=== PATIENT | female | born 1950 | race Caucasian/White ===

== ENCOUNTER 2023-08-04 09:00 | Outpatient (CLI) | payer MEDICARE, SELFPAY ==
--- NOTE | 2023-08-04 09:11 | NM_ITS ---
FINAL REPORT CLINICAL HISTORY: Abn MRI performed at another facility, Eval for metastisis, mid back pain, bilaterl arm pain and numbness, bilateral leg pain no hx of cancer per patient 9:25am 24.9 [facility] tc mdp FINDINGS: EXISTING RELEVANT IMAGING STUDIES: TECHNIQUE: The patient was injected with 24.9 mCi of technetium 99-[id number]. 3 hour delayed images were obtained. FINDINGS: No other abnormal tracer activity is identified to suggest occult fracture or metastatic disease. IMPRESSION: No findings to indicate metastatic bone disease. Reviewed, Interpreted and Dictated by Rochelle Gonzales MD Transcribed by Kendy Barr Authenticated and [facility]
[2023-08-04] MEDS: SODIUM CHLORIDE 0.9% 10ML SYR (RAD ONLY) 10 ML IV (09:30)
[2023-08-04] MEDS: ISOTOPE MDP (BONE);1 DOSE VIAL IV (09:30)
== END 2023-08-04 23:59 ==
LOC: RAD 09:02
PROVIDERS: Visit Provider Specialist
DX: G95.0 Syringomyelia and syringobulbia (principal); M79.603 Pain in arm, unspecified; R29.898 Other symptoms and signs involving the musculoskeletal system; R93.89 Abnormal findings on diagnostic imaging of other specified body structures
CPT/HCPCS: 78306; A9503

== ENCOUNTER 2023-08-06 16:03 | Outpatient (CLI) | payer MEDICARE, SELFPAY ==
[2023-08-06 16:55] LABS: Alanine Aminotransferase 20 U/L (12-78); Albumin Level 4.5 g/dl (3.5-5.0); Albumin/Globulin Ratio 1.7 (1.1-1.8); Alkaline Phosphatase 72 U/L (38-126); Anion Gap 11.9 mEq/L (5-15); Aspartate Amino Transferase 26 U/L (14-36); Bilirubin,Total 0.6 mg/dl (0.2-1.3); Blood Urea Nitrogen 8 mg/dl (7-17); Calcium 9.6 mg/dl (8.4-10.2); Carbon Dioxide 29 mmol/L (22.0-30.0); Chloride 103 mmol/L (98-107); Estimated Glomerular Filt Rate 122 ml/min (>60); GFR (African American) 148 ML/MIN (>60); Globulin 2.6 g/dL (1.3-3.2); Glucose 98 mg/dl (74-100); Potassium 3.9 mmoL/L (3.5-5.1); Sodium 140 mmol/L (136-145); Total Protein,Serum 7.1 g/dl (6.3-8.2)
[2023-08-06 17:37] LABS: Erythrocyte Sedimentation Rate 9 mm/hr (0-30)
[2023-08-06 17:45] LABS: Vitamin B12 783 pg/mL (239-931)
[2023-08-07 13:49] LABS: Anti-Centromere B Antibodies <0.2 AI (0.0-0.9); Anti-DNA (DS) Ab Qn <1 IU/mL (0-9); Anti-Jo-1 <0.2 AI (0.0-0.9); Anti-Smith Antibody <0.2 AI (0.0-0.9); Antichromatin Antibodies <0.2 AI (0.0-0.9); Antiscleroderma-70 Antibodies <0.2 AI (0.0-0.9); RNP Antibodies 0.2 AI (0.0-0.9); Sjogren's Anti-SS-A <0.2 AI (0.0-0.9); Sjogren's Anti-SS-B <0.2 AI (0.0-0.9)
== END 2023-08-06 23:59 ==
LOC: LAB 16:04
PROVIDERS: PCP Internal Medicine Adolescent Medicine; Visit Provider Specialist
DX: G54.0 Brachial plexus disorders (principal); G95.0 Syringomyelia and syringobulbia; M79.603 Pain in arm, unspecified; R29.898 Other symptoms and signs involving the musculoskeletal system; R93.89 Abnormal findings on diagnostic imaging of other specified body structures
CPT/HCPCS: 36415; 80053; 82607; 85651; 86225; 86235

== ENCOUNTER 2024-07-20 20:09 | Inpatient (IN) | payer MEDICARE, SELFPAY ==
[2024-07-20] VITALS (9 sets, daily range): BP systolic 171–182; BP diastolic 69–87; PULSE 82–95; RESP 16; TEMP 36.8–37.3; O2SAT 91–97; BMI 17.9
--- NOTE | 2024-07-20 20:02 | CT_ITS ---
PROCEDURE INFORMATION: Exam: CT Lumbar Spine Without Contrast Exam date and time: 07/20/2024 8:25 PM Age: 73 years old Clinical indication: Injury or trauma; Fall; Blunt trauma (contusions or hematomas); Additional info: Fall, midline and L hip TECHNIQUE: Imaging protocol: Computed tomography of the lumbar spine without contrast. Radiation optimization: All CT scans at this facility use at least one of these dose optimization techniques: automated exposure control; mA and/or kV adjustment per patient size (includes targeted exams where dose is matched to clinical indication); or iterative reconstruction. COMPARISON: CT LUMBAR SPINE WO CON 07/20/2024 8:19 PM FINDINGS: Bones/joints: There are 6 lumbar type vertebral bodies with lumbarization of S1. There is a mild superior endplate compression deformity at L1 and L2 without osseous retropulsion. Spinal cord: There is no significant central canal or neural foraminal stenosis. Soft tissues: Unremarkable. IMPRESSION: Mild age indeterminate compression fractures at L1 and L2. Transitional anatomy with lumbarized S1 vertebral body. No significant central canal or neural foraminal stenosis.
--- NOTE | 2024-07-20 20:02 | CT_ITS ---
PROCEDURE INFORMATION: Exam: CT Pelvis Without Contrast, Skeleton Exam date and time: 07/20/2024 8:19 PM Age: 73 years old Clinical indication: Injury or trauma; Fall; Blunt trauma (contusions or hematomas); Left; Hip; Additional info: Fall, L hip pain TECHNIQUE: Imaging protocol: Computed tomography of the pelvis without contrast. Exam focused on the skeleton. Radiation optimization: All CT scans at this facility use at least one of these dose optimization techniques: automated exposure control; mA and/or kV adjustment per patient size (includes targeted exams where dose is matched to clinical indication); or iterative reconstruction. COMPARISON: NM BONE SCAN WHOLE BODY 08/04/2023 12:58 PM FINDINGS: Vasculature: Moderate calcification of the aorta and iliac arteries. Bones/joints: Impacted mildly displaced fracture of the subcapital left femoral neck. Cortical and trabecular irregularity in the medial right superior pubic rami and pubic tubercle. Soft tissues: 3 cm subcutaneous hematoma posterior to the left greater trochanter. IMPRESSION: 1. Impacted mildly displaced fracture of the subcapital left femoral neck. 2. Cortical and trabecular irregularity in the medial right superior pubic rami and pubic tubercle. Suspicious for nondisplaced fracture, possibly subacute.
--- NOTE | 2024-07-20 20:02 | CT_ITS ---
PROCEDURE INFORMATION: Exam: CT Left Lower Extremity, Hip Exam date and time: 07/20/2024 8:22 PM Age: 73 years old Clinical indication: Injury or trauma; Fall; Blunt trauma; Hip; Left; Additional info: Fall, L lateral and posterior hip pain TECHNIQUE: Imaging protocol: CT of the left lower extremity without contrast was performed. Exam focused on the hip. Radiation optimization: All CT scans at this facility use at least one of these dose optimization techniques: automated exposure control; mA and/or kV adjustment per patient size (includes targeted exams where dose is matched to clinical indication); or iterative reconstruction. COMPARISON: CT BONY PELVIS 07/20/2024 8:19 PM FINDINGS: Bones/joints: Impacted fracture of the subcapital femoral neck with mild proximal retraction and posterior displacement of the distal fragment. Soft tissues: Normal. IMPRESSION: Impacted fracture of the subcapital femoral neck with mild proximal retraction and posterior displacement of the distal fragment.
--- NOTE | 2024-07-20 20:09 | PC.NURSE ---
pt to CT via stretcher
[2024-07-20] MEDS: KETOROLAC 30MG/ML VIAL 15 MG IV (20:10)
[2024-07-20] MEDS: ONDANSETRON 4MG/2ML VIAL 4 MG IV (20:10)
[2024-07-20] MEDS: HYDROMORPHONE 2MG/ML SYRINGE 0.5 MG IV (20:11)
[2024-07-20] MEDS: METHOCARBAMOL 500MG TABLET 1500 MG PO (20:51)
--- NOTE | 2024-07-20 20:51 | HMH.EDGENADL ---
Discharge Plan Disposition Patient Disposition: Admitted Chief Complaint: Fall Prescriptions Prescriptions: No Action multivitamin Tablet 1 tab PO DAILY mirtazapine 15 mg tablet 15 mg PO DAILY calcium carb-vit D2-soybean 600-200-25 mg-unit-mg tablet 600 tab PO .Q week hydroxyzine pamoate 25 mg capsule 25 mg PO DAILY gabapentin 300 mg capsule 300 mg PO DAILY MDD 900 mg Qty: 90 3RF Rx Instructions: 300 mg po qam and 600 mg po qhs Referrals Follow up/Referrals: Lawson Yarbrough MD [Primary Care Provider] - See instructions Clinical Impressions Clinical Impression: Closed fracture of left hip Print Language Print Language: [place]i Discharge ED Provider: Micheal Hernadez General Adult HPI General Chief complaint: Fall Stated complaint: Fall Time Seen by Provider: 07/20/24 20:10 Mode of Arrival: EMS Source of Information: Patient and EMS Limitations: Physical Limitations Description of Symptoms (Recalled from ER Triage Doc. by RN): Patient tripped over dogs water bowl which caused her to fall, striking her left side, elbow and hip. History of Present Illness HPI narrative: Please note that above description of symptoms, in this electronic medical record under categorization of recalled from ER triage doctor by RN are reflective of an initial nursing assessment, however, is not reflective of my full history and physical exam that was personally taken and clarified. Consequentially, this preceding description of symptoms, which may include the patient's categorized chief complaint in the EMR, do not reflect my personal clinical impression, and the ultimate description of history of present illness and patient stated complaints should be deferred to this section of the note. Unless stated otherwise or congruent with this section of the note, additional signs, symptoms, or incongruence should be interpreted as inaccurate with my clinical impression. Related Data Home Medications ?Medication ?Instructions ?Recorded ?Confirmed calcium carb-vit D2-soybean 600 600 tab PO .Q week 07/28/23 07/20/24 mg-200 unit-25mg tablet mirtazapine 15 mg tablet 15 mg PO DAILY 07/28/23 07/20/24 multivitamin 1 tab PO DAILY 11/17/23 07/20/24 hydroxyzine pamoate 25 mg capsule 25 mg PO DAILY 05/18/24 07/20/24 Previous Rx's ?Medication ?Instructions ?Recorded gabapentin 300 mg capsule 300 mg PO DAILY Neuropathic pain 05/18/24 #90 caps Allergies Allergy/AdvReac Type Severity Reaction Status Date / Time Sulfa (Sulfonamide Allergy Unknown Hives Verified 07/20/24 20:17 Antibiotics) codeine Allergy Hives Ver[facility]20/24 [facility] Disclaimer: The information contained in this section may have been updated after the patient was seen, as this information can be updated by other users. Medical History (Updated 07/20/24 @ 21:29 by Micheal Hernadez MD) Neuropathy Abnormal CT of the chest COPD (chronic obstructive pulmonary disease) History of cataract Depression Surgical History History of surgery on wrist Family History Other Cancer Social History Smoking Status: Former smoker tobacco type: cigarettes smoking status start date: 40 yrs ago alcohol intake: never substance use type: denies use current occupational status: retired Travel in the last 8 weeks: None household members: family housing: house marital status: single number of children: 1 Have you lived/traveled outside [place] in past 30 days?: No Contact w/someone who lives/traveled outside US past 30 days?: No Exposure to someone with infectious disease in past 14 days?: No Do you have a fever (greater than 100.4 F or 38 C)?: No Have you tested positive for COVID-19: No Exposed to someone with COVID-19 in past 14 days?: No Do you have a sore throat?: No Do you have a cough?: No Do you have any weakness?: No Do you have any diarrhea?: No Are you experiencing any unusual bleeding?: No Do you have any muscle aches/pain?: No Do you have any abdominal pain?: No Are you experiencing loss of taste or smell?: No Other Medical History Have you received the Pneumonia Vaccine: No ROS Obtained: Yes All systems reviewed & no additional complaints except as documented Physical Exam General General appearance: alert, in distress and cachectic Head Head exam: atraumatic and normocephalic Eye Eye exam: Present normal appearance, PERRL and EOMI Neck Neck exam: Present normal inspection, full ROM and trachea midline Respiratory Respiratory exam: Absent respiratory distress, wheezes, stridor, accessory muscle use or prolonged expiratory phase Cardiovascular Cardiovascular exam: Present other (Pulses equal symmetric in upper and lower extremities) Abdominal Exam Abdominal exam: Present soft; Absent distention, tenderness or pulsatile mass Extremities Exam Extremities exam: Present other (Per MDM); Absent edema Neurological Exam Neurological exam: Present alert, oriented X3 and CN II-XII intact; Absent motor sensory deficit Skin Skin exam: Present warm and dry; Absent diaphoresis or erythema Medical Decision Making Medical Records Medical records reviewed: Yes I reviewed the patient's medical records. Screening: Per USPSTF and CDC recommendations, given the prevalence of disease in our region, it is our hospital?s policy to screen for HIV and viral Hepatitis for all patients aged 18 and over and those with ongoing risk factors. Bryson Inquiry Pt receiving controlled substance: No Bryson was queried for this patient: No Vital Signs: 07/20/24 20:03 07/20/24 20:05 07/20/24 20:17 Temperature 99.1 F 99.1 F 99.1 F Temperature Source Axillary Axillary Axillary Pulse Rate 94 H Pulse Rate [Right Radial] 94 H 94 H Respiratory Rate 16 16 16 Blood Pressure 178/84 H Blood Pressure [Right Arm] 178/84 H 178/84 H Blood Pressure Mean [Right Arm] 115 115 Blood Pressure Source Automatic Cuff Blood Pressure Source [Right Arm] Automatic Cuff Automatic Cuff Blood Pressure Position Supine Blood Pressure Position [Right Arm] Supine 02 Sat by Pulse Oximetry 96 96 96 Oxygen Delivery Method Room Air Room Air Room Air 07/20/24 20:23 Temperature 98.6 F Temperature Source Oral Pulse Rate 83 Pulse Rate [Right Radial] Respiratory Rate 16 Blood Pressure 174/69 H Blood Pressure [Right Arm] Blood Pressure Mean [Right Arm] Blood Pressure Source Blood Pressure Source [Right Arm] Blood Pressure Position Blood Pressure Position [Right Arm] 02 Sat by Pulse Oximetry 92 L Oxygen Delivery Method Room Air Orders (Tests/Meds): ED MEDICATIONS Generic Name Dose Route Start Last Admin Trade Name Freq PRN Reason Stop Dose Admin Acetaminophen 650 mg 07/20/24 21:16 Acetaminophen 325mg Tab PO 08/19/24 21:15 Q4HP PRN Fever or Mild Pain (1-3) Hydrocodone Bitart/Acetaminophen 1 tab 07/20/24 21:16 Hydrocodone/Apap 5/325 Mg Tablet PO 08/19/24 21:15 Q4HP PRN Mild to Moderate Pain (1-6) Enoxaparin Sodium 40 mg 07/21/24 09:00 Enoxaparin 40mg/0.4ml Syringe SUBCUT 08/20/24 08:59 DAILY JAMESON Hydromorphone HCl 1 mg 07/20/24 21:16 Hydromorphone 2mg/Ml Syringe IV 08/19/24 21:15 Q4HP PRN Severe Pain (7-10) Sodium Chloride 1,000 mls @ 75 mls/hr 07/20/24 21:30 Sod Chlor 0.9% 1000ml Bag IV 08/19/24 21:29 .[id number] JAMESON Discontinued Medications Generic Name Dose Route Start Last Admin Trade Name Freq PRN Reason Stop Dose Admin Hydromorphone HCl 0.5 mg 07/20/24 20:02 07/20/24 20:11 Hydromorphone 2mg/Ml Syringe IV 07/20/24 20:03 0.5 mg ONCE ONE Administration Ketorolac Tromethamine 15 mg 07/20/24 20:02 07/20/24 20:10 Ketorolac 30mg/Ml Vial IV 07/20/24 20:03 15 mg ONCE ONE Administration Methocarbamol 1,500 mg 07/20/24 20:46 07/20/24 20:51 Methocarbamol 500mg Tablet PO 07/20/24 20:47 1,500 mg ONCE ONE Administration Ondansetron HCl 4 mg 07/20/24 20:02 07/20/24 20:10 Ondansetron 4mg/2ml Vial IV 07/20/24 20:03 4 mg ONCE ONE Administration ORDERS Category Date Time Status CT bony pelvis Stat Cat Scan 07/20/24 20:[address] hip LT wo con Stat Cat Scan 07/20/24 20:[address] lumbar spine wo con Stat Cat Scan 07/20/24 20:02 Completed Consult to On-Call Orthopedic Surgeon [CONS] Routine Cons 07/21/24 09:00 Ordered Basic Metabolic Panel [facility] 07/21/24 06:00 Ordered Basic Metabolic Panel [facility] 07/22/24 06:00 Ordered Basic Metabolic Panel [facility] Lab 07/23/24 06:00 Ordered Basic Metabolic Panel [facility] Lab 07/24/24 06:00 Ordered Basic Metabolic Panel [facility] Lab 07/25/24 06:00 Ordered Basic Metabolic Panel [facility] Lab 07/26/24 06:00 Ordered Basic Metabolic Panel [facility] Lab 07/27/24 06:00 Ordered Basic Metabolic Panel [facility] Lab 07/28/24 06:00 Ordered Basic Metabolic Panel [facility] Lab 07/29/24 06:00 Ordered Basic Metabolic Panel [facility] Lab 07/30/24 06:00 Ordered Complete Blood Count Auto Diff [facility] Lab 07/21/24 06:00 Ordered Complete Blood Count Auto Diff [facility] Lab 07/22/24 06:00 Ordered Complete Blood Count Auto Diff [facility] Lab 07/23/24 06:00 Ordered Complete Blood Count Auto Diff [facility] Lab 07/24/24 06:00 Ordered Complete Blood Count Auto Diff [facility] Lab 07/25/24 06:00 Ordered Complete Blood Count Auto Diff [facility] Lab 07/26/24 06:00 Ordered Complete Blood Count Auto Diff [facility] Lab 07/27/24 06:00 Ordered Complete Blood Count Auto Diff [facility] Lab 07/28/24 06:00 Ordered Complete Blood Count Auto Diff [facility] Lab 07/29/24 06:00 Ordered Complete Blood Count Auto Diff [facility] Lab 07/30/24 06:00 Ordered HIV Combo Routine Lab 07/20/24 20:10 Ordered Hepatitis C Ab Qual. W/ RFX Routine Lab 07/20/24 20:10 Ordered ECG Request Routine Y 07/20/24 21:16 Ordered Medical Decision Narrative: 73-year-old female history of hypertension, COPD presenting with fall. Patient states that she was walking around at home, tripped over her dog leash. Landed on her left hip. Unable to bear weight since that time, so called EMS. EMS brought her to the emergency department. EMS gave 50 mcg of fentanyl, patient states that did not help almost at all. Pain is left lateral hip, not in inguinal fold. 10 out of 10. States she did not hit her head, did not lose consciousness, no anticoagulation. History was obtained via conversation with patient. On arrival, patient hemodynamically stable, alert, oriented x4, appropriate, GCS 15, moving all extremities spontaneously, pupils equal and reactive to light. Full physical exam performed and significant for chronically ill-appearing female in moderate to severe distress secondary to pain. Neurovascularly intact left lower extremity, however it is shortened, internally rotated, and maximally tender with any motion of the left lower extremity. Differential includes fracture, sprain, strain, dislocation, among others. Patient placed on continuous cardiac monitoring and continuous pulse ox with initial blood pressure 174/84, heart rate 94, saturation 96% on room air. Patient was given IV Dilaudid and Toradol for symptomatic management and correction of underlying abnormalities. Patient also given Robaxin p.o. for muscle spasm. Workup independently interpreted and significant for subacute right pubic rami fractures which are in stages of healing. Corticated. Patient has anatomic left femoral neck fracture with mild displacement and rotation. On reevaluation, patient in significant pain, given more pain medications. Orthopedics was consulted and case was discussed, graciously accepted patient for admission and surgical fixation tomorrow, 07/21. N.p.o. at midnight. Given patient presentation, workup, history, this most likely represents left anatomic femoral neck fracture after fall. Because patient high risk for clinical decompensation, deemed appropriate for inpatient admission. Results were relayed to patient who voiced understanding and patient was agreeable to inpatient admission and management. Patient was admitted to the hospital for further definitive management. Division [employer] disclaimer Much of this encounter note is an electronic functional mental disability teacher spoken language to printed text. Electronic functional mental disability teacher of the spoken language may permit errors. Although I have reviewed the note, some errors may still exist. Critical Care Critical Care Time Critical Care Time: No
--- NOTE | 2024-07-20 21:21 | EXP.HP ---
History of Present Illness *Admission Date: 07/20/24 *Reason for visit:: Hip pain *History of present illness: This is a 73-year-old female with a past medical history significant for neuropathy, COPD, cataracts, and depression presents with a chief complaint of left hip pain. Due to patient's symptoms, she was transitioned to the emergency room via EMS for evaluation. While in emergency room, CT scan of the hip revealed an impacted mildly displaced fracture of the subcapital left femoral neck, cortical and trabecular irregularity in the medial right superior pubic rami and pubic tubercle suspicious for nondisplaced fracture which is possibly subacute. Due to these findings, patient has been admitted for further management. During my evaluation of patient, patient states she tripped over her dog leash. Post fall she had pain to her left hip. She was unable to bear weight post fall. Prior to the fall, patient states that she was able to tolerate walking to and from her mailbox without any shortness of breath, she states she can ascend stairs without any shortness of breath, and she can lift at least 10 pounds. This is a METS of at least 4. She is currently denying any syncope, near syncope, chest pain, shortness of breath, lightheadedness, dizziness, fever, chills, rigors, nausea, vomiting, or diarrhea. Additional workup in emergency room was nonrevealing. [facility] Disclaimer: The information contained in this section may have been updated after the patient was seen, as this information can be updated by other users. Medical History (Updated 07/20/24 @ 21:30 by Margarito Marte APRN) Neuropathy Abnormal CT of the chest COPD (chronic obstructive pulmonary disease) History of cataract Depression Surgical History History of surgery on wrist Family History Other Cancer Social History (Updated 07/20/24 @ 22:20 by Rosangela Slaughter RN) Smoking Status: Former smoker tobacco type: cigarettes smoking status start date: 40 yrs ago alcohol intake: never substance use type: denies use current occupational status: retired Travel in the last 8 weeks: None household members: family housing: house marital status: single number of children: 1 Have you lived/traveled outside US in past 30 days?: No Contact w/someone who lives/traveled outside US past 30 days?: No Exposure to someone with infectious disease in past 14 days?: No Do you have a fever (greater than 100.4 F or 38 C)?: No Have you tested positive for COVID-19: No Exposed to someone with COVID-19 in past 14 days?: No Do you have a sore throat?: No Do you have a cough?: No Do you have any weakness?: No Are you experiencing any nausea/vomitting?: No Do you have any diarrhea?: No Are you experiencing any unusual bleeding?: No Do you have any muscle aches/pain?: No Do you have any abdominal pain?: No Are you experiencing loss of taste or smell?: No Other Medical History Have you received the Pneumonia Vaccine: No Review of Systems Review of Systems Review of systems:: pertinent systems reviewed and negative unless documented below Constitutional Constitutional: Reports system reviewed and no additional complaints, except as documented Eyes Eyes: Reports system reviewed and no additional complaints, except as documented ENT Ears, Nose, Mouth, and Throat: Reports system reviewed and no additional complaints, except as documented *Cardiovascular Cardiovascular: Reports system reviewed and no additional complaints, except as documented *Respiratory Respiratory: Reports system reviewed and no additional complaints, except as documented *Gastrointestinal Gastrointestinal: Reports system reviewed and no additional complaints, except as documented *Genitourinary Genitourinary: Reports system reviewed and no additional complaints, except as documented *Musculoskeletal Musculoskeletal: Reports arthralgias and Reports limited range of motion Integumentary/Breasts Skin/Breast: Reports system reviewed and no additional complaints, except as documented *Neurologic Neurologic: Reports system reviewed and no additional complaints, except as documented Psychiatric Psychiatric: Reports system reviewed and no additional complaints, except as documented Endocrine Endocrine: Reports system reviewed and no additional complaints, except as documented Hematologic/Lymphatic Hematologic/Lymphatic: Reports system reviewed and no additional complaints, except as documented Allergic/Immunologic Allergic/Immunologic: Reports system reviewed and no additional complaints, except as documented Meds Home Medications and Allergies Home Medications ?Medication ?Instructions ?Recorded ?Confirmed ?Type calcium carb-vit D2-soybean 600 1 tab PO .Q week 07/28/23 07/20/24 History mg-200 unit-25mg tablet mirtazapine 15 mg tablet 30 mg PO DAILY 07/28/23 07/20/24 History multivitamin 1 tab PO DAILY 11/17/23 07/20/24 History hydroxyzine pamoate 25 mg capsule 25 mg PO DAILY 05/18/24 07/20/24 History gabapentin 300 mg capsule See Rx Instructions .Route 07/20/24 07/20/24 History .COMPLEX Neuropathic pain New Prescriptions to Start Prescriptions: Allergies Allergy/AdvReac Type Severity Reaction Status Date / Time Sulfa (Sulfonamide Allergy Unknown Hives Verified 07/20/24 20:17 Antibiotics) codeine Allergy Hives Verified 07/20/24 20:17 Exam Data for Last 24 hours Vital signs and Labs for Last 24 Hours: Temp Pulse Resp BP Pulse Ox O2 Del Method 98.6 F 83 16 174/69 H 92 L Room Air 07/20/24 20:23 07/20/24 20:23 07/20/24 20:23 07/20/24 20:23 07/20/24 20:23 07/20/24 20:23 I & O for Last 24 hours: Intake & Output 07/17/24 07/18/24 07/19/24 07/20/24 23:59 23:59 23:59 23:59 Weight 41.73 kg Constitutional Constitutional: no acute distress, thin and cachectic *Routine HEENT Exam Head: Present normocephalic Eye: Present EOMI and PERRL ENT: Present mucous membranes moist Comments: Patient is a dentulous *Routine Neck Exam Neck: Present supple and full ROM *Routine Respiratory Exam Respiratory: Present normal respiratory effort, able to speak in complete sentences and symmetric chest movement *Routine Cardiovascular Exam Cardiovascular: Present RRR, Normal S1 and Normal S2 *Routine Abdominal Exam Abdominal: Present soft and normoactive bowel sounds *Routine Rectal Exam Rectal:: deferred *Routine Genitalia Exam Genitalia:: deferred *Routine Extremities Exam Extremities: Present pulses intact and normal capillary refill Comments: Left leg is likely turned laterally Routine Back/Spine/Pelvis Exam Back/Spine: Present pain with rotation *Routine Skin Exam Skin: Present intact and dry *Routine Neurological Exam Neurological: Present alert, oriented X3, CN II-XII intact and normal speech Routine Psychiatric Exam Psychiatric: Present normal affect, normal thought process, cooperative, good insight and good judgment H&P: Result Impressions 73-year-old female presents after she tripped and fell over her dog leash now has left hip fracture. Patient has no significant cardiac history and is able to tolerate at least 4 METS of activity. The orthopedic team voiced willingness to take patient to the OR suite for surgical fixation Assessment and Plan *Assessment and plan (1) Closed fracture of left hip: Status: Acute Qualifiers: Encounter type: initial encounter Qualified Code(s): S72.002A - Fracture of unspecified part of neck of left femur, initial encounter for closed fracture Category: Medical Code(s): S72.002A - Fracture of unspecified part of neck of left femur, initial encounter for closed fracture (2) Ground-level fall: Status: Acute Category: Medical Code(s): W18.30XA - Fall on same level, unspecified, initial encounter Plan Assessment Ground-level fall with trauma -Currently, patient is without any findings consistent with syncope -Patient does remember fall Mildly displaced left hip fracture -Patient currently has a revised cardiac index of 0 which is a 3.9% risk of major cardiac event -Other the general risks anesthesia this represents a mild risk surgery -Ultimately, it would be in patient's best interest to proceed with surgery -Patient does have significant advanced age -Will obtain EKG and 2D echo to further evaluate the heart-subjective change per attending Plan: [facility] Bed rest SCDs to bilateral lower extremity Supplemental oxygen to maintain oxygen saturation greater than 94% Vital signs every shift Consult orthopedic team Regular diet and then n.p.o. after midnight CBC/BMP daily 40 mg of enoxaparin subcu daily for DVT prophylaxis 5 mg [place] p.o. every 4 hours PMR pain 1 mg hydromorphone IV push every 4 hours as needed severe pain 4 mg Zofran IV push every 8 hours pain nausea vomiting I will discuss this case with attending physician Dr. Saul I look forward to more input
[2024-07-20] MEDS: HYDROMORPHONE 2MG/ML SYRINGE 1 MG IV (21:26)
--- NOTE | 2024-07-20 21:56 | PC.NURSE ---
Patient arrived to floor via stretcher from ED at 21:50.
[2024-07-20] MEDS: HYDROCODONE/APAP 5/325 MG TABLET 1 TAB PO (22:07)
[2024-07-20] MEDS: 0.9 % SODIUM CHLORIDE 1000ML 1,000 ML 75 ML IV (22:08)
[2024-07-20] MEDS: PROCHLORPERAZINE 10MG/2ML VIAL 10 MG IV (22:54)
--- NOTE | 2024-07-20 23:04 | ECG_ITS ---
APPROVED REPORT Exam: Resting ECG HR:84 bpm ECG Measurements Heart Rate 84 AXES MO 209 P 84 QRSd 80 QRS -41 QT 352 T 84 QTc 393 Conclusion SINUS RHYTHM WITH SINUS ARRHYTHMIA Atrial abnormality LEFT AXIS DEVIATION [QRS AXIS < -30] SEPTAL MYOCARDIAL INFARCTION , OF INDETERMINATE AGE [40+ ms Q WAVE IN V1/V2] ABNORMAL ECG UNCONFIRMED REPORT Electronically signed by : Lawson Yarbrough MD 07/21/2024 21:05:56
[2024-07-21] VITALS (21 sets, daily range): BP systolic 120–184; BP diastolic 62–91; PULSE 76–103; RESP 10–28; TEMP 36.4–43; O2SAT 90–99; BMI 18.8
--- NOTE | 2024-07-21 04:45 | PC.NURSE ---
patient was admitted this shift after falling at home, patient is alert and oriented X4, no acute changes since previous assessment, patient has been medicated per aug for pain in left hip, bed alarm is on and functioning, call button is in reach
[2024-07-21] MEDS: HYDROMORPHONE 2MG/ML SYRINGE 1 MG IV ×4 (04:55→16:19)
[2024-07-21 06:06] LABS: Basophils # 0.1 K/mm3 (0-0.2); Basophils % 0.7 % (0.1-2.0); Eosinophils % 0.2 % (0.1-12.0); Hematocrit 37.9 % (37.0-47.0); Hemoglobin 12.5 g/dL (12.2-16.2); Lymphocytes % 16.1 % (10-50); Mean Corpuscular Hemoglobin 31.1 pg (27.0-31.2); Mean Corpuscular Volume 94.3 fl (81-99); Mean Platelet Volume 10.8 fl (7.4-10.4); Neutrophils # 9.3 K/mm3 (1.8-7.8); Neutrophils % 74.6 % (37.0-80.0); Platelet Count 173 K/mm3 (142-424); Red Blood Count 4.02 M/mm3 (4.20-5.40); White Blood Count 12.5 K/mm3 (4.8-10.8)
[2024-07-21 06:13] LABS: Chloride 102 mmol/L (98-107); Sodium 135 mmol/L (136-145)
[2024-07-21 06:16] LABS: Blood Urea Nitrogen 12 mg/dl (7-17); Calcium 8.7 mg/dl (8.4-10.2); Carbon Dioxide 27 mmol/L (22.0-30.0); Creatinine Clearance Estimated 36 mL/min (50-200); Estimated Glomerular Filt Rate 157 ml/min (>60); GFR (African American) 190 ML/MIN (>60); Glucose 119 mg/dl (74-100)
--- NOTE | 2024-07-21 07:00 | CA_ITS ---
APPROVED REPORT EXAM: Comprehensive 2D, Doppler, and color-flow Echocardiogram Organic Chemistry Professor: Hanna Stoll RVT Ht: 4 ft 11 in Wt: 96lbs BSA: 1.35 BP: 174/69 mmHg Indications: PRE-OP LT HIP FX,COPD,CHF TDS-PT FLAT ON BACK-HIP FX M-Mode Dimensions RVDd 3.53 cm (0.9-2.6) LA Diam 2.27 cm (1.9-4.0) LVDd 3.32 cm (3.5-5.7) LVDs 2.07 cm (3.5-5.7) IVSd 0.71 cm (0.6-1.1) PWd 0.68 cm (0.6-1.1) EF (Teich) 69.00% FS 37.70% EDV (Teich) 44.80 mL TAPSE 2.79 (<1.7) ESV (Teich) 13.90 mL LV Diastology E Decel Time 150 (160-240 msec) E/A Ratio 0.8 Aortic Valve ADAM Index 1.33 cm2/m2 AoV Peak Min. 123.0 (50-130 cm/s) AO Peak GR. 6.10 mmHg AO Mean GR. 3.20 (<5 mmHg) AO VTI 25.7 (18-25 cm) ADAM (VTI) 1.83 (2.5-4.5 cm2) Mitral Valve MV E Max Min. 66.0 (40-130 cm/s) MV A Velocity 83.0 (40-130 cm/s) E/A Ratio 0.80 MV PHT 44.0 ms Pulmonary Valve PV Peak Velocity 79.0 (50-150 cm/s) Tricuspid Valve TR P. Velocity 357.00 cm/s RAP Estimate 10.00 mmHg RVSP 61.10 mmHg Left Ventricle The left ventricle is normal size. The left ventricular systolic function is normal. The left ventricular ejection fraction is within the normal range. There is increased LV wall thickness. The septum is asynchronous. Diastolic function is indeterminate. LVEF is 55%. Right Ventricle Right ventricle is moderately to severely dilated. Right ventricle is mildly hypokinetic. Atria Left atrium is mildly dilated. Right atrium is severely dilated. There is no Doppler evidence of interatrial shunt. Aortic Valve The aortic valve is mildly thickened. There is no aortic valvular stenosis. Trace aortic regurgitation. Mitral Valve The mitral valve is normal in structure. No evidence of mitral valve stenosis. Trace mitral regurgitation. Tricuspid Valve Tricuspid valve is grossly normal in structure and function. Moderate tricuspid regurgitation. RVSP is 45-50 mmHg. Pulmonic Valve The pulmonary valve is normal in structure. Trace pulmonic regurgitation. Great Vessels The aortic root is normal in size. The ascending aorta is normal in size. IVC is normal in size and collapses >50% with inspiration. Pericardium There is no pericardial effusion. Other Information Study Quality: Adequate Conclusion Normal LV systolic function. Moderate to severe RV dilation with mild reduction in RV function. Biatrial dilation. Moderate TR. Elevated RVSP 45-50 mmHg. Electronically signed by : Nory Bolton MD 07/21/2024 19:02:50
--- NOTE | 2024-07-21 07:32 | XR_ITS ---
FINAL REPORT CLINICAL HISTORY: preop, shortness of breath hip hemiarthroplasty COMPARISON: None FINDINGS: A portable view of the chest is obtained. Cardiac and mediastinal silhouettes are normal. There is no infiltrate, effusion, or pneumothorax. There are changes from emphysema. IMPRESSION: No acute process on this portable exam. Emphysema. Reviewed, Interpreted and Dictated by Rochelle Gonzales MD Transcribed by Yamel Abbasi Authenticated and [facility]
[2024-07-21 07:37] LABS: HIV Combo NEGATIVE (Negative)
--- NOTE | 2024-07-21 07:38 | P.CONS_ITS ---
History of Present Illness *Admission Date: 07/20/24 *History of present illness: This is a 73-year-old female with a past medical history significant for neuropathy, COPD, cataracts, and depression presents with a chief complaint of left hip pain. Due to patient's symptoms, she was transitioned to the emergency room via EMS for evaluation. While in emergency room, CT scan of the hip revealed an impacted mildly displaced fracture of the subcapital left femoral neck, cortical and trabecular irregularity in the medial right superior pubic rami and pubic tubercle suspicious for nondisplaced fracture which is possibly subacute. Due to these findings, patient has been admitted for further management. During my evaluation of patient, patient states she tripped over her dog leash. Post fall she had pain to her left hip. She was unable to bear weight post fall. Prior to the fall, patient states that she was able to tolerate walking to and from her mailbox without any shortness of breath, she states she can ascend stairs without any shortness of breath, and she can lift at least 10 pounds. Orthopedics consulted regarding definitive treatment options for hip fracture [facility] Disclaimer: The information contained in this section may have been updated after the patient was seen, as this information can be updated by other users. Medical History (Updated 07/21/24 @ 07:40 by Miky Cantrell DO) Neuropathy Abnormal CT of the chest COPD (chronic obstructive pulmonary disease) History of cataract Depression Surgical History History of surgery on wrist Family History Other Cancer Social History (Updated 07/20/24 @ 22:20 by Rosangela Slaughter RN) Smoking Status: Former smoker tobacco type: cigarettes smoking status start date: 40 yrs ago alcohol intake: never substance use type: denies use current occupational status: retired Travel in the last 8 weeks: None household members: family housing: house marital status: single number of children: 1 Have you lived/traveled outside US in past 30 days?: No Contact w/someone who lives/traveled outside US past 30 days?: No Exposure to someone with infectious disease in past 14 days?: No Do you have a fever (greater than 100.4 F or 38 C)?: No Have you tested positive for COVID-19: No Exposed to someone with COVID-19 in past 14 days?: No Do you have a sore throat?: No Do you have a cough?: No Do you have any weakness?: No Are you experiencing any nausea/vomitting?: No Do you have any diarrhea?: No Are you experiencing any unusual bleeding?: No Do you have any muscle aches/pain?: No Do you have any abdominal pain?: No Are you experiencing loss of taste or smell?: No Review of Systems *Neurologic Neurologic: Reports system reviewed and no additional complaints, except as documented Meds Home Medications and Allergies Home Medications ?Medication ?Instructions ?Recorded ?Confirmed ?Type calcium carb-vit D2-soybean 600 1 tab PO .Q week 07/28/23 07/20/24 History mg-200 unit-25mg tablet mirtazapine 15 mg tablet 30 mg PO DAILY 07/28/23 07/20/24 History multivitamin 1 tab PO DAILY 11/17/23 07/20/24 History hydroxyzine pamoate 25 mg capsule 25 mg PO DAILY 05/18/24 07/20/24 History gabapentin 300 mg capsule See Rx Instructions .Route 07/20/24 07/20/24 History .COMPLEX Neuropathic pain New Prescriptions to Start Prescriptions: Allergies Allergy/AdvReac Type Severity Reaction Status Date / Time Sulfa (Sulfonamide Allergy Unknown Hives Verified 07/20/24 20:17 Antibiotics) codeine Allergy Hives Verified 07/20/24 20:17 Ortho Exam (Inpt) Vital signs and Labs for Last 24 Hours: Temp Pulse Resp BP Pulse Ox O2 Del Method O2 Flow Rate 98.1 F 86 16 134/69 92 L Room Air 1 07/21/24 04:00 07/21/24 04:00 07/21/24 04:00 07/21/24 04:00 07/21/24 04:00 07/21/24 06:46 07/20/24 21:40 Laboratory Results - last 24 hr 07/21/24 05:31: WBC 12.5 H, RBC 4.02 L, Hgb 12.5, Hct 37.9, MCV 94.3, MCH 31.1, MCHC 33.0, RDW 13.0, Plt Count 173, MPV 10.8 H, Neut % (Auto) 74.6, Lymph % (Auto) 16.1, [place] % (Auto) 8.0, Eos % (Auto) 0.2, Baso % (Auto) 0.7, Neut # (Auto) 9.3 H, Lymph # (Auto) 2.0, [place] # (Auto) 1.0, Eos # (Auto) 0.0, Baso # (Auto) 0.1, Sodium 135 L, Potassium 4.0, Chloride 102, Carbon Dioxide 27, Anion Gap 10.0, BUN 12, Creatinine 0.40 L, Estimated Creat Clear 36, Estimated GFR 157, Est GFR ( Amer) 190, Glucose 119 H, Calcium 8.7 I & O for Labs for Last 24 Hours: Intake & Output 07/18/24 07/19/24 07/20/24 07/21/24 23:59 23:59 23:59 23:59 Intake Total 740 / 740 Output Total 375 / 375 Balance 365 / 365 Weight 92 lb 96 lb 1.6 oz Additional findings:: Left hip: Tenderness with any range of motion of the hip. Very mildly shortened. Groin pain with any attempted range of motion unable to lift leg. CT scan of the left hip show displaced femoral neck fracture. Results Labs 07/21/24 05:31 07/21/24 05:31 Labs: Abnormal lab results 07/21/24 Range/Units 05:31 WBC 12.5 H (4.8-10.8) K/mm3 RBC 4.02 L (4.20-5.40) M/mm3 MPV 10.8 H (7.4-10.4) fl Neut # (Auto) 9.3 H (1.8-7.8) K/mm3 Sodium 135 L (136-145) mmol/L Creatinine 0.40 L (0.52-1.04) mg/dl Glucose 119 H (74-100) mg/dl H & H 07/21/24 Range/Units 05:31 Hgb 12.5 (12.2-16.2) g/dL Hct 37.9 (37.0-47.0) % All other labs normal. Assessment and Plan *Assessment and plan (1) Left displaced femoral neck fracture: Status: Acute Category: Medical Code(s): S72.002A - Fracture of unspecified part of neck of left femur, initial encounter for closed fracture Plan I had a discussion with her this morning regarding treatment options. She has displaced femoral neck fracture. Operative intervention is indicated to allow for early weightbearing immobilization. PROPOSED SURGERY: Hemiarthroplasty left hip the risks and benefits of the proposed surgery were discussed in depth with the patient. Potential complications including inherent risk of anesthesia, infection, neurovascular damage, DVT, and rare but real potential loss of limb or life were all reviewed. Patient voices understanding and seems to understand to my satisfaction and wishes to proceed with surgery. I gave them adequate time to ask any questions they have pertaining to this surgery and answered all of them to the best of my ability. I gave them no guarantees in regards to outcomes of this surgery.
[2024-07-21 07:45] LABS: Hepatitis C Ab Qual. W/ RFX NEGATIVE (Negative)
[2024-07-21] MEDS: HYDROCODONE/APAP 5/325 MG TABLET 1 TAB PO ×3 (08:14→19:47)
--- NOTE | 2024-07-21 08:43 | HMH.PHAINT1 ---
Pharmacy Intervention Comments: MEDICATION RECONCILIATION COMPLETED ON PATIENT USING EXTERNAL FILL HISTORY FROM PHARMACY AND LIST FROM NEUROLOGY OFFICE. -ELINA CASTELLANOS, JOVANNYD
--- NOTE | 2024-07-21 12:06 | P.PNANES_ITS ---
[facility] Disclaimer: The information contained in this section may have been updated after the patient was seen, as this information can be updated by other users. Medical History (Updated 07/21/24 @ 07:40 by Miky Cantrell DO) Neuropathy Abnormal CT of the chest COPD (chronic obstructive pulmonary disease) History of cataract Depression Surgical History History of surgery on wrist Family History Other Cancer Social History (Updated 07/20/24 @ 22:20 by Rosangela Slaughter RN) Smoking Status: Former smoker tobacco type: cigarettes smoking status start date: 40 yrs ago alcohol intake: never substance use type: denies use current occupational status: retired Travel in the last 8 weeks: None household members: family housing: house marital status: single number of children: 1 Have you lived/traveled outside US in past 30 days?: No Contact w/someone who lives/traveled outside US past 30 days?: No Exposure to someone with infectious disease in past 14 days?: No Do you have a fever (greater than 100.4 F or 38 C)?: No Have you tested positive for COVID-19: No Exposed to someone with COVID-19 in past 14 days?: No Do you have a sore throat?: No Do you have a cough?: No Do you have any weakness?: No Are you experiencing any nausea/vomitting?: No Do you have any diarrhea?: No Are you experiencing any unusual bleeding?: No Do you have any muscle aches/pain?: No Do you have any abdominal pain?: No Are you experiencing loss of taste or smell?: No [facility] Anesthesia Checklist Patient Identification Patient Identification: Arm Band Structural Data Admitted From: Home Planned Operative Procedure/s: Left Hip Hemiarthroplasty Consent for Planned Operative Procedure(s) Verified: Yes Verified Documents: Surgical Consent and History and Physical NPO Status Verified Time NPO: 00:00 Additional verifications Anesthesia Reactions: No Airway Assessment Mallampati Score:: Class II C-Spine Mobility Assessed: Yes TMJ Mobility Assessed: Yes Dentition: Edentulous Neurological Assessment Level of Consciousness: Awake, Alert and Appropriate Anesthesia Plan Anesthesia Risk discussed: Yes Anesthesia Plan: Verified ASA Class: III Anesthesia Type: General
--- NOTE | 2024-07-21 12:09 | DIET.NUTRFU ---
when sx okay oral diet advance to MSOFT chopped with homemade vanilla and strawberry BID assist with meals, continue remeron tx. Based on PMH patient has had significant wt loss, chewing difficulties and tremors. She will need 1:1 assistance with meals. She qualifies for SPCM, provider aware
[2024-07-21] MEDS: CEFAZOLIN SODIUM 1 GM in 0.9 % SODIUM CHLORIDE 50 ML IV (12:25)
--- NOTE | 2024-07-21 14:56 | XR_ITS ---
FINAL REPORT CLINICAL HISTORY: S/P total arthroplasty left hip COMPARISON: None FINDINGS: SINGLE VIEW PELVIS: A single view of the pelvis was obtained. There are changes from total left hip arthroplasty. The hardware is intact. No immediate complication identified. There is no acute fracture or dislocation. Visualized joint spaces are normally aligned. There are expected soft tissue changes adjacent to the left hip. IMPRESSION: No acute abnormality status post total left hip arthroplasty. Reviewed, Interpreted and Dictated by Rochelle Gonzales MD Transcribed by Yamel Abbasi Authenticated and [facility]
--- NOTE | 2024-07-21 14:59 | EXP.ANES.I ---
[facility] Anesthesia Record Part I Anesthesia Record I Intake, IV Amount: 1,000 Hydration: Adequate Estimated blood loss (mL): 100 Urine output (mL): 200 Blood Products used (#): none Blood Pressure: 120/62 SaO2: 99 Pulse Rate: 78 Airway Patency: Patent Respiratory Rate: 10 Temperature: 98.6 F Patient is:: Drowsy and Stable Stable to PACU at:: 14:50
--- NOTE | 2024-07-21 15:14 | EXP.OP.NOTE ---
Date of procedure: 07/21/24 Pre-op Diagnosis:: Displaced left femoral neck fracture Post-op Diagnosis:: Same Procedure performed:: Hemiarthroplasty left hip Surgeon:: Miky Cantrell DO Retail Customer Service Specialist(s):: Liu JOSEPH QUICK PRINT OPERATOR:: Jayden Arceo Anesthesia: GETA Estimated blood loss (mL): 100 Operative findings:: Displaced femoral neck fracture Operative note:: Patient notified preoperatively. Left hip marked with yes my initial. Taken operating suite given general anesthesia airway secured. Then placed in the lateral position on the operative bed with all bony prominences well-padded and the hip holding device. All bony prominences well-padded. Then the left hip was prepped and draped normal sterile fashion. Once prepped and draped final operative timeout performed to identify proper patient procedure and extremity. Everyone involved the case agreed. No counter indications to beginning. Did receive preoperative antibiotics Marking pen was used to santos plan incision over the lateral hip. Skin knife was used incise through skin dissection was taken down the IT band which was cut in line with the femur Charnley retractor was placed this identified the abductors of the hip using a modified Hardinge approach abductors were split and retractor was placed to protect the abductors anteriorly. Capsule was split in line to identify the fracture site fracture hematoma evacuated. Cleanup osteotomy was performed of the femoral neck fingerbreadth above the lesser troches. Excess bone removed and the femoral head was removed sized to a size 47. Once the hip was removed the acetabular was cleaned with any debris and bone fragments. Attention was then brought to the femur and the leg was placed anteriorly within the bag femoral neck elevator was placed cookie cutter reamer was utilized for lateralization followed by the opening hand canal finder followed by the smallest broach and broached from a size 8 to a size 1212 gave good fit and fill within the canal. A size 12 implant was selected none collared press-fit stem as well as a 47 head and a +1.5 neck irrigation of the wound was performed. Once completed the final implant was impacted into place the hip was reduced and taken through range of motion found to be stable to flexion extension internal and external rotation. Irrigation repeated. Capsule then was closed with 0 Vicryl the abductors were repaired with FiberWire stitch. IT band closed with STRATAFIX suture deep layers 0 Vicryl subcutaneous 2-0 Vicryl surgical clips in the skin sterile dressing placed patient waken anesthesia taken recovery stable condition. Condition: stable Disposition: PACU Complications:: None apparent
[2024-07-21] MEDS: 0.9 % SODIUM CHLORIDE 1000ML 1,000 ML 75 ML IV (16:09)
[2024-07-21] MEDS: hydrOXYzine pamoate 25MG CAPSULE 25 MG PO (21:33)
[2024-07-21] MEDS: GABAPENTIN 300MG CAPSULE 600 MG PO (21:40)
[2024-07-21] MEDS: MIRTAZAPINE 15 MG TABLET 30 MG PO (21:41)
--- NOTE | 2024-07-21 21:54 | P.PN_ITS ---
Subjective *Date: 07/22/24 *Time: 14:12 Interval history: This morning, patient endorses left hip pain which is reasonably well-managed with Dilaudid. Surgery scheduled for 1 PM today. No other acute concerns. Exam Data for Last 24 hours Vital signs and Labs for Last 24 Hours: Temp Pulse Resp BP Pulse Ox O2 Del Method O2 Flow Rate 99.0 F 95 H 18 154/84 H 94 L Nasal Cannula 1 07/21/24 20:00 07/21/24 20:00 07/21/24 20:00 07/21/24 20:00 07/21/24 20:00 07/21/24 20:00 07/21/24 20:00 Laboratory Results - last 24 hr 07/20/24 05:31: HCV Ab ALMA w/Rflx PCR Qn Negative, HIV Ag/Ab Combo Qual Negative 07/21/24 05:31: WBC 12.5 H, RBC 4.02 L, Hgb 12.5, Hct 37.9, MCV 94.3, MCH 31.1, MCHC 33.0, RDW 13.0, Plt Count 173, MPV 10.8 H, Neut % (Auto) 74.6, Lymph % (Auto) 16.1, [place] % (Auto) 8.0, Eos % (Auto) 0.2, Baso % (Auto) 0.7, Neut # (Auto) 9.3 H, Lymph # (Auto) 2.0, [place] # (Auto) 1.0, Eos # (Auto) 0.0, Baso # (Auto) 0.1, Sodium 135 L, Potassium 4.0, Chloride 102, Carbon Dioxide 27, Anion Gap 10.0, BUN 12, Creatinine 0.40 L, Estimated Creat Clear 36, Estimated GFR 157, Est GFR ( Amer) 190, Glucose 119 H, Calcium 8.7 I & O for Last 24 hours: Intake & Output 07/18/24 07/19/24 07/20/24 07/21/24 23:59 23:59 23:59 23:59 Intake Total 2039 / 2039 Output Total 375 / 375 Balance 1665 / 1665 Weight 41.73 kg 43.59 kg Constitutional Constitutional: no acute distress and cachectic *Routine HEENT Exam Head: Present normocephalic Eye: Present EOMI and PERRL ENT: Present mucous membranes moist *Routine Neck Exam Neck: Present supple; Absent lymphadenopathy *Routine Respiratory Exam Respiratory: Present CTA bilaterally *Routine Cardiovascular Exam Cardiovascular: Present RRR *Routine Abdominal Exam Abdominal: Present soft and normoactive bowel sounds; Absent tenderness *Routine Extremities Exam Extremities: Absent cyanosis, clubbing or edema *Routine Skin Exam Skin: Present warm; Absent rash *Routine Neurological Exam Neurological: Present alert and oriented X3 Assessment and Plan *Assessment and plan (1) Left displaced femoral neck fracture: Problem Comment: s/p L hemiarthroplasty with Dr. Cantrell on 07/21/24 Status: Acute Category: Medical Code(s): S72.002A - Fracture of unspecified part of neck of left femur, initial encounter for closed fracture Plan Gia Farley is a 73-year-old female who presented with a fall and admitted for left hip fracture s/p hemiarthroplasty. #Left hip fracture s/p hemiarthroplasty #Recurrent falls ? Orthopedic surgery consulted, s/p left hemiarthroplasty 07/21/2024. Patient tolerated procedure well. ? Will follow-up with orthopedic surgery regarding weightbearing status. ? PT/OT consulted, pending recommendations. Will need SNF placement. ? Pain control with [place], Dilaudid as needed. ? DVT prophylaxis with Lovenox 40 mg. #Severe protein calorie malnutrition ? Nutrition following, providing nutritional counseling and supplements. #Anxiety/depression ? Resume home gabapentin, hydroxyzine, mirtazapine. Full code DVT prophylaxis: Lovenox 40 mg
[2024-07-22] VITALS (7 sets, daily range): BP systolic 116–174; BP diastolic 55–88; PULSE 83–106; RESP 12–18; TEMP 36.4–37.1; O2SAT 90–98; BMI 20.2
[2024-07-22] MEDS: HYDROCODONE/APAP 5/325 MG TABLET 1 TAB PO (00:09)
[2024-07-22] MEDS: ONDANSETRON 4MG/2ML VIAL 4 MG IV (01:05)
--- NOTE | 2024-07-22 05:36 | PC.NURSE ---
Pt is A/O X 4. 02 sats above 90 with 02 on at 2 liters/nc. Early in the shift, pt complaining of pain to hip not relieved by [place] or Dilaudid. Daughter asking for pt to have her regular meds including her gabapentin and her anxiety meds. Call placed to [employer]NATIONAL S[employer]CING MANAGER who in turn ordered Remeron, Gabapentin and Hydroxyzine. In addition, pt medicated with [place] X 2 and zofran X 1 this shift after complaints of pain and nausea. Pt then became comfortable and was able to rest the remainder of the shift. Harris cath patent to BSD, draining adeq amounts of urine.
[2024-07-22] MEDS: 0.9 % SODIUM CHLORIDE 1000ML 1,000 ML 75 ML IV (05:52)
[2024-07-22 07:11] LABS: Basophils % 0.4 % (0.1-2.0); Eosinophils % 0.2 % (0.1-12.0); Hematocrit 35.7 % (37.0-47.0); Hemoglobin 11.9 g/dL (12.2-16.2); Lymphocytes # 0.8 K/mm3 (0.7-4.5); Mean Corpuscular HGB Conc 33.3 g/dL (31.8-35.4); Mean Corpuscular Hemoglobin 31.8 pg (27.0-31.2); Mean Corpuscular Volume 95.5 fl (81-99); Mean Platelet Volume 10.7 fl (7.4-10.4); Monocytes # 0.8 K/mm3 (0.1-1.0); Monocytes % 9.2 % (1.7-9.3); Neutrophils # 6.8 K/mm3 (1.8-7.8); Neutrophils % 80.8 % (37.0-80.0); Platelet Count 177 K/mm3 (142-424); Red Blood Count 3.74 M/mm3 (4.20-5.40); Red Cell Distribution Width 12.9 % (11.5-17.5); White Blood Count 8.4 K/mm3 (4.8-10.8)
[2024-07-22 07:12] LABS: Chloride 103 mmol/L (98-107); Potassium 3.6 mmoL/L (3.5-5.1); Sodium 134 mmol/L (136-145)
[2024-07-22 07:15] LABS: Anion Gap 5.6 mEq/L (5-15); Blood Urea Nitrogen 6 mg/dl (7-17); Carbon Dioxide 29 mmol/L (22.0-30.0); Creatinine Clearance Estimated 38 mL/min (50-200); Estimated Glomerular Filt Rate 157 ml/min (>60); GFR (African American) 190 ML/MIN (>60)
[2024-07-22 07:16] LABS: Calcium 8.2 mg/dl (8.4-10.2); Glucose 108 mg/dl (74-100)
--- NOTE | 2024-07-22 07:27 | EXP.ANES.II ---
[facility] Anesthesia Record Part II Anesthesia Record Part II Discharge Time: 15:20 Destination: [facility] Day [facility] (OP Surgery) PACU nurse assessment reviewed?: Yes Patient Condition:: Good Anesthesia Complications:: None Swallowing reflex intact?: Yes Airway Patency: Patent Cyanosis?: No Blood Pressure: 144/73 SaO2: 98 Respiratory Rate: 12 Pulse Rate: 83 Temperature: 98.6 F Mental Status: Alert & Oriented Pain level:: 0 Nausea and/or vomitting:: None Intake, IV Amount: 0 Hydration: Adequate
[2024-07-22] MEDS: ENOXAPARIN 40MG/0.4ML SYRINGE 40 MG SUBCUT (08:28)
[2024-07-22] MEDS: GABAPENTIN 300MG CAPSULE 300 MG PO (08:28)
[2024-07-22] MEDS: HYDROCODONE 10MG/APAP 325MG TAB 1 TAB PO ×2 (08:29→15:21)
--- NOTE | 2024-07-22 09:08 | P.PN_ITS ---
<Statement entered by Miky Cantrell, - 07/22/24 16:25> I discussed the case with the PARhiannonC and agree with the findings and plan as documented in the final note. Subjective *Date: 07/22/24 *Time: 09:08 Interval history: Patient sitting in bed comfortably, eating breakfast. Denies, BANKS, dizziness, CP, SOB, calf pain, paresthesias. States pain is a 5-6/10 at the moment, but pain medications help immensely. + boyer in place. Ortho Exam (Inpt) Vital signs and Labs for Last 24 Hours: Temp Pulse Resp BP Pulse Ox O2 Del Method O2 Flow Rate 98.4 F 99 H 16 146/66 H 96 Room Air 1 07/22/24 08:00 07/22/24 08:00 07/22/24 08:00 07/22/24 08:00 07/22/24 08:00 07/22/24 08:00 07/22/24 08:00 Laboratory Results - last 24 hr 07/22/24 05:37: WBC 8.4 D, RBC 3.74 L, Hgb 11.9 L, Hct 35.7 L, MCV 95.5, MCH 31.8 H, MCHC 33.3, RDW 12.9, Plt Count 177, MPV 10.7 H, Neut % (Auto) 80.8 H, Lymph % (Auto) 9.0 L, [place] % (Auto) 9.2, Eos % (Auto) 0.2, Baso % (Auto) 0.4, Neut # (Auto) 6.8, Lymph # (Auto) 0.8, [place] # (Auto) 0.8, Eos # (Auto) 0.0, Baso # (Auto) 0.0, Sodium 134 L, Potassium 3.6, Chloride 103, Carbon Dioxide 29, Anion Gap 5.6, BUN 6 L D, Creatinine 0.40 L, Estimated Creat Clear 38, Estimated GFR 157, Est GFR ( Amer) 190, Glucose 108 H, Calcium 8.2 L I & O for Labs for Last 24 Hours: Intake & Output 07/19/24 07/20/24 07/21/24 07/22/24 23:59 23:59 23:59 23:59 Intake Total 2039 / 2039 0 / 0 Output Total 375 / 375 1400 / 1400 Balance 1665 / 1665 -1400 / -1400 Weight 41.73 kg 43.59 kg 46.72 kg Additional findings:: L hip: Dressing C/D/I. SILT 1st DWS/PA. +GS/TA, EHL/FHL diminished at baseline due to hammer toe. +2 DP equal b/l. Calves and thigh SNT. + boyer in place. Assessment and Plan *Assessment and plan (1) Left displaced femoral neck fracture: Problem Comment: s/p L hemiarthroplasty with Dr. Cantrell on 07/21/24 Status: Acute Category: Medical Code(s): S72.002A - Fracture of unspecified part of neck of left femur, initial encounter for closed fracture Plan Weightbearing as tolerated to LLE . Ambulate with a rolling walker or other devices as needed. DVT ppx: Lovenox 40mg SQ daily, continue DVT ppx for total of 28 days. Ice as needed swelling and pain at incision site. Pain medication as needed. Hgb/Hct: 11.9/35.7. Monitor with daily labs. Appreciate medical input on non-orthopedic issues. Discharge planning per PT recommendations. F/u 08/03- for post-op wound check in clinic.
--- NOTE | 2024-07-22 10:22 | HMH.PTEV ---
Physical Therapy Evaluation Rehab PT IP Evaluation Start: 07/22/24 07:49 Freq: ONCE Status: Active Protocol: Document 07/22/24 10:16 MAXIMILIAN (Rec: 07/22/24 10:21 PHORNE [id number]) Subjective/History History History 73-year-old female with a past medical history significant for neuropathy, COPD, cataracts, and depression presents with a chief complaint of left hip pain. Due to patient's symptoms, she was transitioned to the emergency room via EMS for evaluation. While in emergency room, CT scan of the hip revealed an impacted mildly displaced fracture of the sub-capital left femoral neck, cortical and trabecular irregularity in the medial right superior pubic rami and pubic tubercle suspicious for nondisplaced fracture which is possibly subacute. She reports she stays with family, 1-2 LEANDER the home, and ois generally independent with all mobility without AD at baseline. , Subjective Subjective Pt reports expected post-op soreness and general weakness. Agrees to OOB mobility assessment this am. Rehab PT IP Eval Objective Appearance Patient Behavior Appropriate Patient Orientation Person,Place,Time Difficulty following instructions none Speech Pattern Clear Ambulation Patient Able to Ambulate No Balance Ability to Arise Able, uses arms to help Sitting Balance Steady, safe Standing Balance Unsteady Dynamic Sitting Balance Ability Good Dynamic Standing Balance Ability Poor Transfers Bed Transfer Ability Moderate x 1 (50% assist) Chair Transfer Ability Moderate x 1 (50% assist) Sit to Stand Bed Transfer Ability Moderate x 1 (50% assist) Sit to Stand Chair Transfer Ability Moderate x 1 (50% assist) MMT LLE PT MMT ABN Abnormal MMT Grade Hip and knee grossly 2/5 Rehab PT IP prob,goals,plan Problems Date of Evaluation: 07/22/24 PT IP Problems Bed Mobility,Transfers,Gait Rehab Potential Rehab Potential Good Plan PT Intervention Plan Bed Mobility,Transfers,Gait, Therapeutic Exercise PT Plan Frequency BID Duration LOS Discharge Goals Bed Transfer Ability Minimal x 1 (25% assist) Sit to Stand Chair Transfer Ability Minimal x 1 (25% assist) Ambulation Assistive Device Rolling Walker Ambulation Distance (feet) 10 Discharge Plan PT Discharge Plan Pt is currently most appropriate for rehab placement once medically stable for d/c due to significant reduction in overall mobility after L hip fx requiring surgical intervention. Skilled therapy is indicated to improve transfers, improve ambulation, and increase strength in order to return pt to PLOF. Eval Complexity Eval Charge Codes 00471 - High Complexity PHYSICIAN CERTIFICATION: I certify the specified therapy services for Gia Farley are required, authorized, and reviewed every 30 days.
--- NOTE | 2024-07-22 10:29 | SW/DCPLANNER ---
Addendum entered by Elli Downs 07/23/24 09:11: Sherron verified she can accept this patient SNF level of care today. Addendum entered by [facility] 07/23/24 08:25: Sherron w/ [facility] can accept this patient SNF level of care pending insurance verification. I am just waiting to hear back from Sher[facility] at this time. Addendum entered by [facility] 07/22/24 10:43: [facility] stated no beds available at this time. Information faxed to Sherron w/ [facility]. Original Note: I spoke w/ this patient and her daughter regarding plans once medically stable for discharge. PT/OT evaluated patient and recommended SNF level of care. Patient is agreeable to placement at this time and does not have a facility preference. Daughter requested that information be faxed to [facility] or [facility]. I will fax information to both facilities this AM and continue to follow up. Discharge date is unknown at this time.
--- NOTE | 2024-07-22 11:44 | HMH.OTEV ---
OT Inpatient Evaluation Rehab OT IP Evaluation Start: 07/22/24 07:49 Freq: ONCE Status: Active Protocol: Document 07/22/24 11:12 MIGUELITOKIARA (Rec: 07/22/24 11:44 ASHLEYARPIT [id number]) Rehab OT IP Assessment Subjective History This is a 73-year-old female with a past medical history significant for neuropathy, COPD, cataracts, and depression presents with a chief complaint of left hip pain. Due to patient's symptoms, she was transitioned to the emergency room via EMS for evaluation. While in emergency room, CT scan of the hip revealed an impacted mildly displaced fracture of the subcapital left femoral neck, cortical and trabecular irregularity in the medial right superior pubic rami and pubic tubercle suspicious for nondisplaced fracture which is possibly subacute. Due to these findings, patient has been admitted for further management. During my evaluation of patient, patient states she tripped over her dog leash. Post fall she had pain to her left hip. She was unable to bear weight post fall. Prior to the fall, patient states that she was able to tolerate walking to and from her mailbox without any shortness of breath, she states she can ascend stairs without any shortness of breath, and she can lift at least 10 pounds. This is a METS of at least 4. She is currently denying any syncope, near syncope, chest pain, shortness of breath, lightheadedness, dizziness, fever, chills, rigors, nausea, vomiting, or diarrhea. Additional workup in emergency room was nonrevealing. Patient is s/p L jordyn arthoplasty. WBAT. Lives with daughter and boyfriend. 1 level home with 1-2 LEANDER. Will use RW/cane if needed. Independent with ADLs and fx'l mobility prior to the fall. Subjective I need help getting up. Instructed Patient on proper hand and foot placement to complete bed mobility from supine->sit @ EOB requiring Max A. Patient demonstrated good dynamic sitting balance at EOB with SBA. Instructed Patient on SPT from EOB-> recliner with usage of RW requiring Min A. Left patient sitting upright in chair with needs met. Objective Patient Orientation Person,Place,Name,Age,Birthday Right Upper Extremity Gross ROM WFL Left Upper Extremity Gross ROM WFL Bed Mobility bed mobility - supine/sit Assist Level Minimal x 1 (25% assist) Transfer Training Sit/Stand/Pivot Transfer Assist Level Minimal x 1 (25% assist) Rehab OT IP prob,goals,plan Problems Date of Evaluation: 07/22/24 OT IP Problems Bed Mobility,Transfers,Balance ,Self care,Safety Rehab Potential Rehab Potential Good Equipment Needs Assistive Devices Rolling / Wheeled Walker Plan OT intervention Plan Bed Mobility,Transfers,Balance ,Self care,Safety,Therapeutic Exercise OT Plan Frequency Daily Duration LOS Discharge Goals Bed Mobility Ability Assistance x1 Sit to Stand Chair Transfer Ability Minimal x 1 (25% assist) Chair Transfer Ability Minimal x 1 (25% assist) Chair Transfer Assistive Devices Rolling Walker Discharge Plan OT Discharge Plan Recommend placement for patient at this time prior to returning home. Patient will require 24/7 care at this time for ADLs and fx'l mobility. Patient to continue skilled OT Services while here at [facility] to plan for proper d/c. Eval Complexity Eval Charge Codes 38993 - Low Complexity PHYSICIAN CERTIFICATION: I certify the specified therapy services for Gia Farley are required, authorized, and reviewed every 30 days.
--- NOTE | 2024-07-22 14:15 | EXP.PN ---
Subjective *Date: 07/22/24 *Time: 14:15 Exam Data for Last 24 hours Vital signs and Labs for Last 24 Hours: Temp Pulse Resp BP Pulse Ox O2 Del Method O2 Flow Rate 98.7 F 90 18 116/63 91 L Room Air 1 07/22/24 11:55 07/22/24 11:55 07/22/24 11:55 07/22/24 11:55 07/22/24 11:55 07/22/24 11:55 07/22/24 09:00 Laboratory Results - last 24 hr 07/22/24 05:37: WBC 8.4 D, RBC 3.74 L, Hgb 11.9 L, Hct 35.7 L, MCV 95.5, MCH 31.8 H, MCHC 33.3, RDW 12.9, Plt Count 177, MPV 10.7 H, Neut % (Auto) 80.8 H, Lymph % (Auto) 9.0 L, [place] % (Auto) 9.2, Eos % (Auto) 0.2, Baso % (Auto) 0.4, Neut # (Auto) 6.8, Lymph # (Auto) 0.8, [place] # (Auto) 0.8, Eos # (Auto) 0.0, Baso # (Auto) 0.0, Sodium 134 L, Potassium 3.6, Chloride 103, Carbon Dioxide 29, Anion Gap 5.6, BUN 6 L D, Creatinine 0.40 L, Estimated Creat Clear 38, Estimated GFR 157, Est GFR ( Amer) 190, Glucose 108 H, Calcium 8.2 L I & O for Last 24 hours: Intake & Output 07/19/24 07/20/24 07/21/24 07/22/24 23:59 23:59 23:59 23:59 Intake Total 2039 / 2039 360 / 360 Output Total 375 / 375 1400 / 1400 Balance 1665 / 1665 -1040 / -1040 Weight 41.73 kg 43.59 kg 46.72 kg Assessment and Plan *Assessment and plan (1) Left displaced femoral neck fracture: Problem Comment: s/p L hemiarthroplasty with Dr. Cantrell on 07/21/24 Status: Acute Category: Medical Code(s): S72.002A - Fracture of unspecified part of neck of left femur, initial encounter for closed fracture Plan Gia Farley is a 73-year-old female who presented with a fall and admitted for left hip fracture s/p hemiarthroplasty. #Left hip fracture s/p hemiarthroplasty #Recurrent falls ? Orthopedic surgery consulted, s/p left hemiarthroplasty 07/21/2024. Patient tolerated procedure well. ? Orthopedic surgery following, recommend weightbearing as tolerated. ? Hemoglobin 11.9, vital signs stable. ? PT/OT consulted, recommended SNF. Case management assisting with placement. ? Pain control with [place], Dilaudid as needed. ? DVT prophylaxis with Lovenox 40 mg. #Severe protein calorie malnutrition ? Nutrition following, providing nutritional counseling and supplements. #Anxiety/depression ? Resume home gabapentin, hydroxyzine, mirtazapine. Full code DVT prophylaxis: Lovenox 40 mg
[2024-07-22] MEDS: MULTIVITAMIN TABLET 1 EACH PO (17:28)
--- NOTE | 2024-07-22 18:48 | PC.NURSE ---
patient is a/ox4. patient was on room air for majority of the shift with o2 sats 90%-91%. placed back on 1LNC at 1830. patient has c/o pain twice this shift, treated per AUG. she ambulated with PT in room with a walker, patient tolerated well. she states she is feeling better today. boyer d/c at 1400, patient has voided per paula since. patient has been up to the chairs multiple times today. family at bedside, call light within reach.
[2024-07-22] MEDS: hydrOXYzine pamoate 25MG CAPSULE 25 MG PO (19:34)
[2024-07-22] MEDS: MIRTAZAPINE 15 MG TABLET 30 MG PO (19:45)
[2024-07-22] MEDS: GABAPENTIN 300MG CAPSULE 600 MG PO (19:46)
[2024-07-22] MEDS: SODIUM CHLORIDE 0.9% 10ML FLUSH SYRINGE 10 ML IV (19:52)
[2024-07-23] VITALS: BP 126/59; PULSE 102; RESP 16; TEMP 36.8; O2SAT 98
[2024-07-23] MEDS: HYDROCODONE 10MG/APAP 325MG TAB 1 TAB PO ×3 (00:41→14:22)
[2024-07-23 04:00] VITALS: BP 129/55; PULSE 80; RESP 17; TEMP 36.5; O2SAT 98; BMI 19.7
--- NOTE | 2024-07-23 05:34 | PC.NURSE ---
Pt. is alert and orientated x 4. Pt. on oxygen 1 Liter per N/C. Pt. has slept most of this shift. Pt. c/o left hip/upper thigh pain medicated per AUG. dressing to left lateral hip/thigh clean, dry, intact. VSS. Personal items and call berger in reach.
[2024-07-23 07:17] LABS: Chloride 102 mmol/L (98-107); Sodium 136 mmol/L (136-145)
[2024-07-23 07:18] LABS: Potassium 3.1 mmoL/L (3.5-5.1)
[2024-07-23 07:20] LABS: Blood Urea Nitrogen 6 mg/dl (7-17); Creatinine Clearance Estimated 37 mL/min (50-200); Estimated Glomerular Filt Rate 122 ml/min (>60); GFR (African American) 147 ML/MIN (>60)
[2024-07-23 07:21] LABS: Anion Gap 5.1 mEq/L (5-15); Calcium 8.3 mg/dl (8.4-10.2); Carbon Dioxide 32 mmol/L (22.0-30.0); Glucose 112 mg/dl (74-100)
--- NOTE | 2024-07-23 07:35 | EXP.ORTH.PN ---
Subjective *Date: 07/23/24 *Time: 10:48 Interval history: Patient lying in bed comfortably. Denies, BANKS, dizziness, CP, SOB, calf pain, paresthesias. States pain is a well-controlled at the moment, but pain medications help immensely. Ortho Exam (Inpt) Vital signs and Labs for Last 24 Hours: Temp Pulse Resp BP Pulse Ox O2 Del Method O2 Flow Rate 97.7 F 80 17 129/55 L 98 Nasal Cannula 1 07/23/24 04:00 07/23/24 04:00 07/23/24 04:00 07/23/24 04:00 07/23/24 04:00 07/23/24 06:55 07/23/24 06:55 Laboratory Results - last 24 hr 07/23/24 06:44: Sodium 136, Potassium 3.1 L, Chloride 102, BUN 6 L, Creatinine 0.50 L D, Estimated Creat Clear 37, Estimated GFR 122, Est GFR ( Amer) 147 D I & O for Labs for Last 24 Hours: Intake & Output 07/20/24 07/21/24 07/22/24 07/23/24 23:59 23:59 23:59 23:59 Intake Total 2040 / 2040 1080 / 1320 240 / 240 Output Total 375 / 375 1400 / 1400 450 / 450 Balance 1665 / 1665 -320 / -80 -210 / -210 Weight 41.73 kg 43.59 kg 46.72 kg 45.586 kg Additional findings:: L hip: Dressing C/D/I. SILT 1st DWS/PA. +GS/TA, EHL/FHL diminished at baseline due to hammer toe. +2 DP equal b/l. Calves and thigh SNT. Dressing subsequntly changed- mild serosang drainage on dressing, no active drainage. No erythema, signs of infection. Edges well approximated with alejandro. Replaced with DSDs, ABD, Tape. Assessment and Plan *Assessment and plan (1) Left displaced femoral neck fracture: Problem Comment: s/p L hemiarthroplasty with Dr. Cantrell on 07/21/24 Status: Acute Category: Medical Code(s): S72.002A - Fracture of unspecified part of neck of left femur, initial encounter for closed fracture Plan Weightbearing as tolerated to LLE . Ambulate with a rolling walker or other devices as needed. DVT ppx: Lovenox 40mg SQ daily, continue DVT ppx for total of 28 days. Ice as needed swelling and pain at incision site. Pain medication as needed. Hgb/Hct: 10.3/30.5, stable. Appreciate medical input on non-orthopedic issues. Discharge planning per PT recommendations. F/u 08/03- for post-op wound check in clinic. Recommend dressing changes daily or more often PRN drainage.
[2024-07-23 07:36] LABS: Basophils # 0.1 K/mm3 (0-0.2); Basophils % 0.6 % (0.1-2.0); Eosinophils # 0.2 K/mm3 (0.0-0.4); Eosinophils % 1.7 % (0.1-12.0); Hematocrit 30.5 % (37.0-47.0); Hemoglobin 10.3 g/dL (12.2-16.2); Lymphocytes # 1.2 K/mm3 (0.7-4.5); Lymphocytes % 10.4 % (10-50); Mean Corpuscular HGB Conc 33.8 g/dL (31.8-35.4); Mean Corpuscular Hemoglobin 31.2 pg (27.0-31.2); Mean Corpuscular Volume 92.4 fl (81-99); Mean Platelet Volume 10.2 fl (7.4-10.4); Monocytes # 1.1 K/mm3 (0.1-1.0); Monocytes % 8.9 % (1.7-9.3); Neutrophils # 9.3 K/mm3 (1.8-7.8); Neutrophils % 77.9 % (37.0-80.0); Platelet Count 168 K/mm3 (142-424); Red Cell Distribution Width 13.2 % (11.5-17.5); White Blood Count 11.9 K/mm3 (4.8-10.8)
[2024-07-23 07:48] VITALS: BP 152/67; PULSE 101; RESP 16; TEMP 37.1; O2SAT 96
[2024-07-23] MEDS: ENOXAPARIN 40MG/0.4ML SYRINGE 40 MG SUBCUT (08:31)
[2024-07-23] MEDS: GABAPENTIN 300MG CAPSULE 300 MG PO (08:31)
--- NOTE | 2024-07-23 10:24 | DIET.NUTRFU ---
Saw patient while she was eating her breakfast. Meal intake has been fair to good with 75% of dinner consumed. She has been drinking her strawberry homemade shakes for additional nutrition. She has not had BM since admit, she is s/p sx and has pain meds in place. May benefit from BM regimen. Will review with provider
[2024-07-23] MEDS: POLYETHYLENE GLYCOL 3350 17 GM PACKET PO (11:42)
[2024-07-23] MEDS: GLYCERIN ADULT 3GM SUPP 3 GM RC (11:42)
[2024-07-23] MEDS: HYDROMORPHONE 2MG/ML SYRINGE 1 MG IV (11:49)
[2024-07-23 12:00] VITALS: BP 122/63; PULSE 92; RESP 16; TEMP 36.8; O2SAT 97
[2024-07-23] MEDS: POTASSIUM CHLORIDE 20MEQ TAB 40 MEQ PO (12:36)
--- NOTE | 2024-07-23 12:43 | P.DS_ITS ---
General Admission date:: 07/20/24 HPI HPI HPI: This is a 73-year-old female with a past medical history significant for neuropathy, COPD, cataracts, and depression presents with a chief complaint of left hip pain. Due to patient's symptoms, she was transitioned to the emergency room via EMS for evaluation. While in emergency room, CT scan of the hip revealed an impacted mildly displaced fracture of the subcapital left fem oral neck, cortical and trabecular irregularity in the medial right superior pubic rami and pubic tubercle suspicious for nondisplaced fracture which is possibly subacute. Due to these findings, patient has been admitted for further management. During my evaluation of patient, patient states she tripped over her dog leash. Post fall she had pain to her left hip. She was unable to bear weight post fall. Prior to the fall, patient states that she was able to tolerate walking to and from her mailbox without any shortness of breath, she states she can ascend stairs without any shortness of breath, and she can lift at least 10 pounds. Orthopedics consulted regarding definitive treatment options for hip fracture Hospital Course Hospital Course Hospital Course: Gia Farley is a 73-year-old female who presented with a fall and admitted for left hip fracture s/p hemiarthroplasty. #Left hip fracture s/p hemiarthroplasty #Recurrent falls ? Orthopedic surgery consulted, s/p left hemiarthroplasty 07/21/2024. Patient tolerated procedure well. ? Orthopedic surgery following, recommend weightbearing as tolerated. ? PT/OT consulted, recommended SNF. [facility] grac[facility] accepted patient. ? Pain control with Percocet as needed. ? DVT prophylaxis ASA 81mg for 6 weeks. #Severe protein calorie malnutrition ? Nutrition following, provided nutritional counseling and supplements. Recommend mechanical soft, assisting with feeding, and supplemental shakes with meals. #Anxiety/depression ? Resume home gabapentin, hydroxyzine, mirtazapine. #Right ventricular dysfunction ? ECHO reveals severe RV dilatation, mildly reduced RV function. Currently stable from a cardiac standpoint. - Referred to pulmonology for further evaluation. May benefit from sleep study. Exam Data for Last 24 hours Vital signs and Labs for Last 24 Hours: Temp Pulse Resp BP Pulse Ox O2 Del Method O2 Flow Rate 98.2 F 92 H 16 122/63 97 Nasal Cannula 1 07/23/24 12:00 07/23/24 12:00 07/23/24 12:00 07/23/24 12:00 07/23/24 12:00 07/23/24 12:00 07/23/24 12:00 Laboratory Results - last 24 hr 07/23/24 06:44: WBC 11.9 H D, RBC 3.30 L, Hgb 10.3 L, Hct 30.5 L, MCV 92.4, MCH 31.2, MCHC 33.8, RDW 13.2, Plt Count 168, MPV 10.2, Neut % (Auto) 77.9, Lymph % (Auto) 10.4, [place] % (Auto) 8.9, Eos % (Auto) 1.7, Baso % (Auto) 0.6, Neut # (Auto) 9.3 H, Lymph # (Auto) 1.2, [place] # (Auto) 1.1 H, Eos # (Auto) 0.2, Baso # (Auto) 0.1, Sodium 136, Potassium 3.1 L, Chloride 102, Carbon Dioxide 32 H, Anion Gap 5.1, BUN 6 L, Creatinine 0.50 L D, Estimated Creat Clear 37, Estimated GFR 122, Est GFR ( Amer) 147 D, Glucose 112 H, Calcium 8.3 L I & O for Last 24 hours: Intake & Output 07/20/24 07/21/24 07/22/24 07/23/24 23:59 23:59 23:59 23:59 Intake Total 2040 / 2040 1080 / 1320 600 / 600 Output Total 375 / 375 1400 / 1400 450 / 450 Balance 1665 / 1665 -320 / -80 150 / 150 Weight 41.73 kg 43.59 kg 46.72 kg 45.586 kg Constitutional Constitutional: no acute distress and cachectic *Routine HEENT Exam Head: Present normocephalic Eye: Present EOMI and PERRL ENT: Present mucous membranes moist *Routine Neck Exam Neck: Present supple; Absent lymphadenopathy *Routine Respiratory Exam Respiratory: Present CTA bilaterally *Routine Cardiovascular Exam Cardiovascular: Present RRR *Routine Abdominal Exam Abdominal: Present soft and normoactive bowel sounds; Absent tenderness *Routine Extremities Exam Extremities: Absent cyanosis, clubbing or edema *Routine Skin Exam Skin: Present warm; Absent rash *Routine Neurological Exam Neurological: Present alert Results Data Completed and Pending Labs on day of discharge: Labs from last 24 hours 07/23/24 06:44 WBC 11.9 H D RBC 3.30 L Hgb 10.3 L Hct 30.5 L MCV 92.4 MCH 31.2 MCHC 33.8 RDW 13.2 Plt Count 168 MPV 10.2 Neut % (Auto) 77.9 Lymph % (Auto) 10.4 [place] % (Auto) 8.9 Eos % (Auto) 1.7 Baso % (Auto) 0.6 Neut # (Auto) 9.3 H Lymph # (Auto) 1.2 [place] # (Auto) 1.1 H Eos # (Auto) 0.2 Baso # (Auto) 0.1 Sodium 136 Potassium 3.1 L Chloride 102 Carbon Dioxide 32 H Anion Gap 5.1 BUN 6 L Creatinine 0.50 L D Estimated Creat Clear 37 Estimated GFR 122 Est GFR ( Amer) 147 D Glucose 112 H Calcium 8.3 L DS: Diagnosis Discharge Diagnosis (1) Left displaced femoral neck fracture: Status: Acute Code(s): S72.002A - Fracture of unspecified part of neck of left femur, initial encounter for closed fracture Problem details: s/p L hemiarthroplasty with Dr. Cantrell on 07/21/24 Meds Home Medications and Allergies Home Medications ?Medication ?Instructions ?Recorded ?Confirmed ?Type mirtazapine 15 mg tablet 30 mg PO HS 07/28/23 07/21/24 History multivitamin 1 tab PO DAILY 11/17/23 07/20/24 History hydroxyzine pamoate 25 mg capsule 25 mg PO Q6HP PRN Anxiety 05/18/24 07/21/24 History gabapentin 300 mg capsule 300 mg PO DAILY 07/20/24 07/21/24 History gabapentin 300 mg capsule 600 mg PO HS 07/21/24 07/21/24 History aspirin 81 mg capsule 81 mg PO BID 6 weeks #84 caps 07/23/24 Rx oxycodone-acetaminophen 5 mg-325 1 tab PO Q6H PRN pain 3 days #12 07/23/24 Rx mg tablet (Percocet) tabs New Prescriptions to Start Prescriptions: aspirin Ambrocio Saul oxycodone-acetaminophen [Percocet] Ambrocio Saul Allergies Allergy/AdvReac Type Severity Reaction Status Date / Time Sulfa (Sulfonamide Allergy Unknown Hives Verified 07/20/24 20:17 Antibiotics) codeine Allergy Hives Verified 07/20/24 20:17 Discharge Plan Disposition Patient Disposition: Xfer SNF Condition: Fair Discharge Order Discharge Orders: Discharge Order (Routine); Ordered 07/23/24 Ordered By: Ambrocio Saul Follow up Plan Follow up with: Maritza Hatfield PA [Physician Autographer] - 08/03/24 9:30 am (please arrive 30 minutes early for x-ray prior to appointment) Melissa Hatfield MD [Physician] - Enter time for follow up (Right ventricular dysfunction) Prescriptions/Medication Reconciliation: New aspirin 81 mg capsule 81 mg PO BID 42 Days Qty: 84 0RF oxycodone-acetaminophen [Percocet] 5-325 mg tablet 1 tab PO Q6H PRN (Reason: pain) 3 Days Qty: 12 0RF Continued multivitamin Tablet 1 tab PO DAILY mirtazapine 15 mg tablet 30 mg PO HS hydroxyzine pamoate 25 mg capsule 25 mg PO Q6HP PRN (Reason: Anxiety) gabapentin 300 mg capsule 300 mg PO DAILY gabapentin 300 mg capsule 600 mg PO HS Patient Comments: TAKE 1 CAPSULE BY MOUTH IN THE MORNING AND 2 CAPSULES AT BEDTIME Problem Reconciliation Problems Reviewed?: Yes Patient Discharge Instructions Patient Instructions: DI for Hip Fracture, DI for Surgical Site Infection Print Language: Tamazight Providers Primary Care Provider: Lawson Yarbrough Admit Provider: Ambrocio Saul Attending Provider: Ambrocio Saul
--- NOTE | 2024-07-23 14:40 | PC.NURSE ---
Report called to Rolanda pickard [facility]
== END 2024-07-23 14:59 | DRG 521 ==
LOC: ER 21:29 → 2ND 21:43
PROVIDERS: Nurse Practitioner Family; Orthopaedic Surgery; Admitting Provider Student in an Organized Health Care Education/Training Program; Emergency Provider Emergency Medicine; PCP Internal Medicine Adolescent Medicine; Visit Provider Student in an Organized Health Care Education/Training Program
PROC: 0SRB04A Replacement of Left Hip Joint with Ceramic on Polyethylene Synthetic Substitute, Uncemented, Open Approach (ICD-10-PCS; CPT 27125; principal; 2024-07-21 11:30)
DX: S72.012A Unspecified intracapsular fracture of left femur, initial encounter for closed fracture (principal); E43 Unspecified severe protein-calorie malnutrition; Z68.1 Body mass index [BMI] 19.9 or less, adult; W01.0XXA Fall on same level from slipping, tripping and stumbling without subsequent striking against object, initial encounter; R29.6 Repeated falls; J44.9 Chronic obstructive pulmonary disease, unspecified; Z79.899 Other long term (current) drug therapy; Z87.891 Personal history of nicotine dependence; Y93.89 Activity, other specified; Y92.019 Unspecified place in single-family (private) house as the place of occurrence of the external cause; I51.9 Heart disease, unspecified
CPT/HCPCS: 51702; 71045; 72131; 72170; 72192; 73700; 80048; 85025; 86803; 87389; 93005; 93306; 97116; 97163; 97165; 97530; 99285; C1776; J0690; J0780; J1171; J1650; J1885; J2405; J3010; J7030

== ENCOUNTER 2024-08-03 09:27 | Outpatient (CLI) | payer MEDICARE, SELFPAY ==
--- NOTE | 2024-08-03 09:32 | XR_ITS ---
FINAL REPORT TECHNIQUE: Left hip 4 views CLINICAL HISTORY: lt hip fx COMPARISON: 07/21/2024 FINDINGS: LEFT HIP: 4 views of the left hip reveals surgical changes of a partial arthroplasty. The hardware is intact. Osteopenia is present. There is no fracture identified. IMPRESSION: Unremarkable appearing postoperative left hip. Reviewed, Interpreted and Dictated by Babatunde August MD Transcribed by Esther To Authenticated and [facility]
== END 2024-08-03 23:59 | disposition home or self-care (01) ==
LOC: RAD 09:29
PROVIDERS: PCP Internal Medicine Adolescent Medicine; Visit Provider Physician Assistant Surgical
DX: M25.552 Pain in left hip (principal); S72.002A Fracture of unspecified part of neck of left femur, initial encounter for closed fracture
CPT/HCPCS: 73502

== ENCOUNTER 2024-09-07 14:07 | Outpatient (CLI) | payer MEDICARE, SELFPAY ==
--- NOTE | 2024-09-07 14:14 | XR_ITS ---
FINAL REPORT CLINICAL HISTORY: lt hip pain COMPARISON: 08/03/2024 FINDINGS: LEFT HIP 2 views of the left hip are obtained. There is no acute fracture or dislocation. There are surgical changes of partial arthroplasty of the left hip. Hardware is stable. IMPRESSION: No acute bony or hardware abnormality. Reviewed, Interpreted and Dictated by Babatunde August MD Transcribed by Kendy Barr Authenticated and [facility]
== END 2024-09-07 23:59 | disposition home or self-care (01) ==
LOC: RAD 14:09
PROVIDERS: PCP Internal Medicine Adolescent Medicine; Visit Provider Orthopaedic Surgery
DX: M25.552 Pain in left hip (principal); S72.002A Fracture of unspecified part of neck of left femur, initial encounter for closed fracture
CPT/HCPCS: 73502

== ENCOUNTER 2024-10-14 12:54 | Observation (INO) | payer MEDICARE, SELFPAY ==
[2024-10-14] VITALS (10 sets, daily range): BP systolic 122–152; BP diastolic 61–78; PULSE 64–93; RESP 17–18; TEMP 36.3–37.1; O2SAT 91–98; BMI 21.5; BMI 15.6; BMI 14.8
--- NOTE | 2024-10-14 13:02 | ECG_ITS ---
APPROVED REPORT Exam: Resting ECG HR:97 bpm ECG Measurements Heart Rate 97 AXES SD 157 P 83 QRSd 81 QRS -80 QT 348 T 81 QTc 403 Conclusion SINUS RHYTHM POSSIBLE RIGHT ATRIAL ENLARGEMENT [0.25mV P-WAVE] INDETERMINATE AXIS LEFT ANTERIOR FASCICULAR BLOCK [QRS AXIS <= -45, QR IN I, RS IN II] No STEMI Electronically signed by : KEYANNA SANDERS, 10/15/2024 09:55:08
--- NOTE | 2024-10-14 13:09 | XR_ITS ---
FINAL REPORT CLINICAL HISTORY: soa cp COMPARISON: 07/21/2024 FINDINGS: A portable view of the chest was obtained. Cardiac and mediastinal silhouettes are within normal limits. Note is made of emphysema. There is evidence of prior granulomatous disease. There is an irregular nodular density projecting over the anterior first rib. The lungs are otherwise clear. There is no pleural effusion or pneumothorax. IMPRESSION: Irregular nodular density projecting over the anterior first rib which could be summation of shadow at the first rib but nodule is not excluded. Consider CT. Reviewed, Interpreted and Dictated by Rochelle Gonzales MD Transcribed by Martine Saldivar Authenticated and [facility]
--- NOTE | 2024-10-14 13:11 | ED_ITS ---
<Statement entered by Lizet Camacho DO - 10/14/24 15:50> I was consulted by the CARY, and we discussed the complexity of the problems being addressed. I approved the treatment and management plan for this patient's care in the emergency department, thus performing a substantive portion of the medical decision making. Lizet Camacho DO Discharge Plan Disposition Patient Disposition: Admitted Condition: Good Clinical Impressions Clinical Impression: Pneumonia Discharge ED Provider: Lizet Camacho HPI <Jia Michaud APRN - Last Filed: 10/14/24 17:58> General Chief Complaint: Weakness Stated Complaint: SOB, Weakness -COPD Time Seen by Provider: 10/14/24 12:58 History of Present Illness HPI narrative: patient is a 74-year-old female PMHx COPD, tobacco abuse, chronic pain syndrome, who presents to the ED for complaints of shortness of breath that started yesterday. Patient does not wear oxygen at home. She states that on July 20 she fell, broke her hip requiring surgery and hospitalization, she was subsequently sent to a custodial for rehab. Related Data Home Medications ?Medication ?Instructions ?Recorded ?Confirmed mirtazapine 15 mg tablet 30 mg PO HS 07/28/23 10/14/24 multivitamin 1 tab PO DAILY 11/17/23 10/14/24 gabapentin 300 mg capsule 300 mg PO DAILY 07/20/24 10/14/24 gabapentin 300 mg capsule 600 mg PO HS 07/21/24 10/14/24 buspirone 5 mg tablet 5 mg PO HS 10/14/24 10/14/24 Allergies Allergy/AdvReac Type Severity Reaction Status Date / Time Sulfa (Sulfonamide Allergy Unknown Hives Verified 09/07/24 15:06 Antibiotics) [facility] <Jia Michaud APRN - Last Filed: 10/14/24 17:58> [facility] Disclaimer: The information contained in this section may have been updated after the patient was seen, as this information can be updated by other users. Medical History Neuropathy Abnormal CT of the chest COPD (chronic obstructive pulmonary disease) Large bullae/bleb right apex. No evidence of malignancy History of cataract Depression Surgical History History of surgery on wrist Family History Other Cancer Social History Smoking Status: Never smoker smoking status start date: 40 yrs ago alcohol intake: never substance use type: denies use current occupational status: retired Travel in the last 8 weeks?: None household members: family housing: house marital status: single number of children: 1 Have you lived/traveled outside US in past 30 days?: No Contact w/someone who lives/traveled outside US past 30 days?: No Exposure to someone with infectious disease in past 14 days?: No Do you have a fever (greater than 100.4 F or 38 C)?: No Have you tested positive for COVID-19?: No Exposed to someone with COVID-19 in past 14 days?: No Do you have a sore throat?: No Do you have a cough?: No Do you have any weakness?: Yes Do you have any diarrhea?: No Are you experiencing any unusual bleeding?: No Do you have any muscle aches/pain?: No Do you have any abdominal pain?: No Are you experiencing loss of taste or smell?: No Other Medical History Have you received the Flu Vaccine for this season: No Have you received the Pneumonia Vaccine: No <Jia Michaud APRN - Last Filed: 10/14/24 17:58> ROS Obtained: Yes Systems reviewed as appropriate & no additional complaints except as documented Physical Exam <Jia Michaud APRN - Last Filed: 10/14/24 17:58> General General appearance: alert and anxious Head Head exam: atraumatic and normocephalic Eye Eye exam: Present normal appearance and PERRL; Absent nystagmus ENT ENT exam: Present normal exam Neck Neck exam: Present normal inspection and full ROM Chest Chest inspection: Present normal inspection and symmetric chest wall rise Respiratory Respiratory exam: Present respiratory distress and other (decreased ) Cardiovascular Cardiovascular exam: Present regular rate Abdominal Exam Abdominal exam: Present soft and normal bowel sounds; Absent distention or tenderness Extremities Exam Extremities exam: Present normal inspection and full ROM Back Exam Back exam: Present normal inspection and full ROM; Absent tenderness Neurological Exam Neurological exam: Present alert and oriented X3 Psychiatric Psychiatric exam: Present normal affect and normal mood Skin Skin exam: Present warm and dry HEART Score <Jia Michaud APRN - Last Filed: 10/14/24 17:58> HEART Score HEART Score assessment performed?: Yes History (anamnesis): Slightly suspicious ECG: Normal Age: >65 years Risk factors: 1-2 risk factors Troponin: </= normal limit HEART Score: 3 Critical Care <Jia Michaud APRN - Last Filed: 10/14/24 17:58> Critical Care Time Critical Care Time: No Medical Decision Making <Jia Michaud APRN - Last Filed: 10/14/24 17:58> Bryson Inquiry Pt receiving controlled substance: No Vital Signs Vital Signs: 10/14/24 13:09 10/14/24 13:30 10/14/24 14:00 Temperature 98.7 F Temperature Source Oral Pulse Rate 87 91 H Pulse Rate [Left Radial] 82 Respiratory Rate 17 Blood Pressure 146/76 H 148/75 H Blood Pressure [Right Arm] 134/74 Blood Pressure Mean [Right Arm] 94 Blood Pressure Source Blood Pressure Source [Right Arm] Automatic Cuff Blood Pressure Position Blood Pressure Position [Right Arm] Sitting 02 Sat by Pulse Oximetry 95 97 96 Oxygen Delivery Method Room Air 10/14/24 15:00 10/14/24 15:30 10/14/24 16:30 Temperature Temperature Source Pulse Rate 87 88 88 Pulse Rate [Left Radial] Respiratory Rate Blood Pressure 143/67 H 141/65 H 152/78 H Blood Pressure [Right Arm] Blood Pressure Mean [Right Arm] Blood Pressure Source Blood Pressure Source [Right Arm] Blood Pressure Position Blood Pressure Position [Right Arm] 02 Sat by Pulse Oximetry 97 96 98 Oxygen Delivery Method 10/14/24 16:54 Temperature 98.6 F Temperature Source Oral Pulse Rate 88 Pulse Rate [Left Radial] Respiratory Rate 18 Blood Pressure 152/78 H Blood Pressure [Right Arm] Blood Pressure Mean [Right Arm] Blood Pressure Source Automatic Cuff Blood Pressure Source [Right Arm] Blood Pressure Position Supine Blood Pressure Position [Right Arm] 02 Sat by Pulse Oximetry Oxygen Delivery Method Room Air Lab Data Labs: Lab Results 10/14/24 13:09: VBG pH 7.43 H, VBG pCO2 40.9, VBG pO2 61.8 H, VBG HCO3 26.4, VBG Total CO2 27.7 H, VBG O2 Saturation 92.1 H, VBG Base Excess 2.1, VBG Lactic Acid 2.1 H 10/14/24 13:13: WBC 7.0, RBC 4.29, Hgb 13.5, Hct 40.1, MCV 93.5, MCH 31.5 H, MCHC 33.7, RDW 13.0, Plt Count 344, MPV 9.4, Neut % (Auto) 76.8, Lymph % (Auto) 15.2, Oliver % (Auto) 6.4, Eos % (Auto) 0.4, Baso % (Auto) 1.1, Neut # (Auto) 5.4, Lymph # (Auto) 1.1, Oliver # (Auto) 0.5, Eos # (Auto) 0.0, Baso # (Auto) 0.1, D- Dimer 0.81 H, Sodium 138, Potassium 3.8, Chloride 106, Carbon Dioxide 28, Anion Gap 7.8, BUN 14, Creatinine 0.40 L, Estimated Creat Clear 38, Estimated GFR 157, Est GFR ( Amer) 190, Glucose 115 H, Calcium 10.0, Total Bilirubin 0.5, AST 32, ALT 23, Alkaline Phosphatase 63, Troponin I < 0.01, Total Protein 7.1, Albumin 4.6, Globulin 2.5, Albumin/Globulin Ratio 1.8 10/14/24 13:13 10/14/24 13:13 Response Orders (Tests/Meds): ED MEDICATIONS Generic Name Dose Route Start Last Admin Trade Name Freq PRN Reason Stop Dose Admin Acetaminophen 650 mg 10/14/24 16:37 Acetaminophen 325mg Tab PO 11/13/24 16:36 Q4HP PRN Fever or Mild Pain (1-3) Enoxaparin Sodium 40 mg 10/15/24 09:00 Enoxaparin 40mg/0.4ml Syringe SUBCUT 11/14/24 08:59 DAILY JAMESON Azithromycin 500 mg/ Sodium 250 mls @ 250 mls/hr 10/14/24 16:45 Chloride IV 10/24/24 16:44 Q24H JAMESON Ondansetron HCl 4 mg 10/14/24 16:37 Ondansetron 4mg/2ml Vial IV 11/13/24 16:36 Q8HP PRN Nausea Discontinued Medications Generic Name Dose Route Start Last Admin Trade Name Freq PRN Reason Stop Dose Admin Albuterol/Ipratropium 3 ml 10/14/24 13:09 10/14/24 13:22 Ipratropium/Albuterol 3 Ml Neb IH 10/14/24 13:10 3 ml ONCE ONE Administration Gabapentin 300 mg 10/14/24 13:09 10/14/24 13:14 Gabapentin 300mg Capsule PO 10/14/24 13:10 300 mg ONCE ONE Administration Ceftriaxone Sodium 1 gm/ 50 mls @ 100 mls/hr 10/14/24 16:35 10/14/24 17:27 Sodium Chloride IV 10/14/24 17:04 100 mls/hr Q24H ONE Administration Iopamidol 70 ml 10/14/24 14:38 10/14/24 14:40 Iopamidol-370 (76%);100ml Bottle IV 10/14/24 14:39 70 ml ONCE ONE Administration Methocarbamol 500 mg 10/14/24 15:25 10/14/24 15:57 Methocarbamol 500mg Tablet PO 10/14/24 15:26 500 mg ONCE ONE Administration Sodium Chloride 50 ml 10/14/24 14:38 10/14/24 14:40 0.9 % Sodium Chloride 50 Ml Vial IV 10/14/24 14:39 50 ml ONCE ONE Administration Sodium Chloride 10 ml 10/14/24 14:38 10/14/24 14:40 Sodium Chloride 0.9% 10ml Syr (Rad Only) IV 10/14/24 14:39 10 ml ONCE ONE Administration ORDERS Category Date Time Status CT angio chest PE protocol Stat Cat Scan 10/14/24 14:17 Completed CXR --portable [XR chest portable] Stat Exams 10/14/24 13:09 Completed CBC w/Auto Diff [Complete Blood Count Auto Diff] Stat Lab 10/14/24 13:13 Completed CMP [Comprehensive Metabolic Panel] Stat Lab 10/14/24 13:13 Completed Complete Blood Count Auto Diff AMLAB Lab 10/15/24 06:00 Ordered Complete Blood Count Auto Diff AMLAB Lab 10/16/24 06:00 Ordered Complete Blood Count Auto Diff AMLAB Lab 10/17/24 06:00 Ordered Complete Blood Count Auto Diff AMLAB Lab 10/18/24 06:00 Ordered Complete Blood Count Auto Diff AMLAB Lab 10/19/24 06:00 Ordered Comprehensive Metabolic Panel AMLAB Lab 10/15/24 06:00 Ordered Comprehensive Metabolic Panel AMLAB Lab 10/16/24 06:00 Ordered Comprehensive Metabolic Panel AMLAB Lab 10/17/24 06:00 Ordered Comprehensive Metabolic Panel AMLAB Lab 10/18/24 06:00 Ordered Comprehensive Metabolic Panel AMLAB Lab 10/19/24 06:00 Ordered D-Dimer Stat Lab 10/14/24 13:13 Completed Lipid Panel AMLAB Lab 10/15/24 06:00 Ordered Magnesium AMLAB Lab 10/15/24 06:00 Ordered Magnesium AMLAB Lab 10/16/24 06:00 Ordered Magnesium AMLAB Lab 10/17/24 06:00 Ordered Magnesium AMLAB Lab 10/18/24 06:00 Ordered Magnesium AMLAB Lab 10/19/24 06:00 Ordered Trop I [Troponin I] Stat Lab 10/14/24 13:13 Completed Troponin I Q3H Lab 10/14/24 16:34 Received Troponin I Q3H Lab 10/14/24 19:15 Ordered Blood Culture Stat Micro 10/14/24 17:00 Ordered VBG [Venous Blood Gas] Stat RT 10/14/24 13:09 Completed MDM Narrative Medical Decision Narrative: In summary, patient is a 74-year-old female PMHx COPD, tobacco abuse, chronic pain syndrome, who presents to the ED for complaints of shortness of breath that started yesterday. Patient does not wear oxygen at home. She states that on July 20 she fell, broke her hip requiring surgery and hospitalization, she was subsequently sent to a custodial for rehab. She states that since she has been home she has had difficulty caring for herself. She takes gabapentin twice daily however her prescription ran out yesterday. She is requesting her dose today. Patient states that she is having shortness of breath, no chest pain at this time. Denies fever, body aches, chills, headache, visual disturbances, posterior neck pain, abdominal pain, nausea, vomiting, dysuria. Denies history of blood clot. Upon initial evaluation patient is alert, oriented and cooperative. She is tachypneic. She appears anxious. Bilateral decreased breath sounds. Patient appears cachectic. Differential diagnosis includes ACS, pulmonary embolism, COPD exacerbation, dissection, infectious process, electrolyte abnormality, chronic pain, among others. Discussed with patient that we will order hematologic labs, imaging and administer daily dose of gabapentin 300 mg capsule with DuoNeb treatment. CBC unremarkable for any leukocytosis, stable H&H. CMP unremarkable for any actionable abnormalities. VBG pH 7.43, CO2 27.7, lactic acid 2.1. Dimer 0.81, will proceed with CT angio. Final read of the chest x-ray remarkable for irregular nodule density projecting over the anterior first rib which could be summation of the shadow of the first rib but nodule not excluded Ordered social work evaluation and PT OT evaluation. Patient refused evaluation, refuses home health and refuses rehab. I discussed with patient that due to her statements of being unable to care for herself at her home, I am unsure of how to proceed without her agreeing to an evaluation for home health or PT OT. Patient is now agreeable to be evaluated. We called school social worker, PT and OT back to evaluate patient again at this time. CT final read unremarkable for any pulmonary embolism or dissection. It is noted that there is a right lower lobe airspace disease concerning for developing pneumonia. She has age-indeterminate compression fractures and T6, L1 and L2. Age-indeterminate compression fractures noted on CT scan from July. PT and OT notes that they are recommending placement for this patient upon discharge as the patient is unfit for safe discharge home because she is requiring assistance of 2 people for all transfers currently. I discussed with patient need for admission. Discussed with her and her sister, she is agreeable to admission at this time. Discussed that we will treat pneumonia with ceftriaxone and azithromycin. Curb 65 score 1, however needs placement so will be admitted anyways for <Lizet Camacho, DO - Last Filed: 10/14/24 15:11> Vital Signs Vital Signs: 10/14/24 13:09 10/14/24 13:30 10/14/24 14:00 Temperature 98.7 F Temperature Source Oral Pulse Rate 87 91 H Pulse Rate [Left Radial] 82 Respiratory Rate 17 Blood Pressure 146/76 H 148/75 H Blood Pressure [Right Arm] 134/74 Blood Pressure Mean [Right Arm] 94 Blood Pressure Source Blood Pressure Source [Right Arm] Automatic Cuff Blood Pressure Position Blood Pressure Position [Right Arm] Sitting 02 Sat by Pulse Oximetry 95 97 96 Oxygen Delivery Method Room Air 10/14/24 15:00 10/14/24 15:30 10/14/24 16:30 Temperature Temperature Source Pulse Rate 87 88 88 Pulse Rate [Left Radial] Respiratory Rate Blood Pressure 143/67 H 141/65 H 152/78 H Blood Pressure [Right Arm] Blood Pressure Mean [Right Arm] Blood Pressure Source Blood Pressure Source [Right Arm] Blood Pressure Position Blood Pressure Position [Right Arm] 02 Sat by Pulse Oximetry 97 96 98 Oxygen Delivery Method 10/14/24 16:54 Temperature 98.6 F Temperature Source Oral Pulse Rate 88 Pulse Rate [Left Radial] Respiratory Rate 18 Blood Pressure 152/78 H Blood Pressure [Right Arm] Blood Pressure Mean [Right Arm] Blood Pressure Source Automatic Cuff Blood Pressure Source [Right Arm] Blood Pressure Position Supine Blood Pressure Position [Right Arm] 02 Sat by Pulse Oximetry Oxygen Delivery Method Room Air Lab Data Labs: Lab Results 10/14/24 13:09: VBG pH 7.43 H, VBG pCO2 40.9, VBG pO2 61.8 H, VBG HCO3 26.4, VBG Total CO2 27.7 H, VBG O2 Saturation 92.1 H, VBG Base Excess 2.1, VBG Lactic Acid 2.1 H 10/14/24 13:13: WBC 7.0, RBC 4.29, Hgb 13.5, Hct 40.1, MCV 93.5, MCH 31.5 H, MCHC 33.7, RDW 13.0, Plt Count 344, MPV 9.4, Neut % (Auto) 76.8, Lymph % (Auto) 15.2, Oliver % (Auto) 6.4, Eos % (Auto) 0.4, Baso % (Auto) 1.1, Neut # (Auto) 5.4, Lymph # (Auto) 1.1, Oliver # (Auto) 0.5, Eos # (Auto) 0.0, Baso # (Auto) 0.1, D- Dimer 0.81 H, Sodium 138, Potassium 3.8, Chloride 106, Carbon Dioxide 28, Anion Gap 7.8, BUN 14, Creatinine 0.40 L, Estimated Creat Clear 38, Estimated GFR 157, Est GFR ( Amer) 190, Glucose 115 H, Calcium 10.0, Total Bilirubin 0.5, AST 32, ALT 23, Alkaline Phosphatase 63, Troponin I < 0.01, Total Protein 7.1, Albumin 4.6, Globulin 2.5, Albumin/Globulin Ratio 1.8 Response Orders (Tests/Meds): ED MEDICATIONS Generic Name Dose Route Start Last Admin Trade Name Freq PRN Reason Stop Dose Admin Acetaminophen 650 mg 10/14/24 16:37 Acetaminophen 325mg Tab PO 11/13/24 16:36 Q4HP PRN Fever or Mild Pain (1-3) Enoxaparin Sodium 40 mg 10/15/24 09:00 Enoxaparin 40mg/0.4ml Syringe SUBCUT 11/14/24 08:59 DAILY JAMESON Azithromycin 500 mg/ Sodium 250 mls @ 250 mls/hr 10/14/24 16:45 Chloride IV 10/24/24 16:44 Q24H JAMESON Ondansetron HCl 4 mg 10/14/24 16:37 Ondansetron 4mg/2ml Vial IV 11/13/24 16:36 Q8HP PRN Nausea Discontinued Medications Generic Name Dose Route Start Last Admin Trade Name Chun PRN Reason Stop Dose Admin Albuterol/Ipratropium 3 ml 10/14/24 13:09 10/14/24 13:22 Ipratropium/Albuterol 3 Ml Neb IH 10/14/24 13:10 3 ml ONCE ONE Administration Gabapentin 300 mg 10/14/24 13:09 10/14/24 13:14 Gabapentin 300mg Capsule PO 10/14/24 13:10 300 mg ONCE ONE Administration Ceftriaxone Sodium 1 gm/ 50 mls @ 100 mls/hr 10/14/24 16:35 10/14/24 17:27 Sodium Chloride IV 10/14/24 17:04 100 mls/hr Q24H ONE Administration Iopamidol 70 ml 10/14/24 14:38 10/14/24 14:40 Iopamidol-370 (76%);100ml Bottle IV 10/14/24 14:39 70 ml ONCE ONE Administration Methocarbamol 500 mg 10/14/24 15:25 10/14/24 15:57 Methocarbamol 500mg Tablet PO 10/14/24 15:26 500 mg ONCE ONE Administration Sodium Chloride 50 ml 10/14/24 14:38 10/14/24 14:40 0.9 % Sodium Chloride 50 Ml Vial IV 10/14/24 14:39 50 ml ONCE ONE Administration Sodium Chloride 10 ml 10/14/24 14:38 10/14/24 14:40 Sodium Chloride 0.9% 10ml Syr (Rad Only) IV 10/14/24 14:39 10 ml ONCE ONE Administration ORDERS Category Date Time Status CT angio chest PE protocol Stat Cat Scan 10/14/24 14:17 Completed CXR --portable [XR chest portable] Stat Exams 10/14/24 13:09 Completed CBC w/Auto Diff [Complete Blood Count Auto Diff] Stat Lab 10/14/24 13:13 Completed CMP [Comprehensive Metabolic Panel] Stat Lab 10/14/24 13:13 Completed Complete Blood Count Auto Diff AMLAB Lab 10/15/24 06:00 Ordered Complete Blood Count Auto Diff AMLAB Lab 10/16/24 06:00 Ordered Complete Blood Count Auto Diff AMLAB Lab 10/17/24 06:00 Ordered Complete Blood Count Auto Diff AMLAB Lab 10/18/24 06:00 Ordered Complete Blood Count Auto Diff AMLAB Lab 10/19/24 06:00 Ordered Comprehensive Metabolic Panel AMLAB Lab 10/15/24 06:00 Ordered Comprehensive Metabolic Panel AMLAB Lab 10/16/24 06:00 Ordered Comprehensive Metabolic Panel AMLAB Lab 10/17/24 06:00 Ordered Comprehensive Metabolic Panel AMLAB Lab 10/18/24 06:00 Ordered Comprehensive Metabolic Panel AMLAB Lab 10/19/24 06:00 Ordered D-Dimer Stat Lab 10/14/24 13:13 Completed Lipid Panel AMLAB Lab 10/15/24 06:00 Ordered Magnesium AMLAB Lab 10/15/24 06:00 Ordered Magnesium AMLAB Lab 10/16/24 06:00 Ordered Magnesium AMLAB Lab 10/17/24 06:00 Ordered Magnesium AMLAB Lab 10/18/24 06:00 Ordered Magnesium AMLAB Lab 10/19/24 06:00 Ordered Trop I [Troponin I] Stat Lab 10/14/24 13:13 Completed Troponin I Q3H Lab 10/14/24 16:34 Received Troponin I Q3H Lab 10/14/24 19:15 Ordered Blood Culture Stat Micro 10/14/24 17:00 Ordered VBG [Venous Blood Gas] Stat RT 10/14/24 13:09 Completed ECG Data Tracing #1: Attestation: I reviewed this ECG and interpreted as documented below: ECG Narrative: Normal sinus rhythm with a ventricular rate of [address] changes concerning for ischemia. Normal intervals ECG initial impression date: 10/14/24 ECG initial impression time: 13:04
[2024-10-14] MEDS: GABAPENTIN 300MG CAPSULE 300 MG PO (13:14)
[2024-10-14 13:22] LABS: Basophils # 0.1 K/mm3 (0-0.2); Basophils % 1.1 % (0.1-2.0); Eosinophils % 0.4 % (0.1-12.0); Hematocrit 40.1 % (37.0-47.0); Hemoglobin 13.5 g/dL (12.2-16.2); Immature Granulocytes # 0.01 10^3uL; Immature Granulocytes % 0.1 %; Lymphocytes # 1.1 K/mm3 (0.7-4.5); Lymphocytes % 15.2 % (10-50); Mean Corpuscular HGB Conc 33.7 g/dL (31.8-35.4); Mean Corpuscular Hemoglobin 31.5 pg (27.0-31.2); Mean Corpuscular Volume 93.5 fl (81-99); Mean Platelet Volume 9.4 fl (7.4-10.4); Monocytes # 0.5 K/mm3 (0.1-1.0); Monocytes % 6.4 % (1.7-9.3); Neutrophils # 5.4 K/mm3 (1.8-7.8); Neutrophils % 76.8 % (37.0-80.0); Nucleated Red Blood Cells # 0 10^3/uL; Nucleated Red Blood Cells % 0 %; Platelet Count 344 K/mm3 (142-424); Red Blood Count 4.29 M/mm3 (4.20-5.40); Red Cell Distribution Width-SD 44.5 fL
[2024-10-14] MEDS: IPRATROPIUM/ALBUTEROL 3 ML NEB IH (13:22)
[2024-10-14 13:26] LABS: VBG Base Excess 2.1 mmol/L (-2.4-2.3); VBG HCO3 26.4 mmol/L (23-30); VBG Oxygen Saturation 92.1 % (50-70); VBG PCO2 40.9 mmol/L (35-51); VBG PH 7.43 mmol/L (7.31-7.41); VBG PO2 61.8 mmol/L (28-40); VBG Total CO2 27.7 mmol/L (23-27)
--- NOTE | 2024-10-14 13:31 | PC.NURSE ---
PT/OT notified of eval.
[2024-10-14 13:32] LABS: Alanine Aminotransferase 23 U/L (12-78); Albumin Level 4.6 g/dl (3.5-5.0); Albumin/Globulin Ratio 1.8 (1.1-1.8); Alkaline Phosphatase 63 U/L (38-126); Anion Gap 7.8 mEq/L (5-15); Aspartate Amino Transferase 32 U/L (14-36); Bilirubin,Total 0.5 mg/dl (0.2-1.3); Blood Urea Nitrogen 14 mg/dl (7-17); Carbon Dioxide 28 mmol/L (22.0-30.0); Chloride 106 mmol/L (98-107); Creatinine Clearance Estimated 38 mL/min (50-200); Estimated Glomerular Filt Rate 157 ml/min (>60); GFR (African American) 190 ML/MIN (>60); Globulin 2.5 g/dL (1.3-3.2); Glucose 115 mg/dl (74-100); Potassium 3.8 mmoL/L (3.5-5.1); Sodium 138 mmol/L (136-145); Total Protein,Serum 7.1 g/dl (6.3-8.2)
[2024-10-14 13:38] LABS: Lactate Venous 2.1 mmol/L (0.4-2.0)
[2024-10-14 13:45] LABS: D-Dimer 0.81 ug/mL (0.0-0.5)
--- NOTE | 2024-10-14 13:49 | SW/DCPLANNER ---
Spoke with patient about home health services. Patient stated that she is not interested in home health services. Patient stated that she has 2 dogs that will bite and that she has had home health services before and that they could not call for they can put the dogs up. Endy Ramirez
[2024-10-14 14:00] LABS: Troponin I < 0.01 ng/ml (0.00-0.034)
--- NOTE | 2024-10-14 14:17 | CT_ITS ---
FINAL REPORT TECHNIQUE: Postcontrast axial images of the chest were performed in a CTA protocol. The study was performed with techniques to keep radiation dose as low as reasonably achievable, (ALARA). Individual dose reduction techniques using automated exposure control or adjustment of mA and/or kV according to the patient's size were employed. CLINICAL HISTORY: soa elevated dimer FINDINGS: The heart is normal in size. No adenopathy is identified. No pleural or pericardial effusion is identified. The thoracic aorta is normal in caliber with no focal aneurysm or dissection identified. There is airspace disease in the right lower lobe that could represent developing pneumonia. There are emphysematous changes. The images of the upper abdomen are unremarkable. There are age-indeterminate compression deformities of T6, L1 and L2. IMPRESSION: 1. No PE or dissection. 2. Right lower lobe airspace disease concerning for developing pneumonia. 3. Age-indeterminate compression fractures as above. Reviewed, Interpreted and Dictated by Rochelle Gonzales MD Transcribed by JIMMY Oviedo Authenticated and [facility]
[2024-10-14] MEDS: IOPAMIDOL-370 (76%);100ML BOTTLE 70 ML IV (14:40)
[2024-10-14] MEDS: SODIUM CHLORIDE 0.9% 10ML SYR (RAD ONLY) 10 ML IV (14:40)
[2024-10-14] MEDS: 0.9 % SODIUM CHLORIDE 50 ML VIAL IV (14:40)
--- NOTE | 2024-10-14 15:38 | PC.NURSE ---
care management at bedside
--- NOTE | 2024-10-14 15:41 | PC.NURSE ---
called pt/ot to let them know we still need them
[2024-10-14] MEDS: METHOCARBAMOL 500MG TABLET 500 MG PO (15:57)
--- NOTE | 2024-10-14 16:01 | SW/DCPLANNER ---
Addendum entered by Sierra Garcia RN 10/15/24 15:14: Updated nursing staff to wait untill 12pm for transport on Friday. Addendum entered by [facility] 10/15/24 14:25: Per Sohan patient has been accepted and approved by insurance to admit to [facility] on Friday. Patient/family are agreeable to this plan. Addendum entered by [facility] 10/15/24 14:06: Per Sohan w/ [facility] auth is being started today. Sohan stated that he can accept patient on Friday10/17/24 pending approval. I will update patient, family and MD. Addendum entered by [facility] 10/15/24 11:35: Brooklynn rah/ [facility] stated that she will no longer have a bed available for this patient. Patient/family are agreeable for information to be faxed to [facility], [facility] and [facility]. I will continue to follow up w/ patient, family, facilities and MD. Addendum entered by [facility] 10/15/24 09:04: Updated patient information has been faxed to [facility]. Patient is also agreeable for information to be faxed to [facility] at this time. I will continue to follow up w/ [facility] and [facility]. Per MD patient is medically stable for discharge. Original Note: I spoke w/ patient and her daughter (Terrie) regarding plans once medically stable for discharge from ED. PT/OT has been ordered. Patient was recently at [facility] level of care and returned home. Patient is NOT interested in returning to [facility]. Patient is requesting placement only at [facility]. [facility]/ [facility] confirmed that she does have a bed available but not till Friday. [facility] also confirmed that if therapy recommends placement for this patient she could start precert tomorrow for start date of Wednesday 10/18. Patient prefer that patient returns home to await placement. I will fax patient information to [facility] and continue to follow up. I have updated ED staff. Terrie [phone]
--- NOTE | 2024-10-14 16:10 | PC.NURSE ---
called house for pt admission
--- NOTE | 2024-10-14 16:15 | HMH.PTEV ---
Physical Therapy Evaluation Rehab PT IP Evaluation Start: 10/14/24 15:41 Freq: .once Status: Active Protocol: Document 10/14/24 16:09 PORSCHEKAREN (Rec: 10/14/24 16:14 ABBEY [id number]) Subjective/History History History Per H&P, patient is a 74-year -old female PMHx COPD, tobacco abuse, chronic pain syndrome, who presents to the ED for complaints of shortness of breath that started yesterday. Patient does not wear oxygen at home. She states that on July 20 she fell, broke her hip requiring surgery and hospitalization, she was subsequently [facility] to a [facility] for [facility]hab. Subjective Subjective Pt is alert and oriented x3. Pt reports that she lives with her daughter who is also present for evaluation. Pt reports that she is unable to care for herself currently. Reports that she typically requires assistance with dressing but is typically able to walk with a walker. However, she is currently unable to walk at all. New diagnosis of cancer in past 12 No months? [facility] How much help from another person do you currently need... Turning from your back to your side A lot while in a flat bed without using bedrails? Moving from lying on back to sitting on A lot the side of a flat bed without using bedrails? Moving to and from a bed to a chair ( A lot including a wheelchair)? Standing up from a chair using your arms A lot ? (e.g., wheelchair, bedside chair) Walking in hospital room? A lot Climbing 3-5 steps with a railing? A lot Mobility Score 12 Mobility Level [facility] Mobility Calculator Mobility 4 Move to chair/ commode Rehab PT IP Eval Objective Appearance Patient Behavior Appropriate,Patient Baseline Patient Orientation Person,Place,Time Difficulty following instructions none Speech Pattern Clear Ambulation Patient Able to Ambulate No Balance Ability to Arise Unable Sitting Balance Leans or slides in chair Standing Balance Unsteady Dynamic Sitting Balance Ability Poor Dynamic Standing Balance Ability Zero Transfers Bed Transfer Ability Maximum x 2 (75% assist) Chair Transfer Ability Maximum x 2 (75% assist) Sit to Stand Bed Transfer Ability Maximum x 2 (75% assist) Sit to Stand Chair Transfer Ability Maximum x 2 (75% assist) Rehab PT IP prob,goals,plan Problems Date of Evaluation: 10/14/24 PT IP Problems Bed Mobility,Transfers,Gait, Balance,Self care,Safety Rehab Potential Rehab Potential Fair Equipment Needs Assistive Devices None / NA Plan PT Intervention Plan Bed Mobility,Transfers,Gait, Balance,Self care,Safety, Therapeutic Exercise PT Plan Frequency BID Duration LOS Discharge Goals Bed Transfer Ability Moderate x 1 (50% assist) Sit to Stand Chair Transfer Ability Moderate x 1 (50% assist) Ambulation Assistive Device Rolling Walker Ambulation Distance (feet) 10 Discharge Plan PT Discharge Plan PT is recommending placement for this pt upon discharge from the hospital. The pt is unfit for a safe discharge to home and requires assistance of 2 people for all transfers currently. Skilled PT is also indicated for this pt during her acute stay. Eval Complexity Eval Charge Codes 29280 - High Complexity PHYSICIAN CERTIFICATION: I certify the specified therapy services for Gia Farley are required, authorized, and reviewed every 30 days.
--- NOTE | 2024-10-14 16:58 | HMH.OTEV ---
OT Inpatient Evaluation Rehab OT IP Evaluation Start: 10/14/24 15:53 Freq: ONCE Status: Active Protocol: Document 10/14/24 16:[facility] (Rec: 10/14/24 16:57 [facility] [id number]) Rehab OT IP Assessment Subjective History Per H&P, patient is a 74-year -old female PMHx COPD, tobacco abuse, chronic pain syndrome, who presents to the ED for complaints of shortness of breath that started yesterday. Patient does not wear oxygen at home. She states that on July 20 she fell, broke her hip requiring surgery and hospitalization, she was subsequently sent to a [facility] for [facility]. Subjective Pt is alert and oriented x3. Pt reports that she lives with her daughter who is also present for evaluation. Pt reports that she is unable to care for herself currently. Reports that she typically requires assistance with ADLs (dressing and bathing), but is typically able to transfer short distances with a walker. However, she is currently unable to transfer at all. Objective Patient Orientation Person,Place,Birthday Right Upper Extremity Gross ROM Min Limitation <25% Left Upper Extremity Gross ROM Min Limitation <25% Shoulder ROM Limitations Muscle Weakness Elbow ROM Limitations Muscle Weakness Wrist Limitations of Range of Motion Muscle Weakness Bed Mobility bed mobility-scooting,bed mobility - supine/sit Assist Level Maximum x 2 (75% assist) Rehab OT IP prob,goals,plan Problems Date of Evaluation: 10/14/24 OT IP Problems Bed Mobility,Transfers,Balance ,Self care Rehab Potential Rehab Potential Good Equipment Needs Assistive Devices Rolling / Wheeled Walker Plan OT intervention Plan Bed Mobility,Transfers,Balance ,Self care,Safety,Therapeutic Exercise OT Plan Frequency Daily Duration LOS Discharge Goals Bed Mobility Ability Assistance x1 Sit to Stand Chair Transfer Ability Moderate x 1 (50% assist) Chair Transfer Ability Moderate x 1 (50% assist) Chair Transfer Technique Sit to/from Ambulatory Chair Transfer Assistive Devices Rolling Walker Feeding Ability Assist with Tray Set Up Lower Body Dressing Ability Moderate Assistance Upper Body Dressing Ability Minimal Assistance Bathing Ability Moderate Assistance Performing Toilet Hygiene Ability Moderate Assistance Overall Commode/Toilet Transfer Ability Moderate Assistance Commode/Toilet Transfer Technique Sit to/from Ambulatory Commode/Toilet Transfer Assistive Grab Bars Devices Oral Care Assist Minimal Assistance Decrease in Endurance Yes Discharge Plan OT Discharge Plan At this time, pt would benefit most from short term rehab at SNF following discharge from hospital. Continued skilled therapy is significantly important in order for patient to improve strength, safety, endurance, ADL independence, and functional transfers to reach PLOF. Eval Complexity Eval Charge Codes 40402 - Moderate Complexity PHYSICIAN CERTIFICATION: I certify the specified therapy services for Gia Farley are required, authorized, and reviewed every 30 days.
[2024-10-14] MEDS: CEFTRIAXONE 1 GM 1 GM in 0.9 % SODIUM CHLORIDE 50 ML IV (17:27)
[2024-10-14 17:39] LABS: Reflex Lactic Add Lactic Reflex
[2024-10-14] MEDS: AZITHROMYCIN 500 MG in 0.9 % SODIUM CHLORIDE 250 ML 250 MG IV (18:23)
[2024-10-14 18:38] LABS: Lactic Acid Follow Up (RFLX 1) 1.4 mmol/L (0.7-2.1)
[2024-10-14 19:48] LABS: Troponin I < 0.01 ng/ml (0.00-0.034)
[2024-10-14 20:28] LABS: Troponin I < 0.01 ng/ml (0.00-0.034)
--- NOTE | 2024-10-14 21:31 | P.HP_ITS ---
History of Present Illness *Admission Date: 10/17/24 *Reason for visit:: Functional decline, weakness *History of present illness: Gia Farley is a 74-year-old female who presents with increasing shortness of breath and functional decline. Had left hip fracture s/p hemiarthroplasty in July 2024 and discharged to [facility]. Went home in August but unfortunately patient states over the past few weeks she has had functional decline and shortness of breath. CTA chest suggestive of right lower lobe pneumonia, CBC and CMP and other workup otherwise unremarkable. Case discussed with the provider and decision was made to admit patient for functional decline, RLL pneumonia. [facility] Disclaimer: The information contained in this section may have been updated after the jevon avila was seen, as this information can be updated by other users. Medical History Neuropathy Abnormal CT of the chest COPD (chronic obstructive pulmonary disease) Large bullae/bleb right apex. No evidence of malignancy History of cataract Depression Surgical History History of surgery on wrist Family History Other Cancer Social History (Updated 10/14/24 @ 18:03 by Shantal Valles RN) Smoking Status: Never smoker smoking status start date: 40 yrs ago alcohol intake: never substance use type: denies use current occupational status: retired Travel in the last 8 weeks?: None household members: family housing: house marital status: single number of children: 1 Have you lived/traveled outside [place] in past 30 days?: No Contact w/someone who lives/traveled outside US past 30 days?: No Exposure to someone with infectious disease in past 14 days?: No Do you have a fever (greater than 100.4 F or 38 C)?: No Have you tested positive for COVID-19?: No Exposed to someone with COVID-19 in past 14 days?: No Do you have a sore throat?: No Do you have a cough?: No Do you have any weakness?: Yes Are you experiencing any nausea/vomitting?: No Do you have any diarrhea?: No Are you experiencing any unusual bleeding?: No Do you have any muscle aches/pain?: No Do you have any abdominal pain?: No Are you experiencing loss of taste or smell?: No Other Medical History Have you received the Flu Vaccine for this season: Yes Have you received the Pneumonia Vaccine: No Meds Home Medications and Allergies Home Medications ?Medication ?Instructions ?Recorded ?Confirmed ?Type multivitamin 1 tab PO DAILY 11/17/23 10/14/24 History buspirone 5 mg tablet 5 mg PO BID 10/14/24 10/15/24 History mirtazapine 30 mg tablet 30 mg PO HS 10/15/24 10/15/24 History cefdinir 300 mg capsule 300 mg PO BID 2 days #4 caps 10/17/24 Rx gabapentin 300 mg capsule 300 mg PO 1200 30 days #30 caps 10/17/24 Rx gabapentin 300 mg capsule 600 mg (2 x 300 mg) PO HS 30 days 10/17/24 Rx #60 caps ipratropium 0.5 mg-albuterol 3 mg 3 ml inhalation Q6HP PRN Shortness 10/17/24 Rx (2.5 mg base)/3 mL nebulization Of Breath 30 days #90 mL soln New Prescriptions to Start Prescriptions: cefdinir [place],Ambrocio gabapentin [place],Ambrocio gabapentin [place],Ambrocio ipratropium-albuterol [place],Ambrocio Allergies Allergy/AdvReac Type Severity Reaction Status Date / Time Sulfa (Sulfonamide Allergy Unknown Hives Verified 09/07/24 15:06 Antibiotics) Exam Data for Last 24 hours Vital signs and Labs for Last 24 Hours: Temp Pulse Resp BP Pulse Ox O2 Del Method 97.4 F L 87 18 122/62 96 Room Air 10/14/24 20:00 10/14/24 20:00 10/14/24 20:00 10/14/24 20:00 10/14/24 20:00 10/14/24 20:00 Laboratory Results - last 24 hr 10/14/24 13:09: VBG pH 7.43 H, VBG pCO2 40.9, VBG pO2 61.8 H, VBG HCO3 26.4, VBG Total CO2 27.7 H, VBG O2 Saturation 92.1 H, VBG Base Excess 2.1, VBG Lactic Acid 2.1 H 10/14/24 13:13: WBC 7.0, RBC 4.29, Hgb 13.5, Hct 40.1, MCV 93.5, MCH 31.5 H, MCHC 33.7, RDW 13.0, Plt Count 344, MPV 9.4, Neut % (Auto) 76.8, Lymph % (Auto) 15.2, [place] % (Auto) 6.4, Eos % (Auto) 0.4, Baso % (Auto) 1.1, Neut # (Auto) 5.4, Lymph # (Auto) 1.1, [place] # (Auto) 0.5, Eos # (Auto) 0.0, Baso # (Auto) 0.1, D- [place] 0.81 H, Sodium 138, Potassium 3.8, Chloride 106, Carbon Dioxide 28, Anion Gap 7.8, BUN 14, Creatinine 0.40 L, Estimated Creat Clear 38, Estimated GFR 157, Est GFR ( Amer) 190, Glucose 115 H, Calcium 10.0, Total Bilirubin 0.5, AST 32, ALT 23, Alkaline Phosphatase 63, Troponin I < 0.01, Total Protein 7.1, Albumin 4.6, Globulin 2.5, Albumin/Globulin Ratio 1.8 10/14/24 16:34: Troponin I < 0.01 10/14/24 17:59: Lactate 1.4 10/14/24 19:47: Troponin I < 0.01 I & O for Last 24 hours: Intake & Output 10/11/24 10/12/24 10/13/24 10/14/24 23:59 23:59 23:59 23:59 Weight 44.225 kg Constitutional Constitutional: no acute distress and cachectic *Routine HEENT Exam Head: Present normocephalic Eye: Present EOMI and PERRL ENT: Present mucous membranes moist *Routine Neck Exam Neck: Present supple; Absent lymphadenopathy *Routine Respiratory Exam Respiratory: Present CTA bilaterally *Routine Cardiovascular Exam Cardiovascular: Present RRR *Routine Abdominal Exam Abdominal: Present soft and normoactive bowel sounds; Absent tenderness *Routine Rectal Exam Rectal:: deferred *Routine Genitalia Exam Genitalia:: deferred *Routine Extremities Exam Extremities: Absent cyanosis, clubbing or edema *Routine Skin Exam Skin: Present warm; Absent rash *Routine Neurological Exam Neurological: Present alert and oriented X3 Assessment and Plan *Assessment and plan (1) Declining functional status: Status: Acute Category: Medical Code(s): R53.81 - Other malaise Plan Gia Farley is a 74-year-old female who presents with increasing shortness of breath and functional decline. Had left hip fracture s/p hemiarthroplasty in July 2024 and discharged to [facility]. Went home in August but unfortunately patient states over the past few weeks she has had functional decline and shortness of breath. CTA chest suggestive of right lower lobe pneu monia, CBC and CMP and other workup otherwise unremarkable. Case discussed with the provider and decision was made to admit patient for functional decline, RLL pneumonia. #Community-acquired pneumonia #Functional decline #History of left hip fracture ? CTA chest suggestive of right lower lobe pneumonia. WBC normal. No signs of sepsis. On room air. ? Ceftriaxone, azithromycin day 1. ? Follow-up sputum, blood cultures. ? PT/OT consulted, recommended SNF. Case management assisting with placement. #Right lower lobe pneumonia - On CTA chest. ? Ceftriaxone, azithromycin day 1. ? Follow-up sputum, blood cultures. #Severe protein calorie malnutrition ? Nutrition following, providing nutritional counseling and supplements. #Anxiety/depression ? Resume home gabapentin, hydroxyzine, mirtazapine. Full code DVT prophylaxis: Lovenox 40 mg
[2024-10-14] MEDS: MIRTAZAPINE 15 MG TABLET 30 MG PO (21:33)
[2024-10-14] MEDS: GABAPENTIN 300MG CAPSULE 600 MG PO (21:34)
[2024-10-14] MEDS: BUSPIRONE HCL 5 MG TABLET PO (21:34)
[2024-10-15] MEDS: TRAMADOL 50MG TABLET 50 MG PO ×2 (00:28→18:51)
[2024-10-15] MEDS: ACETAMINOPHEN 325MG TAB 650 MG PO ×3 (03:22→20:17)
[2024-10-15 04:00] VITALS: BP 117/68; PULSE 72; RESP 16; TEMP 36.4; O2SAT 97; BMI 15.3
[2024-10-15] MEDS: IBUPROFEN 400 MG TABLET PO (04:58)
--- NOTE | 2024-10-15 05:25 | PC.NURSE ---
Alert and oriented. Complained of lower back pain several times, treated per aug. Patient requires maximum assistance to and from chair, patient has a very hard time getting comfortable. Room air, lung sounds clear, bases mildly diminished. Redness noted to coccyx, foam patch applied. No other complaints from patient. Call light in reach. Bed alarm on. Uses purewick.
[2024-10-15 06:01] LABS: Basophils # 0.1 K/mm3 (0-0.2); Basophils % 1.2 % (0.1-2.0); Eosinophils # 0.2 Kmm3 (0.0-0.4); Hematocrit 38.4 % (37.0-47.0); Immature Granulocytes # 0.02 10^3uL; Immature Granulocytes % 0.3 %; Lymphocytes # 1.8 K/mm3 (0.7-4.5); Lymphocytes % 29.8 % (10-50); Mean Corpuscular HGB Conc 33.9 g/dL (31.8-35.4); Mean Corpuscular Hemoglobin 31.9 pg (27.0-31.2); Mean Corpuscular Volume 94.1 fl (81-99); Mean Platelet Volume 9.5 fl (7.4-10.4); Monocytes # 0.6 K/mm3 (0.1-1.0); Monocytes % 9.5 % (1.7-9.3); Neutrophils # 3.3 K/mm3 (1.8-7.8); Neutrophils % 55.2 % (37.0-80.0); Nucleated Red Blood Cells # 0 10^3/uL; Nucleated Red Blood Cells % 0 %; Platelet Count 291 K/mm3 (142-424); Red Blood Count 4.08 M/mm3 (4.20-5.40); Red Cell Distribution Width-SD 44.9 fL
[2024-10-15 06:09] LABS: Chloride 105 mmol/L (98-107)
[2024-10-15 06:10] LABS: Potassium 3.4 mmoL/L (3.5-5.1); Sodium 139 mmol/L (136-145)
[2024-10-15 06:13] LABS: Alanine Aminotransferase 18 U/L (12-78); Albumin/Globulin Ratio 1.7 (1.1-1.8); Alkaline Phosphatase 57 U/L (38-126); Anion Gap 8.4 mEq/L (5-15); Aspartate Amino Transferase 27 U/L (14-36); Bilirubin,Total 0.3 mg/dl (0.2-1.3); Blood Urea Nitrogen 12 mg/dl (7-17); Carbon Dioxide 29 mmol/L (22.0-30.0); Cholesterol 172 mg/dl (140-200); Creatinine Clearance Estimated 37 mL/min (50-200); Estimated Glomerular Filt Rate 121 ml/min (>60); GFR (African American) 147 ML/MIN (>60); Globulin 2.4 g/dL (1.3-3.2); Glucose 97 mg/dl (74-100); Magnesium 1.8 mg/dl (1.6-2.3); Total Protein,Serum 6.4 g/dl (6.3-8.2); Triglycerides 117 mg/dl (30-150); VLDL Cholesterol 23 mg/dL (0-40)
[2024-10-15 06:14] LABS: HDL Cholesterol 57 mg/dl (40-60)
[2024-10-15 06:24] LABS: Direct LDL Cholesterol 80.03 mg/dL (100-129)
[2024-10-15] MEDS: POTASSIUM CHLORIDE 20MEQ TAB 40 MEQ PO ×2 (06:41→10:28)
[2024-10-15 08:00] VITALS: BP 136/76; PULSE 100; RESP 14; TEMP 36.3; O2SAT 95
--- NOTE | 2024-10-15 08:30 | HMH.PHAINT1 ---
Pharmacy Intervention Comments: home medication list verified using list from outpatient pharmacy
[2024-10-15] MEDS: ENOXAPARIN 40MG/0.4ML SYRINGE 40 MG SUBCUT (08:36)
[2024-10-15] MEDS: CEFTRIAXONE 1 GM 1 GM in 0.9 % SODIUM CHLORIDE 50 ML IV (08:36)
[2024-10-15] MEDS: GABAPENTIN 300MG CAPSULE 300 MG PO (08:36)
[2024-10-15] MEDS: SODIUM CHLORIDE 3% 15ML NEB 3 ML IH (09:16)
[2024-10-15 09:18] VITALS: PULSE 76; RESP 14
[2024-10-15] MEDS: METHOCARBAMOL 500MG TABLET 500 MG PO ×2 (10:25→20:17)
[2024-10-15] MEDS: ARTIFICIAL TEARS SOLN 15ML BOTTLE OP ×2 (10:25→14:39)
[2024-10-15 13:46] VITALS: BMI 15.3
[2024-10-15 16:00] VITALS: BP 138/71; PULSE 76; RESP 16; TEMP 36.4; O2SAT 98
[2024-10-15] MEDS: AZITHROMYCIN 500 MG in 0.9 % SODIUM CHLORIDE 250 ML 250 MG IV (16:54)
[2024-10-15] MEDS: MULTIVITAMIN TABLET 1 EACH PO (16:59)
--- NOTE | 2024-10-15 17:08 | PC.NURSE ---
VS stable, patient remained on room air. Patient able to sit in chair for small periods of time due to pain. MD aware of pain, methocarbamol ordered for pain. Lung sounds clear
--- NOTE | 2024-10-15 18:44 | EXP.PN ---
Subjective *Date: 10/15/24 *Time: 18:44 Interval history: Patient doing well, however did not sleep last night. Started on time. Accepted to [facility], plan to discharge on Friday after qualifying stay. Exam Data for Last 24 hours Vital signs and Labs for Last 24 Hours: Temp Pulse Resp BP Pulse Ox O2 Del Method 97.6 F 76 16 138/71 98 Room Air 10/15/24 16:00 10/15/24 16:00 10/15/24 16:00 10/15/24 16:00 10/15/24 16:00 10/15/24 17:00 Laboratory Results - last 24 hr 10/14/24 16:34: Troponin I < 0.01 10/14/24 19:47: Troponin I < 0.01 10/15/24 05:20: WBC 6.0, RBC 4.08 L, Hgb 13.0, Hct 38.4, MCV 94.1, MCH 31.9 H, MCHC 33.9, RDW 13.0, Plt Count 291, MPV 9.5, Neut % (Auto) 55.2, Lymph % (Auto) 29.8, [place] % (Auto) 9.5 H, Eos % (Auto) 4.0, Baso % (Auto) 1.2, Neut # (Auto) 3.3, Lymph # (Auto) 1.8, [place] # (Auto) 0.6, Eos # (Auto) 0.2, Baso # (Auto) 0.1, Sodium 139, Potassium 3.4 L, Chloride 105, Carbon Dioxide 29, Anion Gap 8.4, BUN 12, Creatinine 0.50 L D, Estimated Creat Clear 37, Estimated GFR 121, Est GFR ( Amer) 147 D, Glucose 97, Calcium 9.0, Magnesium 1.8, Total Bilirubin 0.3, AST 27, ALT 18, Alkaline Phosphatase 57, Total Protein 6.4, Albumin 4.0 D, Globulin 2.4, Albumin/Globulin Ratio 1.7, Triglycerides 117, Cholesterol 172, LDL Cholesterol Direct 80.03 L, VLDL Cholesterol 23, HDL Cholesterol 57, Cholesterol/HDL Ratio 3.0 I & O for Last 24 hours: Intake & Output 10/12/24 10/13/24 10/14/24 10/15/24 23:59 23:59 23:59 23:59 Intake Total 1470 / 1470 Output Total 300 / 300 1100 / 1100 Balance -300 / -120 370 / 370 Weight 44.225 kg 45.7 kg Microbiology Reports for the Last 24 Hours: Microbiology 10/14/24 17:23 Blood Blood Culture - Preliminary NO GROWTH AFTER 24 HOURS 10/14/24 17:23 Blood Blood Culture - Preliminary NO GROWTH AFTER 24 HOURS 10/15/24 13:00 Sputum - Expectorated Sputum Gram Stain - Final Constitutional Constitutional: no acute distress and cachectic *Routine HEENT Exam Head: Present normocephalic Eye: Present EOMI and PERRL ENT: Present mucous membranes moist *Routine Neck Exam Neck: Present supple; Absent lymphadenopathy *Routine Respiratory Exam Respiratory: Present CTA bilaterally *Routine Cardiovascular Exam Cardiovascular: Present RRR *Routine Abdominal Exam Abdominal: Present soft and normoactive bowel sounds; Absent tenderness *Routine Extremities Exam Extremities: Absent cyanosis, clubbing or edema *Routine Skin Exam Skin: Present warm; Absent rash *Routine Neurological Exam Neurological: Present alert and oriented X3 Assessment and Plan *Assessment and plan (1) Left displaced femoral neck fracture: Problem Comment: s/p L hemiarthroplasty DOS: 07/21/24 Status: Resolved Category: Medical Code(s): S72.002A - Fracture of unspecified part of neck of left femur, initial encounter for closed fracture Plan Gia Farley is a 73-year-old female who presented with a fall and admitted for left hip fracture s/p hemiarthroplasty. #Left hip fracture s/p hemiarthroplasty #Recurrent falls ? Orthopedic surgery consulted, s/p left hemiarthroplasty 07/21/2024. Patient tolerated procedure well. ? Orthopedic surgery following, recommend weightbearing as tolerated. ? Hemoglobin 11.9, vital signs stable. ? PT/OT consulted, recommended SNF. Case management assisting with placement. Accepted to [facility], planning discharge on Friday after qualifying stay. ? Pain control with [place], Dilaudid as needed. ? DVT prophylaxis with Lovenox 40 mg. #Right lower lobe pneumonia ? Continue ceftriaxone, azithromycin day 2. ? Follow-up sputum, blood cultures. #Severe protein calorie malnutrition ? Nutrition following, providing nutritional counseling and supplements. #Anxiety/depression ? Resume home gabapentin, hydroxyzine, mirtazapine. Full code DVT prophylaxis: Lovenox 40 mg
[2024-10-15 19:50] VITALS: BP 149/77; PULSE 83; RESP 17; TEMP 36.6; O2SAT 95
[2024-10-15] MEDS: BUSPIRONE HCL 5 MG TABLET PO (20:17)
[2024-10-15] MEDS: GABAPENTIN 300MG CAPSULE 600 MG PO (20:17)
[2024-10-15] MEDS: MELATONIN 5MG TABLET 5 MG PO (20:17)
[2024-10-15] MEDS: MIRTAZAPINE 15 MG TABLET 30 MG PO (20:17)
[2024-10-15] MEDS: ONDANSETRON 4MG/2ML VIAL 4 MG IV (20:17)
[2024-10-15 23:29] VITALS: BP 147/71; PULSE 62; RESP 14; TEMP 36.6; O2SAT 94
[2024-10-16 04:00] VITALS: BP 111/71; PULSE 62; RESP 14; TEMP 36.8; O2SAT 98; BMI 15.0
--- NOTE | 2024-10-16 04:04 | PC.NURSE ---
v/s, ox4. Pt pending placement at [facility] in [place] on Friday after 1200pm. Pt c/o pain, treated per AUG. Pt has been resting well overnight. No acute events to report. Plan of care ongoing.
[2024-10-16 06:47] LABS: Albumin Level 3.7 g/dl (3.5-5.0); Basophils # 0.1 K/mm3 (0-0.2); Basophils % 1.8 % (0.1-2.0); Chloride 106 mmol/L (98-107); Eosinophils # 0.3 Kmm3 (0.0-0.4); Immature Granulocytes # 0.01 10^3uL; Immature Granulocytes % 0.2 %; Lymphocytes # 1.7 K/mm3 (0.7-4.5); Lymphocytes % 30.7 % (10-50); Mean Corpuscular HGB Conc 33.3 g/dL (31.8-35.4); Mean Corpuscular Hemoglobin 31.2 pg (27.0-31.2); Mean Corpuscular Volume 93.5 fl (81-99); Mean Platelet Volume 9.4 fl (7.4-10.4); Monocytes # 0.6 K/mm3 (0.1-1.0); Monocytes % 10.4 % (1.7-9.3); Neutrophils # 2.8 K/mm3 (1.8-7.8); Neutrophils % 50.9 % (37.0-80.0); Nucleated Red Blood Cells # 0 10^3/uL; Nucleated Red Blood Cells % 0 %; Platelet Count 292 K/mm3 (142-424); Red Blood Count 4.17 M/mm3 (4.20-5.40); Red Cell Distribution Width 12.9 % (11.5-17.5); Red Cell Distribution Width-SD 44.1 fL; White Blood Count 5.5 K/mm3 (4.8-10.8)
[2024-10-16 06:48] LABS: Potassium 4.1 mmoL/L (3.5-5.1); Sodium 136 mmol/L (136-145)
[2024-10-16 06:50] LABS: Alanine Aminotransferase 19 U/L (12-78); Albumin/Globulin Ratio 1.4 (1.1-1.8); Alkaline Phosphatase 50 U/L (38-126); Anion Gap 6.1 mEq/L (5-15); Aspartate Amino Transferase 23 U/L (14-36); Bilirubin,Total 0.3 mg/dl (0.2-1.3); Blood Urea Nitrogen 9 mg/dl (7-17); Carbon Dioxide 28 mmol/L (22.0-30.0); Creatinine Clearance Estimated 36 mL/min (50-200); Estimated Glomerular Filt Rate 121 ml/min (>60); GFR (African American) 147 ML/MIN (>60); Globulin 2.6 g/dL (1.3-3.2); Total Protein,Serum 6.3 g/dl (6.3-8.2)
[2024-10-16 06:51] LABS: Calcium 9.2 mg/dl (8.4-10.2); Glucose 91 mg/dl (74-100); Magnesium 1.8 mg/dl (1.6-2.3)
[2024-10-16 08:00] VITALS: BP 143/74; PULSE 76; RESP 16; TEMP 36.3; O2SAT 94
[2024-10-16] MEDS: CEFTRIAXONE 1 GM 1 GM in 0.9 % SODIUM CHLORIDE 50 ML IV (09:26)
[2024-10-16] MEDS: ENOXAPARIN 40MG/0.4ML SYRINGE 40 MG SUBCUT (09:26)
[2024-10-16] MEDS: ACETAMINOPHEN 325MG TAB 650 MG PO ×3 (09:27→20:14)
[2024-10-16] MEDS: GABAPENTIN 300MG CAPSULE 300 MG PO (09:27)
[2024-10-16] MEDS: ARTIFICIAL TEARS SOLN 15ML BOTTLE OP ×2 (10:12→14:51)
[2024-10-16] MEDS: TRAMADOL 50MG TABLET 50 MG PO ×2 (12:07→20:14)
[2024-10-16 16:00] VITALS: BP 130/62; PULSE 81; RESP 18; TEMP 36.3; O2SAT 96
--- NOTE | 2024-10-16 16:53 | P.PN_ITS ---
Subjective *Date: 10/16/24 *Time: 16:53 Interval history: Patient slept better with melatonin, methocarbamol last night. Looking forward to going to [facility] tomorrow. No acute complaints. Exam Data for Last 24 hours Vital signs and Labs for Last 24 Hours: Temp Pulse Resp BP Pulse Ox O2 Del Method 97.4 F L 76 16 143/74 H 94 L Room Air 10/16/24 08:00 10/16/24 08:00 10/16/24 08:00 10/16/24 08:00 10/16/24 08:00 10/16/24 15:00 Laboratory Results - last 24 hr 10/16/24 06:20: WBC 5.5, RBC 4.17 L, Hgb 13.0, Hct 39.0, MCV 93.5, MCH 31.2, MCHC 33.3, RDW 12.9, Plt Count 292, MPV 9.4, Neut % (Auto) 50.9, Lymph % (Auto) 30.7, [place] % (Auto) 10.4 H, Eos % (Auto) 6.0, Baso % (Auto) 1.8, Neut # (Auto) 2.8, Lymph # (Auto) 1.7, [place] # (Auto) 0.6, Eos # (Auto) 0.3, Baso # (Auto) 0.1, Sodium 136, Potassium 4.1 D, Chloride 106, Carbon Dioxide 28, Anion Gap 6.1, BUN 9, Creatinine 0.50 L, Estimated Creat Clear 36, Estimated GFR 121, Est GFR ( Amer) 147, Glucose 91, Calcium 9.2, Magnesium 1.8, Total Bilirubin 0.3, AST 23, ALT 19, Alkaline Phosphatase 50, Total Protein 6.3, Albumin 3.7, Globulin 2.6, Albumin/Globulin Ratio 1.4 I & O for Last 24 hours: Intake & Output 10/13/24 10/14/24 10/15/24 10/16/24 23:59 23:59 23:59 23:59 Intake Total 1470 / 1470 510 / 510 Output Total 300 / 300 1500 / 1500 950 / 950 Balance -300 / -120 -30 / -30 -440 / -440 Weight 44.225 kg 45.7 kg 45.019 kg Microbiology Reports for the Last 24 Hours: Microbiology 10/14/24 17:23 Blood Blood Culture - Preliminary NO GROWTH AFTER 24 HOURS 10/14/24 17:23 Blood Blood Culture - Preliminary NO GROWTH AFTER 24 HOURS 10/15/24 13:00 Sputum - Expectorated Sputum Gram Stain - Final Constitutional Constitutional: no acute distress and cachectic *Routine HEENT Exam Head: Present normocephalic Eye: Present EOMI and PERRL ENT: Present mucous membranes moist *Routine Neck Exam Neck: Present supple; Absent lymphadenopathy *Routine Respiratory Exam Respiratory: Present CTA bilaterally *Routine Cardiovascular Exam Cardiovascular: Present RRR *Routine Abdominal Exam Abdominal: Present soft and normoactive bowel sounds; Absent tenderness *Routine Extremities Exam Extremities: Absent cyanosis, clubbing or edema *Routine Skin Exam Skin: Present warm; Absent rash *Routine Neurological Exam Neurological: Present alert and oriented X3 Assessment and Plan *Assessment and plan (1) Left displaced femoral neck fracture: Problem Comment: s/p L hemiarthroplasty DOS: 07/21/24 Status: Resolved Category: Medical Code(s): S72.002A - Fracture of unspecified part of neck of left femur, initial encounter for closed fracture (2) Declining functional status: Status: Acute Category: Medical Code(s): R53.81 - Other malaise Plan Gia Farley is a 74-year-old female who presents with increasing shortness of breath and functional decline. #Community-acquired pneumonia #Functional decline #History of left hip fracture ? CTA chest suggestive of right lower lobe pneumonia. WBC normal. No signs of sepsis. On room air. ? Ceftriaxone, azithromycin day 2. ? Follow-up sputum, blood cultures. ? PT/OT consulted, recommended SNF. Case management assisting with placement. Accepted to [facility], planning discharge on Friday after qualifying stay. ? B12 normal. Follow-up TSH, folate. ? Follow-up sputum, blood cultures. #Severe protein calorie malnutrition #Cachexia ? BMI 15.0. ? Nutrition following, providing nutritional counseling and supplements. #Anxiety/depression #Chronic pain syndrome #Insomnia ? Resume home gabapentin, hydroxyzine, mirtazapine. ? Continue melatonin, methocarbamol. Full code DVT prophylaxis: Lovenox 40 mg
[2024-10-16] MEDS: MULTIVITAMIN TABLET 1 EACH PO (17:30)
[2024-10-16 19:41] VITALS: BP 127/60; PULSE 87; RESP 16; TEMP 37.1; O2SAT 96
[2024-10-16] MEDS: ONDANSETRON 4MG/2ML VIAL 4 MG IV (20:13)
[2024-10-16] MEDS: GABAPENTIN 300MG CAPSULE 600 MG PO (20:14)
[2024-10-16] MEDS: BUSPIRONE HCL 5 MG TABLET PO (20:15)
[2024-10-16] MEDS: MELATONIN 5MG TABLET 5 MG PO (20:15)
[2024-10-16] MEDS: MIRTAZAPINE 15 MG TABLET 30 MG PO (20:15)
[2024-10-16] MEDS: METHOCARBAMOL 500MG TABLET 500 MG PO (20:15)
[2024-10-17 04:00] VITALS: BP 130/68; PULSE 64; RESP 16; TEMP 36.8; O2SAT 96; BMI 15.0
--- NOTE | 2024-10-17 04:33 | PC.NURSE ---
Pending placement today at [facility] in [place] AFTER 12pm. V/s, ox4. No acute events to report. Plan of care ongoing.
[2024-10-17 08:00] VITALS: BP 123/65; PULSE 88; RESP 16; TEMP 36.4; O2SAT 95
[2024-10-17 08:03] LABS: Basophils # 0.1 K/mm3 (0-0.2); Basophils % 1.3 % (0.1-2.0); Eosinophils # 0.4 Kmm3 (0.0-0.4); Eosinophils % 7.3 % (0.1-12.0); Hematocrit 40.2 % (37.0-47.0); Hemoglobin 13.5 g/dL (12.2-16.2); Immature Granulocytes # 0.01 10^3uL; Immature Granulocytes % 0.2 %; Lymphocytes # 1.8 K/mm3 (0.7-4.5); Lymphocytes % 35.4 % (10-50); Mean Corpuscular HGB Conc 33.6 g/dL (31.8-35.4); Mean Corpuscular Hemoglobin 31.6 pg (27.0-31.2); Mean Corpuscular Volume 94.1 fl (81-99); Mean Platelet Volume 9.7 fl (7.4-10.4); Monocytes # 0.5 K/mm3 (0.1-1.0); Monocytes % 10.2 % (1.7-9.3); Neutrophils # 2.4 K/mm3 (1.8-7.8); Neutrophils % 45.6 % (37.0-80.0); Nucleated Red Blood Cells # 0 10^3/uL; Nucleated Red Blood Cells % 0 %; Platelet Count 313 K/mm3 (142-424); Red Blood Count 4.27 M/mm3 (4.20-5.40); Red Cell Distribution Width 12.9 % (11.5-17.5); Red Cell Distribution Width-SD 44.1 fL; White Blood Count 5.2 K/mm3 (4.8-10.8)
[2024-10-17 08:29] LABS: Chloride 102 mmol/L (98-107); Potassium 3.9 mmoL/L (3.5-5.1); Sodium 135 mmol/L (136-145)
[2024-10-17 08:32] LABS: Alanine Aminotransferase 19 U/L (12-78); Albumin/Globulin Ratio 1.7 (1.1-1.8); Alkaline Phosphatase 51 U/L (38-126); Anion Gap 6.9 mEq/L (5-15); Aspartate Amino Transferase 24 U/L (14-36); Bilirubin,Total 0.2 mg/dl (0.2-1.3); Blood Urea Nitrogen 15 mg/dl (7-17); Calcium 9.3 mg/dl (8.4-10.2); Carbon Dioxide 30 mmol/L (22.0-30.0); Creatinine Clearance Estimated 36 mL/min (50-200); Estimated Glomerular Filt Rate 98 ml/min (>60); GFR (African American) 119 ML/MIN (>60); Globulin 2.4 g/dL (1.3-3.2); Glucose 89 mg/dl (74-100); Magnesium 1.8 mg/dl (1.6-2.3); Total Protein,Serum 6.4 g/dl (6.3-8.2)
[2024-10-17 08:48] LABS: Free T4 (Free Thyroxine) 1.07 ng/dl (0.78-2.19)
[2024-10-17] MEDS: IPRATROPIUM/ALBUTEROL 3 ML NEB IH (08:48)
[2024-10-17 08:50] VITALS: PULSE 82
[2024-10-17 09:02] LABS: Thyroid Stimulating Hormone 3.79 uIU/mL (0.465-4.68)
[2024-10-17 09:07] LABS: Ferritin 157 ng/ml (11.1-264)
[2024-10-17] MEDS: ACETAMINOPHEN 325MG TAB 650 MG PO (09:09)
[2024-10-17] MEDS: GABAPENTIN 300MG CAPSULE 300 MG PO (09:09)
[2024-10-17] MEDS: ENOXAPARIN 40MG/0.4ML SYRINGE 40 MG SUBCUT (09:10)
[2024-10-17] MEDS: CEFTRIAXONE 1 GM 1 GM in 0.9 % SODIUM CHLORIDE 50 ML IV (09:10)
[2024-10-17 10:05] LABS: Folate > 20.00 ng/mL
[2024-10-17] MEDS: POLYETHYLENE GLYCOL 3350 17 GM PACKET PO (10:10)
--- NOTE | 2024-10-17 11:57 | EXP.DC.SUM ---
General Admission date:: 10/14/24 HPI HPI HPI: Gia aFrley is a 74-year-old female who presents with increasing shortness of breath and functional decline. #Community-acquired pneumonia #Functional decline #History of left hip fracture ? CTA chest suggestive of right lower lobe pneumonia. WBC normal. No signs of sepsis. On room air. ? Ceftriaxone, azithromycin day 1. ? Follow-up sputum, blood cultures. ? PT/OT consulted, recommended SNF. Case management assisting with placement. #Right lower lobe pneumonia - On CTA chest. ? Ceftriaxone, azithromycin day 1. ? Follow-up sputum, blood cultures. #Severe protein calorie malnutrition ? Nutrition following, providing nutritional counseling and supplements. #Anxiety/depression ? Resume home gabapentin, hydroxyzine, mirtazapine. Full code DVT prophylaxis: Lovenox 40 mg Hospital Course Hospital Course Hospital Course: Gia Farley is a 74-year-old female who presents with increasing shortness of breath and functional decline. #Community-acquired pneumonia #Functional decline, physical deconditioning #History of left hip fracture ? CTA chest suggestive of right lower lobe pneumonia. WBC normal. No signs of sepsis. On room air. ? Treated with ceftriaxone and azithromycin, but continues to have significant physical deconditioning. ? PT/OT consulted, recommended SNF. Graciously accepted to [facility]. ? DuoNebs as needed. ? B12, folate, TSH normal. #Severe protein calorie malnutrition #Cachexia ? BMI 15.0. ? Nutrition following, providing nutritional counseling and supplements. Continue nutritional supplements with meals. ? Continue mirtazapine for appetite stimulation. #Anxiety/depression #Chronic pain syndrome #Insomnia ? Resume home gabapentin, hydroxyzine, mirtazapine. ? Continue melatonin as needed for sleep. Total time spent on discharge: 32 minutes on chart review, counseling, documentation, and direct care with patient. Exam Data for Last 24 hours Vital signs and Labs for Last 24 Hours: Temp Pulse Resp BP Pulse Ox O2 Del Method 97.6 F 82 16 123/65 95 Room Air 10/17/24 08:00 10/17/24 08:50 10/17/24 08:00 10/17/24 08:00 10/17/24 08:00 10/17/24 11:00 Laboratory Results - last 24 hr 10/17/24 06:25: WBC 5.2, RBC 4.27, Hgb 13.5, Hct 40.2, MCV 94.1, MCH 31.6 H, MCHC 33.6, RDW 12.9, Plt Count 313, MPV 9.7, Neut % (Auto) 45.6, Lymph % (Auto) 35.4, [place] % (Auto) 10.2 H, Eos % (Auto) 7.3, Baso % (Auto) 1.3, Neut # (Auto) 2.4, Lymph # (Auto) 1.8, [place] # (Auto) 0.5, Eos # (Auto) 0.4, Baso # (Auto) 0.1, Sodium 135 L, Potassium 3.9, Chloride 102, Carbon Dioxide 30, Anion Gap 6.9, BUN 15 D, Creatinine 0.60, Estimated Creat Clear 36, Estimated GFR 98, Est GFR ( Amer) 119, Glucose 89, Calcium 9.3, Magnesium 1.8, Ferritin 157, Total Bilirubin 0.2, AST 24, ALT 19, Alkaline Phosphatase 51, Total Protein 6.4, Albumin 4.0, Globulin 2.4, Albumin/Globulin Ratio 1.7, Folate > 20.00, TSH 3.79, Free T4 1.07 I & O for Last 24 hours: Intake & Output 10/14/24 10/15/24 10/16/24 10/17/24 23:59 23:59 23:59 23:59 Intake Total 1470 / 1470 1155 / 1155 420 / 420 Output Total 300 / 300 1500 / 1500 1350 / 1350 1040 / 1040 Balance -300 / -120 -30 / -30 -195 / -195 -620 / -620 Weight 44.225 kg 45.7 kg 45.019 kg 45.12 kg Microbiology Reports for the Last 24 Hours: Microbiology 10/15/24 13:00 Sputum - Expectorated Sputum Gram Stain - Final 10/15/24 13:00 Sputum - Expectorated Sputum Sputum Culture - Final 10/14/24 17:23 Blood Blood Culture - Preliminary NO GROWTH AFTER 48 HOURS 10/14/24 17:23 Blood Blood Culture - Preliminary NO GROWTH AFTER 48 HOURS Results Data Completed and Pending Labs on day of discharge: Labs from last 24 hours 10/17/24 06:25 WBC 5.2 RBC 4.27 Hgb 13.5 Hct 40.2 MCV 94.1 MCH 31.6 H MCHC 33.6 RDW 12.9 Plt Count 313 MPV 9.7 Neut % (Auto) 45.6 Lymph % (Auto) 35.4 [place] % (Auto) 10.2 H Eos % (Auto) 7.3 Baso % (Auto) 1.3 Neut # (Auto) 2.4 Lymph # (Auto) 1.8 [place] # (Auto) 0.5 Eos # (Auto) 0.4 Baso # (Auto) 0.1 Sodium 135 L Potassium 3.9 Chloride 102 Carbon Dioxide 30 Anion Gap 6.9 BUN 15 D Creatinine 0.60 Estimated Creat Clear 36 Estimated GFR 98 Est GFR ( Amer) 119 Glucose 89 Calcium 9.3 Magnesium 1.8 Ferritin 157 Total Bilirubin 0.2 AST 24 ALT 19 Alkaline Phosphatase 51 Total Protein 6.4 Albumin 4.0 Globulin 2.4 Albumin/Globulin Ratio 1.7 Folate > 20.00 TSH 3.79 Free T4 1.07 Preliminary micro results at discharge 10/14/24 17:23 Blood Culture - Preliminary Blood NO GROWTH AFTER 48 HOURS 10/14/24 17:23 Blood Culture - Preliminary Blood NO GROWTH AFTER 48 HOURS DS: Diagnosis Discharge Diagnosis (1) Left displaced femoral neck fracture: Status: Resolved Code(s): S72.002A - Fracture of unspecified part of neck of left femur, initial encounter for closed fracture Problem details: s/p L hemiarthroplasty DOS: 07/21/24 (2) Declining functional status: Status: Acute Code(s): R53.81 - Other malaise Meds Home Medications and Allergies Home Medications ?Medication ?Instructions ?Recorded ?Confirmed ?Type multivitamin 1 tab PO DAILY 11/17/23 10/14/24 History gabapentin 300 mg capsule 300 mg PO 1200 07/20/24 10/15/24 History gabapentin 300 mg capsule 600 mg PO HS 07/21/24 10/14/24 History buspirone 5 mg tablet 5 mg PO BID 10/14/24 10/15/24 History mirtazapine 30 mg tablet 30 mg PO HS 10/15/24 10/15/24 History cefdinir 300 mg capsule 300 mg PO BID 2 days #4 caps 10/17/24 Rx ipratropium 0.5 mg-albuterol 3 mg 3 ml inhalation Q6HP PRN Shortness 10/17/24 Rx (2.5 mg base)/3 mL nebulization Of Breath 30 days #90 mL soln New Prescriptions to Start Prescriptions: cefdinir Ambrocio Saul ipratropium-albuterol Ambrocio Saul Allergies Allergy/AdvReac Type Severity Reaction Status Date / Time Sulfa (Sulfonamide Allergy Unknown Hives Verified 09/07/24 15:06 Antibiotics) Discharge Plan Disposition Patient Disposition: er SNF Condition: Fair Discharge Order Discharge Orders: Discharge Order (Routine); Ordered 10/17/24 Ordered By: Ambrocio Saul Follow up Plan Prescriptions/Medication Reconciliation: New cefdinir 300 mg capsule 300 mg PO BID 2 Days Qty: 4 0RF Rx Instructions: Start 10/18/24. ipratropium-albuterol 0.5 mg-3 mg(2.5 mg base)/3 mL Solution For Nebulization 3 ml inhalation Q6HP PRN (Reason: Shortness Of Breath) 30 Days Qty: 90 0RF Continued multivitamin Tablet 1 tab PO DAILY gabapentin 300 mg capsule 300 mg PO 1200 Rx Instructions: takes around noon gabapentin 300 mg capsule 600 mg PO HS buspirone 5 mg tablet 5 mg PO BID mirtazapine 30 mg tablet 30 mg PO HS Problem Reconciliation Problems Reviewed?: Yes Patient Discharge Instructions Patient Instructions: DI for Pneumonia -- Adult, DI for Failure to Thrive, Stop Light Pneumonia Print Language: Sami Providers Primary Care Provider: Lawson Yarbrough Admit Provider: Ambrocio Saul Attending Provider: Ambrocio Saul
[2024-10-17 12:00] VITALS: BP 131/69; PULSE 80; RESP 16; TEMP 36.6; O2SAT 98
[2024-10-17] MEDS: AZITHROMYCIN 250MG TABLET 500 MG PO (13:14)
--- NOTE | 2024-10-17 14:18 | PC.NURSE ---
REPORT GIVEN TO SIGNITURE
[2024-10-17] MEDS: TRAMADOL 50MG TABLET 50 MG PO (14:23)
== END 2024-10-17 15:16 ==
LOC: ER 16:09 → 2ND 17:28
PROVIDERS: Nurse Practitioner; Admitting Provider Student in an Organized Health Care Education/Training Program; Emergency Provider Emergency Medicine; PCP Internal Medicine Adolescent Medicine; Visit Provider Student in an Organized Health Care Education/Training Program
DX: J18.9 Pneumonia, unspecified organism (principal); R53.81 Other malaise; S72.002D Fracture of unspecified part of neck of left femur, subsequent encounter for closed fracture with routine healing; J44.9 Chronic obstructive pulmonary disease, unspecified; E43 Unspecified severe protein-calorie malnutrition; Z68.1 Body mass index [BMI] 19.9 or less, adult; Z88.2 Allergy status to sulfonamides; Z79.899 Other long term (current) drug therapy; Z79.51 Long term (current) use of inhaled steroids; R29.6 Repeated falls; F41.8 Other specified anxiety disorders; G89.4 Chronic pain syndrome; G47.00 Insomnia, unspecified; R64 Cachexia
CPT/HCPCS: 36415; 71045; 71275; 80053; 80061; 82728; 82746; 82803; 83605; 83735; 84439; 84443; 84484; 85025; 85378; 87040; 87070; 87205; 93005; 94640; 97166; 97530; 99285; G0378; J0456; J0696; J1650; J2405; J7050; J7620; Q9967

== ENCOUNTER 2025-04-08 14:04 | Emergency (ER) | payer MEDICARE, SELFPAY ==
--- OUTSIDE RECORDS SUMMARY | 2025-02-16 09:18 | XMS_ITS | Continuity of Care Document ---
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 Role Phone KEITH RICHARD Unavailable [phone] KEITH RICHARD Primary Attending KEITH RICHARD Admitting [facility] Primary Care ALLERGIES AND ADVERSE REACTIONS ALLERGIES AND ADVERSE REACTIONS Code System Allergy Substance Adverse Reaction Date Reaction (Severity) Comment Status Reported By Updated By No Known Allergies [id number] on February 14, 2025 3:20:44 AM UTC ASSESSMENTS Pulmonary aspiration ; Dysphagia ; Weakness present ; PROBLEMS PATIENT PROBLEMS Code Description/Comments Category Status Upda sherrie By [id number] Pulmonary aspiration active [id number] on February 05, 2025 7:27:01 PM UTC [id number] Dysphagia active [id number] on Feb 6:15:31 PM UTC [id number] Weakness present active [id number] on February 14, 2025 6:54:07 PM UTC RESULTS Patient: DALE SHAEVR Date of : 1950 LABORATORY RESULTS ORDER 300: UA AND MICRO/CULT IF INDICATED (LOINC: 62585-3) ORDER DATE: February 05, 2025 4:05:00 PM UTC Specimen Source: URINE Specimen Type: Urine specime n PERFORMING LAB: [facility] [id number] Result Comment: Final Result Date: February 05, 2025 4:59:00 PM UTC (TECH: MRB) LOINC TEST FLAG RESULT REFERENCE RANGE UPDA SHERRIE BY 5778-6 Color of Urine N yellow YELLOW Augus t 2024 4:59:00 PM UTC (TECH: MRB) 5767-9 Appearance of Urine N sl. hazy CLEAR February 05, 2025 4:59:00 PM UTC (TECH: MRB) 5792-7 Glucose [Mass/volume] in Urine by Test strip N NORM NORMAL February 05, 2025 4:59:00 PM UTC (TECH: MRB) 81015-7 Bilirubin.total [Mass/volume] in Urine by Automated test strip N NEGATIVE NEGATIVE February 05, 2025 4:59:00 PM UTC (TECH: MRB) 5797-6 Ketones [Mass/volume] in Urine by Test strip N 15 (1+) mg/dL NEGATIVE February 05, 2025 4:59:00 PM UTC (TECH: MRB) 2965-2 Specific gravity of Urine N 1.020 1.005 - 1.035 February 05, 2025 4:59:00 PM UTC (TECH: MRB) 87014-6 Erythrocytes [#/volume] in Urine by Automated test strip N 10 (TRACE) /mcL NEGATIVE February 05, 2025 4:59:00 PM UTC (TECH: MRB) 44872-7 pH of Urine by Automated test strip N 6.00 5.0 - 7.5 February 05, 2025 4:59:00 PM UTC (TECH: MRB) 84563-9 Protein [Presence] in Urine by Test strip N 15 (TRACE) mg/dL NEGATIVE February 05, 2025 4:59:00 PM UTC (TECH: MRB) 57409-7 Urobilinogen [Mass/volume] in Urine by Automated test strip N NORM NORMAL February 05, 2025 4:59:00 PM UTC (TECH: MRB) 04285-9 Nitrate [Presence] in Urine N NEGATIVE NEGATIVE February 05, 2025 4:59:00 PM UTC (TECH: MRB) 48220-2 Leukocytes [#/volume] in Urine by Test strip N NEGATIVE NEGATIVE February 05, 2025 4:59:00 PM UTC (TECH: MRB) 74385-8 Other elements in Urine sediment N NOT REQUIRED February 05, 2025 4:59:00 PM UTC (TECH: MRB) 39463-9 Microscopic observation [Identifier] in Urine sediment by Light microscopy N NO February 05, 2025 4:59:00 PM UTC (TECH: MRB) ORDER 400: CBC AUTO W DIFF ( LOINC: 75642-3) ORDER DATE: February 05, 2025 4:05:00 PM UTC Specimen Source: Whole Blood Specimen Type: Whole blood s ample PERFORMING LAB: [address] [id number] Result Comment: Final Result Date: February 05, 2025 4:32:00 PM UTC (TECH: MRB) LOINC TEST FLAG RESULT REFERENCE RANGE UPDA SHERRIE BY 6690-2 Leukocytes [#/volume] in Blood by Automated count N 7.5 10^3/uL 4.5 10^3/uL - 11.5 10^3/uL February 05, 2025 4:32:00 PM UTC (TECH: MRB) 789-8 Erythrocytes [#/volume] in Blood by Automated count L 4.06 10^6/uL 4.25 10^6/uL - 5.57 10^6/uL February 05, 2025 4:32:00 PM UTC (TECH: MRB) 718-7 Hemoglobin [Mass/volume] in Blood N 13.3 g/dL 12.0 g/dL - 15.7 g/dL February 05, 2025 4:32:00 PM UTC (TECH: MRB) 34296-7 Hematocrit [Volume Fraction] of Blood N 37.9 % 36.0 % - 47.0 % February 05, 2025 4:32:00 PM UTC (TECH: MRB) 787-2 Erythrocyte mean corpuscular volume [Entitic volume] by Automated count N 93.3 fl 80 fl - 95 fl February 05, 2025 4:32:00 PM UTC (TECH: MRB) 36881-0 Erythrocyte mean corpuscular hemoglobin [Entitic mass] in Blood from Fetus by Automated count N 32.8 pg 27.0 pg - 34.0 pg February 05, 2025 4:32:00 PM UTC (TECH: MRB) 43451-7 Erythrocyte mean corpuscular hemoglobin concentration [Mass/volume] in Blood from Fetus by Automated count N 35.1 g/dL 32.0 g/dL - 36.0 g/dL February 05, 2025 4:32:00 PM UTC (TECH: MRB) 89179-5 Platelets [#/volume] in Blood N 307 10^3/uL 150 10^3/uL - 450 10^3/uL February 05, 2025 4:32:00 PM UTC (TECH: MRB) 61902-1 Erythrocyte distribution width [Ratio] L 11.8 % 12.3 % - 15.1 % February 05, 2025 4:32:00 PM UTC (TECH: MRB) 15114-1 Platelet mean volume [Entitic volume] in Blood by Automated count N 9.8 fl 7.4 fl - 10.4 fl February 05, 2025 4:32:00 PM UTC (TECH: MRB) 11131-3 Granulocytes/100 leukocytes in Blood by Automated count H 79.7 % 40 % - 75 % February 05, 2025 4:32:00 PM UTC (TECH: MRB) 736-9 Lymphocytes/100 leukocytes in Blood by Automated count L 11.1 % 15 % - 57 % February 05, 2025 4:32:00 PM UTC (TECH: MRB) 5905-5 Monocytes/100 leukocytes in Blood by Automated count N 6.1 % 4.0 % - 12.0 % February 05, 2025 4:32:00 PM UTC (TECH: MRB) 713-8 Eosinophils/100 leukocytes in Blood by Automated count N 2.1 % 0.0 % - 4.0 % February 05, 2025 4:32:00 PM UTC (TECH: MRB) 706-2 Basophils/100 leukocytes in Blood by Automated count N 0.9 % 0.0 % - 1.0 % February 05, 2025 4:32:00 PM UTC (TECH: MRB) 27549-9 Immature granulocytes [#/volume] in Blood N 0.1 % 0.0 % - 0.8 % February 05, 2025 4:32:00 PM UTC (TECH: MRB) 68167-8 Granulocytes [#/volume] in Blood by Automated count N 5.98 10^3/uL February 05, 2025 4:32:00 PM UTC (TECH: MRB) 731-0 Lymphocytes [#/volume] in Blood by Automated count N 0.83 10^3/uL February 05, 2025 4:32:00 PM UTC (TECH: MRB) 742-7 Monocytes [#/volume] in Blood by Automated count N 0.46 10^3/uL February 05, 2025 4:32:00 PM UTC (TECH: MRB) 711-2 Eosinophils [#/volume] in Blood by Automated count N 0.16 10^3/uL February 05, 2025 4:32:00 PM UTC (TECH: MRB) 704-7 Basophils [#/volume] in Blood by Automated count N 0.07 10^3/uL February 05, 2025 4:32:00 PM UTC (TECH: MRB) 57562-8 Immature granulocytes [#/volume] in Blood N 0.01 10^3/uL February 05, 2025 4:32:00 PM UTC (TECH: MRB) 93261-1 Manual differential performed [Presence] in Blood N NO February 05, 2025 4:32:00 PM UTC (TECH: MRB) ORDER 500: COMP METABOLIC PA ISIDRA (LOINC: 72566-9) ORDER DATE: February 05, 2025 4:05:00 PM UTC Specimen Source: Plasma Specimen Type: Plasma specim en PERFORMING LAB: [address] [id number] Result Comment: Final Result Date: February 05, 2025 4:57:00 PM UTC (TECH: MRB) LOINC TEST FLAG RESULT REFERENCE RANGE UPDA SHERRIE BY 2951-2 Sodium [Moles/volume ] in Serum or Plasma N 144 mmol/L 136 mmol/L - 145 mmol/L February 05, 2025 4:57:00 PM UTC (TECH: MRB) 2823-3 Potassium [Moles/volume] in Serum or Plasma N 3.5 mmol/L 3.5 mmol/L - 5.1 mmol/L February 05, 2025 4:57:00 PM UTC (TECH: MRB) 2075-0 Chloride [Moles/volu me] in Serum or Plasma N 107 mmol/L 98 mmol/L - 107 mmol/L February 05, 2025 4:57:00 PM UTC (TECH: MRB) 2027-9 Carbon dioxide, tota l [Moles/volume] in Serum or Plasma N 27 mmol/L 21 mmol/L - 32 mmol/L February 05, 2025 4:57:00 PM UTC (TECH: MRB) 28906-9 Anion gap 3 in Serum or Plasma N 10.0 February 05, 2025 4:57:00 PM UTC (TECH: MRB) 2345-7 Glucose [Mass/volume ] in Serum or Plasma H 119 mg/dL 70 mg/dL - 110 mg/dL February 05, 2025 4:57:00 PM UTC (TECH: MRB) 3094-0 Urea nitrogen [Mass/volume] in Serum or Plasma H 21 mg/dL 7 mg/dL - 18 mg/dL February 05, 2025 4:57:00 PM UTC (TECH: MRB) 2160-0 Creatinine [Mass/volume] in Serum or Plasma N 0.6 mg/dL 0.6 mg/dL - 1.0 mg/dL February 05, 2025 4:57:00 PM UTC (TECH: MRB) 3097-3 Urea nitrogen/Creatinine [Mass Ratio] in Serum or Plasma H 35.0 9 - 21 February 05, 2025 4:57:00 PM UTC (TECH: MRB) 19719-6 Glomerular filtratio n rate/1.73 sq M.predicted by Creatinine-based formula (MDRD) N 95 mL/min >60 February 05, 2025 4:57:00 PM UTC (TECH: MRB) 33510-6 Osmolality of Serum or Plasma by calculated by sum of electrolytes H 303 mosm/kg 275 mosm/kg - 301 mosm/kg February 05, 2025 4:57:00 PM UTC (TECH: MRB) 2885-2 Protein [Mass/volume ] in Serum or Plasma N 7.7 g/dL 6.4 g/dL - 8.2 g/dL February 05, 2025 4:57:00 PM UTC (TECH: MRB) 1751-7 Albumin [Mass/volume ] in Serum or Plasma N 4.2 g/dL 3.4 g/dL - 5.0 g/dL February 05, 2025 4:57:00 PM UTC (TECH: MRB) 37298-8 Calcium [Mass/volume ] in Serum or Plasma N 9.3 mg/dL 8.5 mg/dL - 10.1 mg/dL February 05, 2025 4:57:00 PM UTC (TECH: MRB) 53988-6 Calcium [Mass/volume ] corrected for total protein in Serum or Plasma N 9.1 mg/dL 8.5 mg/dL - 10.1 mg/dL February 05, 2025 4:57:00 PM UT (TECH: MRB) 1975-2 Bilirubin.total [Mass/volume] in Serum or Plasma L 0.3 mg/dL 0.4 mg/dL - 1.5 mg/dL February 05, 2025 4:57:00 PM UTC (TECH: [employer]) 1920-8 Aspartate aminotransferase [Enzymatic activity/volume] in Serum or Plasma L 12 U/L 15 U/L - 37 U/L February 05, 2025 4:57:00 PM UT (TECH: MRB) 1742-6 Alanine aminotransferase [Enzymatic activity/volume] in Serum or Plasma N 18 U/L 12 U/L - 78 U/L February 05, 2025 4:57:00 PM UT (TECH: MRB) 6768-6 Alkaline phosphatase [Enzymatic activity/volume] in Serum or Plasma N 61 U/L 53 U/L - 141 U/L February 05, 2025 4:57:00 PM UT (TECH: MRB) ORDER 600: LIPASE (LOINC: 30 40-3) ORDER DATE: February 05, 2025 4:05:00 PM UT Specimen Source: Plasma Specimen Type: Plasma specim en PERFORMING LAB: [address] [id number] Result Comment: Final Result Date: February 05, 2025 4:57:00 PM UT (TECH: MRB) LOINC TEST FLAG RESULT REFERENCE RANGE UPDA SHERRIE BY 3040-3 Lipase [Enzymatic activity/volume] in Serum or Plasma N 41 U/L 16 U/L - 77 U/L February 05, 2025 4:57:00 PM UT (TECH: MRB) ORDER 700: TROPONIN QUANT (L OINC: 89696-5) ORDER DATE: February 05, 2025 4:05:00 PM UT Specimen Source: Plasma Specimen Type: Plasma specim en PERFORMING LAB: [address] [id number] Result Comment: Final Result Date: February 05, 2025 4:50:00 PM UTC (TECH: MRB) LOINC TEST FLAG RESULT [place] [address]-4 Troponin I.cardiac panel - Serum or Plasma by High sensitivity method N 4 ng/L 0 ng/L - 51 ng/L February 05 4:50:00 PM UTC (TECH: MRB) ORDER 800: LACTIC ACID (LOIN C: 42011-6) ORDER DATE: February 05, 2025 4:05:00 PM UTC Specimen Source: Serum/Plasm a Specimen Type: Acellular blo od (serum or plasma) specimen PERFORMING LAB: [address] [id number] Result Comment: Final Result Date: February 05, 2025 4:51:00 PM UTC (TECH: MRB) LOINC TEST FLAG RESULT [place] [address]-8 Lactate [Mass/volume] in Serum or Plasma N 1.7 mmole/L 0.4 mmole/L - 2.0 mmole/L February 05, 2025 4:51:00 PM UTC (TECH: MRB) ORDER 900: PROCALCITONIN (LO INC: 78677-2) ORDER DATE: February 05, 2025 4:05:00 PM UTC Specimen Source: Serum/Plasm a Specimen Type: Acellular blo od (serum or plasma) specimen PERFORMING LAB: [address] [id number] Result Comment: Final Result Date: February 05, 2025 4:59:00 PM UT (TECH: MRB) LOINC TEST FLAG RESULT [place] [address]-7 Procalcitonin [Mass/volume] in Serum or Plasma N <0.05 ng/ml 0.00 ng/ml - 0.5 ng/ml February 05, 2025 4:59:00 PM UTC (TECH: MRB) ORDER 1200: D-DIMER QUANTITA TIVE (LOINC: 7799-0) ORDER DATE: February 05, 2025 5:45:00 PM UTC Specimen Source: Plasma Specimen Type: Plasma specim en PERFORMING LAB: [address] [id number] Result Comment: Final Result Date: February 05, 2025 6:23:00 PM UTC (TECH: MRB) LOINC TEST FLAG RESULT REFERENCE RANGE UPDA SHERRIE BY 7799-0 Fibrin D-dimer [Units/volume] in Platelet poor plasma HH 713 ng/mL 0 ng/mL - 500 ng/mL February 05, 2025 6:23:00 PM UT (TECH: MRB) ORDER 2300: BASIC METABOLIC PANEL (LOINC: 53248-6) ORDER DATE: February 05, 2025 7:29:00 PM UT Specimen Source: Serum/Plasm a Specimen Type: Acellular blo od (serum or plasma) specimen PERFORMING LAB: [address] [id number] Result Comment: Final Result Date: February 06, 2025 9:02:00 AM [facility] (TECH: KSM) LOINC TEST FLAG RESULT REFERENCE RANGE UPDA SHERRIE BY 2951-2 Sodium [Moles/volume] in Serum or Plasma N 142 mmol/L 136 mmol/L - 145 mmol/L February 06, 2025 9:02:00 AM [facility] (TECH: KSM) 2823-3 Potassium [Moles/volume] in Serum or Plasma L 3.2 mmol/L 3.5 mmol/L - 5.1 mmol/L February 06, 2025 9:02:00 AM UT (TECH: KSM) 5-0 Chloride [Moles/volume] in Serum or Plasma H 108 mmol/L 98 mmol/L - 107 mmol/L February 06, 2025 9:02:00 AM UT (TECH: KSM) 2027-9 Carbon dioxide, total [Moles/volume] in Serum or Plasma N 27 mmol/L 21 mmol/L - 32 mmol/L February 06, 2025 8:50:00 AM [facility] (TECH: KSM) 56708-6 Anion gap 3 in Serum or Plasma N 7.0 February 06, 2025 9:02:00 AM [facility] (TECH: KSM) 2345-7 Glucose [Mass/volume] in Serum or Plasma N 101 mg/dL 70 mg/dL - 110 mg/dL February 06, 2025 8:50:00 AM UT (TECH: KSM) 3094-0 Urea nitrogen [Mass/volume] in Serum or Plasma N 13 mg/dL 7 mg/dL - 18 mg/dL February 06, 2025 8:50:00 AM UT (TECH: KSM) 2160-0 Creatinine [Mass/volume] in Serum or Plasma L 0.4 mg/dL 0.6 mg/dL - 1.0 mg/dL February 06, 2025 8:50:00 AM UT (TECH: [employer]) 3097-3 Urea nitrogen/Creatinine [Mass Ratio] in Serum or Plasma H 32.5 9 - February 06, 2025 8:50:00 AM UT (TECH: [employer]) 12256-7 Glomerular filtration rate/1.73 sq M.predicted by Creatinine-based formula (MDRD) N 105 mL/min >60 February 06, 2025 8:50:00 AM UTC (TECH: [employer]) 24972-2 Osmolality of Serum or Plasma by calculated by sum of electrolytes N 295 mosm/kg 275 mosm/kg - 301 mosm/kg February 06, 2025 9:02:00 AM UT (TECH: [employer]) 53198-6 Calcium [Mass/volume] in Serum or Plasma L 8.2 mg/dL 8.5 mg/dL - 10.1 mg/dL February 06, 2025 8:50:00 AM [facility] (TECH: [employer]) ORDER 2400: CBC AUTO W DIFF (LOINC: 47158-2) ORDER DATE: February 05, 2025 7:29:00 PM UT Specimen Source: Whole Blood Specimen Type: Whole blood s ample PERFORMING LAB: [address] [id number] Result Comment: Final Result Date: February 06, 2025 9:11:00 AM [facility] (TECH: [employer]) LOINC TEST FLAG RESULT REFERENCE RANGE UPDA SHERRIE BY 6690-2 Leukocytes [#/volume] in Blood by Automated count N 5.8 10^3/uL 4.5 10^3/uL - 11.5 10^3/uL February 06, 2025 9:11:00 AM UT (TECH: [employer]) 789-8 Erythrocytes [#/volume] in Blood by Automated count L 3.38 10^6/uL 4.25 10^6/uL - 5.57 10^6/uL February 06, 2025 9:11:00 AM [facility] (TECH: [employer]) 718-7 Hemoglobin [Mass/volume] in Blood L 11.0 g/dL 12.0 g/dL - 15.7 g/dL February 06, 2025 9:11:00 AM [facility] (TECH: [employer]) 73300-9 Hematocrit [Volume Fraction] of Blood L 32.1 % 36.0 % - 47.0 % February 06, 2025 9:11:00 AM UTC (TECH: [employer]) 787-2 Erythrocyte mean corpuscular volume [Entitic volume] by Automated count N 95.0 fl 80 fl - 95 fl February 06, 2025 9:11:00 AM UTC (TECH: [employer]) 47613-3 Erythrocyte mean corpuscular hemoglobin [Entitic mass] in Blood from Fetus by Automated count N 32.5 pg 27.0 pg - 34.0 pg February 06, 2025 9:11:00 AM UTC (TECH: [employer]) 04628-0 Erythrocyte mean corpuscular hemoglobin concentration [Mass/volume] in Blood from Fetus by Automated count N 34.3 g/dL 32.0 g/dL - 36.0 g/dL February 06, 2025 9:11:00 AM UTC (TECH: [employer]) 46514-2 Platelets [#/volume] in Blood N 263 10^3/uL 150 10^3/uL - 450 10^3/uL February 06, 2025 9:11:00 AM UTC (TECH: [employer]) 06642-1 Erythrocyte distribution width [Ratio] L 11.9 % 12.3 % - 15.1 % February 06, 2025 9:11:00 AM UTC (TECH: [employer]) 65503-8 Platelet mean volume [Entitic volume] in Blood by Automated count N 10.1 fl 7.4 fl - 10.4 fl February 06, 2025 9:11:00 AM UTC (TECH: [employer]) 22134-6 Granulocytes/100 leukocytes in Blood by Automated count N 46.7 % 40 % - 75 % February 06, 2025 9:11:00 AM UTC (TECH: [employer]) 736-9 Lymphocytes/100 leukocytes in Blood by Automated count N 32.4 % 15 % - 57 % February 06, 2025 9:11:00 AM UTC (TECH: [employer]) 5905-5 Monocytes/100 leukocytes in Blood by Automated count N 10.1 % 4.0 % - 12.0 % February 06, 2025 9:11:00 AM UTC (TECH: [employer]) 713-8 Eosinophils/100 leukocytes in Blood by Automated count H 8.9 % 0.0 % - 4.0 % February 06, 2025 9:11:00 AM UTC (TECH: [facility]) 706-2 Basophils/100 leukocytes in Blood by Automated count N 1.0 % 0.0 % - 1.0 % February 06, 2025 9:11:00 AM UTC (TECH: KSM) 47254-8 Immature granulocytes [#/volume] in Blood H 0.9 % 0.0 % - 0.8 % February 06, 2025 9:11:00 AM UTC (TECH: KSM) 34713-2 Granulocytes [#/volume] in Blood by Automated count N 2.72 10^3/uL February 06, 2025 9:11:00 AM UTC (TECH: KSM) 731-0 Lymphocytes [#/volume] in Blood by Automated count N 1.89 10^3/uL February 06, 2025 9:11:00 AM UTC (TECH: KSM) 742-7 Monocytes [#/volume] in Blood by Automated count N 0.59 10^3/uL February 06, 2025 9:11:00 AM UTC (TECH: KSM) 711-2 Eosinophils [#/volume] in Blood by Automated count N 0.52 10^3/uL February 06, 2025 9:11:00 AM UTC (TECH: KSM) 704-7 Basophils [#/volume] in Blood by Automated count N 0.06 10^3/uL February 06, 2025 9:11:00 AM UTC (TECH: KSM) 06107-9 Immature granulocytes [#/volume] in Blood N 0.05 10^3/uL February 06, 2025 9:11:00 AM UTC (TECH: KSM) 16301-1 Manual differential performed [Presence] in Blood N NO February 06, 2025 9:11:00 AM UTC (TECH: KSM) ORDER 2500: HEMOGLOBIN A1C ( LOINC: 4548-4) ORDER DATE: February 05, 2025 7:29:00 PM UTC Specimen Source: Whole Blood Specimen Type: Whole blood s ample PERFORMING LAB: [address] [id number] Result Comment: Final Result Date: February 06, 2025 9:24:00 AM UTC (TECH: KSM) LOINC TEST FLAG RESULT REFERENCE RANGE UPDA SHERRIE BY 4548-4 Hemoglobin A1c/Hemoglobin.tota l in Blood N 5.4 % 4.5 % - 6.2 % February 06, 2025 9:24:00 AM UTC (TECH: KSM) 09291-5 Glucose mean value [Mass/volume] in Blood Estimated from glycated hemoglobin N 108 mg/dl 82 mg/dl - 131 mg/dl February 06, 2025 9:24:00 AM UTC (TECH: KSM) ORDER 2600: MAGNESIUM (LOINC : 53113-2) ORDER DATE: February 05, 2025 7:29:00 PM UTC Specimen Source: Serum/Plasm a Specimen Type: Acellular blo od (serum or plasma) specimen PERFORMING LAB: [place] [id number] Result Comment: Final Result Date: February 06, 2025 8:50:00 AM UTC (TECH: KSM) LOINC TEST FLAG RESULT [place] [address]-4 Magnesium [Mass/volume] in Serum or Plasma N 1.8 mg/dL 1.8 mg/dL - 2.4 mg/dL February 06, 2025 8:50:00 AM UTC (TECH: KSM) ORDER 3300: GLUCOSE BLD METE R (LOINC: 03173-3) ORDER DATE: February 05, 2025 11:23:00 PM UTC Specimen Source: Whole Blood Specimen Type: Whole blood s ample PERFORMING LAB: [address] [id number] Result Comment: February 05 11:27:00 PM UTC Test performed by: [id number] ; Instrument: [id number] Final Result Date: February 05, 2025 11:23:00 PM UTC (TECH: HL7) LOINC TEST FLAG RESULT [place] [address]-3 Glucose [Mass/volume] in Capillary blood by Glucometer N 107 mg/dl 70 mg/dl - 115 mg/dl February 05, 2025 11:23:00 PM UTC (TECH: HL7) ORDER 3500: GLUCOSE BLD METE R (LOINC: 85498-4) ORDER DATE: February 06, 2025 3:50:00 AM UTC Specimen Source: Whole Blood Specimen Type: Whole blood s ample PERFORMING LAB: [address] [id number] Result Comment: February 06 3:56:00 AM UTC Test performed by: [id number] ; Instrument: [id number] Final Result Date: February 06, 2025 3:50:00 AM UTC (TECH: HL7) LOINC TEST FLAG RESULT [place] [address]-5 Glucose [Mass/volume] in Capillary blood by Glucometer H 127 mg/dl 70 mg/dl - 115 mg/dl February 06, 2025 3:50:00 AM UTC (TECH: HL7) ORDER 3700: TROPONIN I 1 JOSE R PROTOCOL (LOINC: 32688-4) ORDER DATE: February 06, 2025 8:16:00 AM UTC Specimen Source: Plasma Specimen Type: Plasma specim en PERFORMING LAB: [address] [id number] Result Comment: Final Result Date: February 06, 2025 8:49:00 AM UTC (TECH: [facility]) LOINC TEST FLAG [place]ULT [place] [address]-2 Troponin I.cardiac panel - Serum or Plasma by High sensitivity method N 6 ng/L 0 ng/L - 51 ng/L February 06 8:49:00 AM UTC (TECH: KSM) ORDER 3800: TROPONIN I 1 JOSE R PROTOCOL (LOINC: 57421-3) ORDER DATE: February 06, 2025 8:16:00 AM UTC Specimen Source: Plasma Specimen Type: Plasma specim en PERFORMING LAB: [address] [id number] Result Comment: Final Result Date: February 06, 2025 9:44:00 AM UTC (TECH: [facility]) LOINC TEST FLAG RESULT [place] [address]-8 Troponin I.cardiac panel - Serum or Plasma by High sensitivity method N 6 ng/L 0 ng/L - 51 ng/L February 06 9:44:00 AM UTC (TECH: KSM) ORDER 3900: TROPONIN I 3 JOSE R PROTOCOL (LOINC: 11739-7) ORDER DATE: February 06, 2025 8:16:00 AM UTC Specimen Source: Plasma Specimen Type: Plasma specim en PERFORMING LAB: [address] [id number] Result Comment: Final Result Date: February 06, 2025 11:39:00 AM UTC (TECH: [facility]) LOINC TEST FLAG RESULT [place] [address]-6 Troponin I.cardiac [Mass/volume] in Serum or Plasma N 6 ng/L 0 ng/L - 51 ng/L February 06, 2025 11:39:00 AM UTC (TECH: KSM) ORDER 4100: GLUCOSE BLD METE R (LOINC: 32786-4) ORDER DATE: February 06, 2025 9:04:00 AM UTC Specimen Source: Whole Blood Specimen Type: Whole blood s ample PERFORMING LAB: [address] [id number] Result Comment: February 06 9:10:00 AM UT Test performed by: [id number] ; Instrument: [id number] Final Result Date: February 06, 2025 9:04:00 AM UT (TECH: HL7) LOINC TEST FLAG RESULT [place] [address]-6 Glucose [Mass/volume] in Capillary blood by Glucometer H 122 mg/dl 70 mg/dl - 115 mg/dl February 06, 2025 9:04:00 AM UT (TECH: HL7) ORDER 4900: BASIC METABOLIC PANEL (LOINC: 63938-1) ORDER DATE: February 06, 2025 3:27:00 PM UTC Specimen Source: Serum/Plasm a Specimen Type: Acellular blo od (serum or plasma) specimen PERFORMING LAB: [address] [id number] Result Comment: Final Result Date: February 07, 2025 9:46:00 AM UT (TECH: [facility]) LOINC TEST FLAG RESULT REFERENCE RANGE UPDA SHERRIE BY 2951-2 Sodium [Moles/volume] in Serum or Plasma N 144 mmol/L 136 mmol/L - 145 mmol/L February 07, 2025 9:46:00 AM UTC (TECH: KSM) 2823-3 Potassium [Moles/volume] in Serum or Plasma N 3.6 mmol/L 3.5 mmol/L - 5.1 mmol/L February 07, 2025 9:46:00 AM UTC (TECH: [facility]) 2075-0 Chloride [Moles/volume] in Serum or Plasma H 110 mmol/L 98 mmol/L - 107 mmol/L February 07, 2025 9:46:00 AM [facility] (TECH: [employer]) 8-9 Carbon dioxide, total [Moles/volume] in Serum or Plasma N 25 mmol/L 21 mmol/L - 32 mmol/L February 07, 2025 9:46:00 AM [facility] (TECH: [employer]) 35231-0 Anion gap 3 in Serum or Plasma N 9.0 February 07, 2025 9:46:00 AM [facility] (TECH: [employer]) 2345-7 Glucose [Mass/volume] in Serum or Plasma N 104 mg/dL 70 mg/dL - 110 mg/dL February 07, 2025 9:46:00 AM [facility] (TECH: [employer]) 3094-0 Urea nitrogen [Mass/volume] in Serum or Plasma L 5 mg/dL 7 mg/dL - 18 mg/dL February 07, 2025 9:46:00 AM [facility] (TECH: [employer]) 2160-0 Creatinine [Mass/volume] in Serum or Plasma L 0.4 mg/dL 0.6 mg/dL - 1.0 mg/dL February 07, 2025 9:46:00 AM [facility] (TECH: [employer]) 3097-3 Urea nitrogen/Creatinine [Mass Ratio] in Serum or Plasma N 12.5 9 - February 07, 2025 9:46:00 AM [facility] (TECH: [employer]) 29724-2 Glomerular filtration rate/1.73 sq M.predicted by Creatinine-based formula (MDRD) N 105 mL/min >60 February 07, 2025 9:46:00 AM [facility] (TECH: [employer]) 04053-4 Osmolality of Serum or Plasma by calculated by sum of electrolytes N 297 mosm/kg 275 mosm/kg - 301 mosm/kg February 07, 2025 9:46:00 AM [facility] (TECH: [employer]) 45417-2 Calcium [Mass/volume] in Serum or Plasma L 8.3 mg/dL 8.5 mg/dL - 10.1 mg/dL February 07, 2025 9:46:00 AM [facility] (TECH: [employer]) ORDER 5000: MAGNESIUM (LOINC : 52104-0) ORDER DATE: February 06, 2025 3:27:00 PM [place] Specimen Source: Serum/Plasm a Specimen Type: Acellular blo od (serum or plasma) specimen PERFORMING LAB: [address] [id number] Result Comment: Final Result Date: February 07, 2025 9:46:00 AM UTC (TECH: [facility]) LOINC TEST FLAG [place] [address]-6 Magnesium [Mass/volume] in Serum or Plasma N 1.8 mg/dL 1.8 mg/dL - 2.4 mg/dL February 07, 2025 9:46:00 AM UTC (TECH: [facility]) ORDER 5100: GLUCOSE BLD METE R (LOINC: 36253-2) ORDER DATE: February 06, 2025 5:28:00 PM UTC Specimen Source: Whole Blood Specimen Type: Whole blood s ample PERFORMING LAB: [address] [id number] Result Comment: February 06 5:32:00 PM UTC Test performed by: [id number] ; Instrument: [id number] Final Result Date: February 06, 2025 5:28:00 PM UTC (TECH: HL7) LOINC TEST FLAG [place] [address]-0 Glucose [Mass/volume] in Capillary blood by Glucometer H 121 mg/dl 70 mg/dl - 115 mg/dl February 06, 2025 5:28:00 PM UTC (TECH: HL7) ORDER 5300: GLUCOSE BLD METE R (LOINC: 22119-4) ORDER DATE: February 06, 2025 9:02:00 PM UTC Specimen Source: Whole Blood Specimen Type: Whole blood s ample PERFORMING LAB: [address] [id number] Result Comment: February 07, 2025 2:38:00 AM UTC Test performed by: [id number] ; Instrument: [id number] Final Result Date: February 06, 2025 9:02:00 PM UTC (TECH: HL7) LOINC TEST FLAG [place] [address]-8 Glucose [Mass/volume] in Capillary blood by Glucometer N 110 mg/dl 70 mg/dl - 115 mg/dl February 06, 2025 9:02:00 PM UTC (TECH: HL7) ORDER 5400: GLUCOSE BLD METE R (LOINC: 47647-5) ORDER DATE: February 07, 2025 2:40:00 AM UTC Specimen Source: Whole Blood Specimen Type: Whole blood s ample PERFORMING LAB: [address] [id number] Result Comment: February 07, 2025 7:27:00 AM UTC Test performed by: [id number] ; Instrument: [id number] Final Result Date: February 07, 2025 2:40:00 AM UTC (TECH: HL7) LOINC TEST FLAG RESULT [place] [address]-5 Glucose [Mass/volume] in Capillary blood by Glucometer N 114 mg/dl 70 mg/dl - 115 mg/dl February 07, 2025 2:40:00 AM UTC (TECH: HL7) ORDER 8600: CBC AUTO W DIFF (LOINC: 71090-4) ORDER DATE: February 12, 2025 2:02:00 PM UTC Specimen Source: Whole Blood Specimen Type: Whole blood s ample PERFORMING LAB: [address] [id number] Result Comment: Final Result Date: February 12, 2025 2:18:00 PM UTC (TECH: KSM) LOINC TEST FLAG RESULT REFERENCE RANGE UPDA SHERRIE BY 6690-2 Leukocytes [#/volume] in Blood by Automated count N 8.62 10^3/uL 4.5 10^3/uL - 11.5 10^3/uL February 12, 2025 2:18:00 PM UTC (TECH: KSM) 789-8 Erythrocytes [#/volume] in Blood by Automated count L 3.79 10^6/uL 4.25 10^6/uL - 5.57 10^6/uL February 12, 2025 2:18:00 PM UTC (TECH: KSM) 718-7 Hemoglobin [Mass/volume] in Blood N 12.3 g/dL 12.0 g/dL - 15.7 g/dL February 12, 2025 2:18:00 PM UTC (TECH: KSM) 97265-3 Hematocrit [Volume Fraction] of Blood N 36.2 % 36.0 % - 47.0 % February 12, 2025 2:18:00 PM UTC (TECH: KSM) 787-2 Erythrocyte mean corpuscular volume [Entitic volume] by Automated count H 95.5 fl 80 fl - 95 fl February 12, 2025 2:18:00 PM UTC (TECH: [employer]) 56050-7 Erythrocyte mean corpuscular hemoglobin [Entitic mass] in Blood from [place] by Automated count N 32.5 pg 27.0 pg - 34.0 pg February 12, 2025 2:18:00 PM UTC (TECH: [employer]) 76361-4 Erythrocyte mean corpuscular hemoglobin concentration [Mass/volume] in Blood from Fetus by Automated count N 34 g/dL 32.0 g/dL - 36.0 g/dL February 12, 2025 2:18:00 PM UTC (TECH: [employer]) 80416-2 Platelets [#/volume] in Blood N 239 10^3/uL 150 10^3/uL - 450 10^3/uL February 12, 2025 2:18:00 PM UTC (TECH: [employer]) 60072-1 Erythrocyte distribution width [Ratio] N 12.3 % 12.3 % - 15.1 % February 12, 2025 2:18:00 PM UTC (TECH: [employer]) 52767-4 Platelet mean volume [Entitic volume] in Blood by Automated count N 9.7 fl 7.4 fl - 10.4 fl February 12, 2025 2:18:00 PM UTC (TECH: [employer]) 23683-0 Granulocytes/100 leukocytes in Blood by Automated count H 77.7 % 40 % - 75 % February 12, 2025 2:18:00 PM UTC (TECH: [employer]) 736-9 Lymphocytes/100 leukocytes in Blood by Automated count L 10.0 % 15 % - 57 % February 12, 2025 2:18:00 PM UTC (TECH: [employer]) 5905-5 Monocytes/100 leukocytes in Blood by Automated count N 7.0 % 4.0 % - 12.0 % February 12, 2025 2:18:00 PM UTC (TECH: [employer]) 713-8 Eosinophils/100 leukocytes in Blood by Automated count H 4.6 % 0.0 % - 4.0 % February 12, 2025 2:18:00 PM UTC (TECH: [employer]) 706-2 Basophils/100 leukocytes in Blood by Automated count N 0.6 % 0.0 % - 1.0 % February 12, 2025 2:18:00 PM UTC (TECH: [employer]) 57529-4 Immature granulocytes [#/volume] in Blood N 0.1 % 0.0 % - 0.8 % February 12, 2025 2:18:00 PM UTC (TECH: [facility]) 92380-7 Granulocytes [#/volume] in Blood by Automated count N 6.7 10^3/uL February 12, 2025 2:18:00 PM UTC (TECH: KSM) 731-0 Lymphocytes [#/volume] in Blood by Automated count N 0.86 10^3/uL February 12, 2025 2:18:00 PM UTC (TECH: KSM) 742-7 Monocytes [#/volume] in Blood by Automated count N 0.6 10^3/uL February 12, 2025 2:18:00 PM UTC (TECH: [facility]) 711-2 Eosinophils [#/volume] in Blood by Automated count N 0.4 10^3/uL February 12, 2025 2:18:00 PM UTC (TECH: [employer]) 704-7 Basophils [#/volume] in Blood by Automated count N 0.05 10^3/uL February 12, 2025 2:18:00 PM UTC (TECH: [employer]) 03652-9 Immature granulocytes [#/volume] in Blood N 0.01 10^3/uL February 12, 2025 2:18:00 PM UTC (TECH: [employer]) 82437-9 Manual differential performed [Presence] in Blood N NO February 12, 2025 2:18:00 PM UTC (TECH: [employer]) ORDER 8700: COMP METABOLIC P EFRAÍN (LOINC: 80727-0) ORDER DATE: February 12, 2025 2:02:00 PM UTC Specimen Source: Serum/Plasm a Specimen Type: Acellular blo od (serum or plasma) specimen PERFORMING LAB: [address] [id number] Result Comment: Final Result Date: February 12, 2025 2:42:00 PM UTC (TECH: [employer]) LOINC TEST FLAG RESULT REFERENCE RANGE UPDA SHERRIE BY 2951-2 Sodium [Moles/volume ] in Serum or Plasma N 142 mmol/L 136 mmol/L - 145 mmol/L February 12, 2025 2:42:00 PM UTC (TECH: [employer]) 2823-3 Potassium [Moles/volume] in Serum or Plasma N 4.3 mmol/L 3.5 mmol/L - 5.1 mmol/L February 12, 2025 2:42:00 PM UT (TECH: [employer]) 2075-0 Chloride [Moles/volume] in Serum or Plasma N 107 mmol/L 98 mmol/L - 107 mmol/L February 12, 2025 2:42:00 PM UTC (TECH: [employer]) 2027-9 Carbon dioxide, tota l [Moles/volume] in Serum or Plasma N 26 mmol/L 21 mmol/L - 32 mmol/L February 12, 2025 2:42:00 PM UT (TECH: [employer]) 91709-6 Anion gap 3 in Serum or Plasma N 9.0 February 12, 2025 2:42:00 PM UT (TECH: [employer]) 2345-7 Glucose [Mass/volume ] in Serum or Plasma H 120 mg/dL 70 mg/dL - 110 mg/dL February 12, 2025 2:42:00 PM UT (TECH: [employer]) 3094-0 Urea nitrogen [Mass/volume] in Serum or Plasma N 13 mg/dL 7 mg/dL - 18 mg/dL February 12, 2025 2:42:00 PM UT ([employer]: [employer]) 2160-0 Creatinine [Mass/volume] in Serum or Plasma L 0.5 mg/dL 0.6 mg/dL - 1.0 mg/dL February 12, 2025 2:42:00 PM UT (TECH: [employer]) 3097-3 Urea nitrogen/Creatinine [Mass Ratio] in Serum or Plasma H 26.0 - February 12, 2025 2:42:00 PM UT (TECH: [employer]) 70921-7 Glomerular filtratio n rate/1.73 sq M.predicted by Creatinine-based formula (MDRD) N 100 mL/min >60 February 12, 2025 2:42:00 PM UT (TECH: [employer]) 37164-4 Osmolality of Serum or Plasma by calculated by sum of electrolytes N 296 mosm/kg 275 mosm/kg - 301 mosm/kg February 12, 2025 2:42:00 PM UT (TECH: [employer]) 2885-2 Protein [Mass/volume ] in Serum or Plasma N 6.4 g/dL 6.4 g/dL - 8.2 g/dL February 12, 2025 2:42:00 PM UT (TECH: [employer]) 1751-7 Albumin [Mass/volume ] in Serum or Plasma L 3.2 g/dL 3.4 g/dL - 5.0 g/dL February 12, 2025 2:42:00 PM UT (TECH: [employer]) 55687-2 Calcium [Mass/volume ] in Serum or Plasma N 8.5 mg/dL 8.5 mg/dL - 10.1 mg/dL February 12, 2025 2:42:00 PM UT (TECH: [employer]) 01622-2 Calcium [Mass/volume ] corrected for total protein in Serum or Plasma N 9.1 mg/dL 8.5 mg/dL - 10.1 mg/dL February 12, 2025 2:42:00 PM UT (TECH: [employer]) 1975-2 Bilirubin.total [Mass/volume] in Serum or Plasma L 0.2 mg/dL 0.4 mg/dL - 1.5 mg/dL February 12, 2025 2:42:00 PM UT (TECH: [employer]) 1920-8 Aspartate aminotransferase [Enzymatic activity/volume] in Serum or Plasma L 11 U/L 15 U/L - 37 U/L February 12, 2025 2:42:00 PM UT (TECH: [employer]) 1742-6 Alanine aminotransferase [Enzymatic activity/volume] in Serum or Plasma N 16 U/L 12 U/L - 78 U/L February 12, 2025 2:42:00 PM UT (TECH: [employer]) 6768-6 Alkaline phosphatase [Enzymatic activity/volume] in Serum or Plasma N 53 U/L 53 U/L - 141 U/L February 12, 2025 2:42:00 PM UT (TECH: [employer]) ORDER 8800: MAGNESIUM (LOINC : 95449-6) ORDER DATE: February 12, 2025 2:02:00 PM UT Specimen Source: Serum/Plasm a Specimen Type: Acellular blo od (serum or plasma) specimen PERFORMING LAB: [address] [id number] Result Comment: Final Result Date: February 12, 2025 2:41:00 PM UT (TECH: [employer]) LOINC TEST FLAG RESULT [place] [address]-8 Magnesium [Mass/volume] in Serum or Plasma N 2.0 mg/dL 1.8 mg/dL - 2.4 mg/dL February 12, 2025 2:41:00 PM [facility] (TECH: DAREK) LABORATORY NARRATIVE RESULTS Information is not available RADIOLOGY RESULTS ORDER 100: CT BRAIN HEAD WO (LOINC: 90491-6) ORDER DATE: February 05, 2025 4:05:00 PM UT PERFORMING LAB: [address] [id number] Final Result Date: January 4:48:[address] [place] [address] Name: SIVAKUMAR HUNTER Exam Date: 02/05/2025 : 1950 Age 74 years Gender: F Physician: Facility: [facility] Facility HSV: Outpatient Exam: CT BRAIN HEAD WO CT HEAD WITHOUT IV CONTRAST, 02/05/2025 11:48 AM CDT INDICATION: Declining State / weakness TECHNIQUE: Axial unenhanced images with sagittal and coronal reformats were obtained from the vertex of the skull through foramen magnum. Dose modulation, automated exposure control, and/or iterative reconstruction technique used for dose reduction. Comparison is made to CT head of 01/08/2024. FINDINGS: Sensitivity of the exam is decreased by poor pshovg-jy-lgesz ratio. The cerebral ventricles are of normal size and configuration. No abnormal mass or hematoma is identified. Subtle decreased attenuation in the bilateral periventricular white matter is stable. No vascular-distribution infarct is seen and the leos-white matter junction is maintained. The skull is intact. A right ocular lens replacement is noted. IMPRESSION: Stable chronic microvascular ischemic changes. No acute abnormality is identified on examination that is slightly limited by technique. Electronically signed by: Jayden Dugan MD 02/05/2025 12:55 PM EDT Dictated By: Jayden Dugan Transcribed By: Transcribed On: 02/05/2025 12:48 PM Electronically signed by: Jayden Dugan 02/05/2025 Thank you for referring SIVAKUMAR HUNTER to [facility]. Legally authenticated by AMPARO WAY MD 2025-02-05 12:48:59 ORDER 200: CT CHEST WO CONTR AST (LOINC: 67440-1) ORDER DATE: February 05, 2025 4:05:00 PM [facility] PERFORMING LAB: [address] [id number] Final Result Date: January 4:49:[address] [place] [address] Name: SIVAKUMAR HUNTER Exam Date: 02/05/2025 : 1950 Age 74 years Gender: F Physician: Facility: [facility] Facility HSV: Outpatient Exam: CT CHEST WO CONTRAST CT CHEST WITHOUT CONTRAST CLINICAL HISTORY: Cough, congestion in smoker. COMPARISON: 08/13/2023. TECHNIQUE: CT images were obtained from the lung apices through the bases without intravenous contrast. Coronal and sagittal reformatted images are included for review. Axial lung MIP reformats also included. FINDINGS: Evaluation of solid viscera and vasculature is limited in the absence of contrast. Severe paraseptal and centrilobular pulmonary emphysema. No consolidative opacities or suspicious noncalcified pulmonary nodules. No pleural effusions. Central airways patent. Normal heart size. No pericardial effusion. The aorta is without aneurysmal dilatation. Atherosclerotic calcifications. No gross lymphadenopathy. Calcified mediastinal lymph nodes and left lung granulomata compatible with old granulomatous disease. Visualized abdominal contents demonstrate a grossly unremarkable noncontrasted appearance. Chronic appearing compression deformities of T6 superior endplate of L1, L2, and L3. IMPRESSION: No acute findings on noncontrasted chest CT. Pulmonary emphysema. Additional incidental findings as above including granulomatous disease and chronic compression deformities of the spine. Electronically signed by: Petrona Garcia MD 02/05/2025 01:15 PM EDT Dictated By: Petrona Garcia Transcribed By: Transcribed On: 02/05/2025 12:49 PM Electronically signed by: Petrona Garcia 02/05/2025 Thank you for referring SIVAKUMAR HUNTER to [facility]. Legally authenticated by DARLEEN CORRAL MD 2025-02-05 12:49:03 ORDER 4600: ECHOCARDIOGRAM ( LOINC: 36807-5) ORDER DATE: February 06, 2025 2:55:00 PM [place] PERFORMING LAB: [address] [id number] Final Result Date: February 11, 2025 2:37:17 PM UTC [address] [place] [address] Name: SIVAKUMAR HUNTER Exam Date: 02/06/2025 : 1950 Age 74 years Gender: F Physician: KEITH RICHARD Facility: [facility] Facility HSV: Outpatient Exam: ECHOCARDIOGRAM Conclusions: 1. Normal left ventricular dimension. 2. Normal left ventricular systolic function. 3. Estimated left ventricular ejection fraction is 55-60%. 4. poorly visualized heart valves. 5. Poor quality study. recommend other image modality if clinically indicated. Findings: Left Ventricle:Normal left ventricular dimension. Normal left ventricular systolic function. Electronically signed SHAE FERRARA MD 02/10/25 8:53 AM Study Data 2D Measurements M-MODE Measurements Mitral Valve Tricuspid Valve Aortic Valve Pulmonic Valve Report for SIVAKUMAR HUNTER [id number] on 02/09/25 Dictated By: SHAE FERRARA Transcribed By: Yola Tillman Transcribed On: 02/11/2025 10:37 AM Electronically signed by: SHAE FERRARA 02/11/2025 Thank you for referring SIVAKUMAR HUNTER to [facility]. Legally authenticated by JOSIAS KAUFMAN MD 2025-02-11 10:41:39 ORDER 6200: MODIFIED BARIUM SWALLOW (LOINC: 45955-2) ORDER DATE: February 08, 2025 3:52:00 PM [place] PERFORMING LAB: [address] [id number] Final Result Date: February 09, 2025 3:50:[address] [place] [address] Name: SIVAKUMAR HUNTER Exam Date: 02/08/2025 : 1950 Age 74 years Gender: F Physician: KEITH RICHARD Facility: [facility] Facility HSV: Inpatient Exam: MODIFIED BARIUM SWALLOW MODIFIED BARIUM SWALLOW HISTORY: Dysphagia PROCEDURE: The patient was observed swallowing different consistencies of barium under fluoroscopy. The examination was performed in conjunction with the speech pathologist. FINDINGS: Fluoroscopy was provided for the speech pathologist to evaluate the swallowing mechanism. The patient was given several different consistencies of barium with a swallow was visualized fluoroscopically. There is no penetration or aspiration with thin, nectar, honey, puree and mixed consistencies. The report of the speech pathologist should be consulted prior to making dietary decisions. RADIATION DOSE: Radiation exposure in reference to Air Kerma: 17.161 mGy. FLUOROSCOPY TIME: 103.1 seconds . VIDEO RADIOGRAPHY FILMS: 9 Cine runs were submitted. Procedure was performed by Sarabjit Quinones PA-C under the supervision of Dr. Renzo Schmidt MD. IMPRESSION: Modified barium swallow under fluoroscopic guidance. No significant episode of penetration or aspiration across all consistencies given. Please see speech pathologist's report for further details and recommendations. Electronically signed by: Renzo Schmidt MD 02/09/2025 05:08 PM EDT Dictated By: Renzo Schmidt Transcribed By: Transcribed On: 02/09/2025 11:50 AM Electronically signed by: Renzo Schmidt 02/09/2025 Thank you for referring SIVAKUMAR HUNTER to [facility]. Legally authenticated by DAVI MARTEL MD 2025-02-09 11:50:58 ORDER 7600: ABD KUB 1V (NUNOIN C: 27738-5) ORDER DATE: February 10, 2025 1:34:00 PM [facility] PERFORMING LAB: [address] [id number] Final Result Date: February 10, 2025 1:48:[address] [place] [address] Name: SIAVKUMAR HUNTER Exam Date: 02/10/2025 : 1950 Age 74 years Gender: F Physician: KEITH RICHARD Facility: [facility] Facility HSV: Inpatient Exam: ABD KUB 1V EXAM DESCRIPTION: ABD KUB 1V CLINICAL HISTORY: 74 years Female, NG Tube placement COMPARISON: None. FINDINGS: Enteric tube is noted with its tip below the diaphragm overlying the left upper quadrant. Mildly distended loops of small and large bowel noted in the visualized abdomen. No focal calcifications. Minor degenerative changes of the visualized thoracolumbar spine. The visualized lungs are clear without focal consolidation or pleural effusions. IMPRESSION: Enteric tube in satisfactory position. Electronically signed by: Marlon Miner MD 02/10/2025 09:51 AM EDT RP Dictated By: MARLON MINER Transcribed By: Transcribed On: 02/10/2025 9:48 AM Electronically signed by: MARLON MINER 02/10/2025 Thank you for referring SIVAKUMAR HUNTER to [facility]. Legally authenticated by ISIDRA MASON 2025-02-10 09:48:44 ORDER 7800: ABD KUB 1V (LOIN C: 64753-0) ORDER DATE: February 10, 2025 4:00:00 PM [facility] PERFORMING LAB: [address] [id number] Final Result Date: February 10, 2025 4:10:[address] [place] [address] Name: SIVAKUMAR HUNTER Exam Date: 02/10/2025 : 1950 Age 74 years Gender: F Physician: KEITH RICHARD Facility: [facility] Facility HSV: Inpatient Exam: ABD KUB 1V EXAMINATION: ABD KUB 1V CLINICAL INDICATION: doubhoff TECHNIQUE: One view, AP supine, x-ray of the abdomen was performed. COMPARISON: Plain radiographs of abdomen performed the same date at approximately 9:36 AM. FINDINGS: This study is limited due to technique. There is an enteric feeding tube with the distal tip projecting over the region of the stomach. Would recommend advancing 2 to 3 cm and reimaging. There is no small bowel or large bowel dilatation. There is no evidence of ileus or obstruction. There is a moderate amount of stool throughout the colon. IMPRESSION: Enteric feeding tube projecting over the region of the stomach as described above. Would recommend advancing and reimaging. Electronically signed by: Sohan Oseguera MD 02/10/2025 01:03 PM EDT Dictated By: Sohan Oseguera Transcribed By: Transcribed On: 02/10/2025 12:10 PM Electronically signed by: Sohan Oseguera 02/10/2025 Thank you for referring SIVAKUMAR HUNTER to [facility]. Legally authenticated by BENJI MARTIN MD 2025-02-10 12:10:00 ORDER 7900: KARUNA ZAVALA 1V ([facility] C: 09819-3) ORDER DATE: February 10, 2025 5:21:00 PM [facility] PERFORMING LAB: [address] [id number] Final Result Date: February 10, 2025 5:39:[address] [place] [address] Name: SIVAKUMAR HUNTER Exam Date: 02/10/2025 : 1950 Age 74 years Gender: F Physician: KEITH RICHARD Facility: [facility] Facility HSV: Inpatient Exam: KARUNA ZAVALA 1V EXAM DESCRIPTION: KARUNA ZAVALA 1V CLINICAL HISTORY: 74 years Female, tube placement COMPARISON: None. FINDINGS: Enteric tube in the second image appears to be in satisfactory position. Nonspecific nonobstructive bowel gas pattern. The visualized lungs are clear without focal consolidation, pleural effusions or pneumothorax. Cardiac size and central primary vasculature within normal limits. Vascular calcification is noted. Calcified lymph nodes in the mediastinum. Calcified granuloma in the left mid zone. IMPRESSION: Enteric tube in satisfactory position. Electronically signed by: Marlon Miner MD 02/10/2025 02:49 PM EDT RP Dictated By: MARLON MINER Transcribed By: Transcribed On: 02/10/2025 1:39 PM Electronically signed by: MARLON MINER 02/10/2025 Thank you for referring SIVAKUMAR HUNTER to [facility]. Legally authenticated by ISIDRA MASON 2025-02-10 13:39:00 PATHOLOGY NARRATIVE RESULTS Information is not available MICROBIOLOGY RESULTS No Micro Labs/Results Exist for Patient BLOOD ADMIN RESULTS Information is not available TREATMENT PLAN DISCHARGE MEDICATIONS Status RXNORM Medication Dose Route Frequency Dates Comments U pdated By Continued Centrum Adults Oral Tablet 1 TAB PER TUBE ONCE DAILY Prescribed : February 14, 2025 7:00:30 PM UTC [id number] on February 14, 2025 7:00:30 PM UTC Continued 441163 metoprolol tartrate(LOPR ESSOR) 12.5 MG PER TUBE TWICE A DAY Prescribed : February 14, 2025 7:00:30 PM UTC per PEG tube [id number] on February 14, 2025 7:00:30 PM UTC Continued 603806 famotidine (PEPCID) 20 MG PER TUBE TWICE A DAY Prescribed : February 14, 2025 7:00:30 PM UTC [id number] on February 14, 2025 7:00:30 PM UTC Continued 287081 Ibuprofen Oral Tablet 400 MG 1 TAB PER TUBE EVERY SIX HOURS NEEDED Prescribed : February 14, 2025 7:00:30 PM UTC per PEG tube [id number] on February 14, 2025 7:00:30 PM UTC Continued 994910 hydrOXYzine PAMOATE (VISTARIL) 25 MG ORAL THREE TIMES A DAY NEEDED Prescribed : February 14, 2025 7:00:30 PM UTC per PEG tube [id number] on February 14, 2025 7:00:30 PM UTC Continued 880667 NORCO 5-325 MG 1 TAB PER TUBE EVERY SIX HOURS NEEDED Prescribed : February 14, 2025 7:00:30 PM UTC per PEG tube [id number] on February 14, 2025 7:00:30 PM UTC Continued 665734 budesonide (PULMICORT) 0.5 MG/2ML 0.5 MG INHALED TWICE DAILY (RESPIRATO RY) Prescribed : February 14, 2025 6:50:17 PM UTC [id number] on February 14, 2025 6:50:17 PM UTC Continued 2595787 DUONEB 0.5-2.5 MG/3 ML 1 NEB INHALED EVERY FOUR HOURS NEEDED (RESPIRATO RY) Prescribed : February 14, 2025 6:50:17 PM UTC [id number] on February 14, 2025 6:50:17 PM UTC Continued 102672 Mirtazapine Oral Tablet 30 MG 30 MG PER TUBE AT BEDTIME Prescribed : February 14, 2025 7:00:30 PM UTC per PEG tube [id number] on February 14, 2025 7:00:30 PM UTC Continued 378567 Gabapentin Oral Capsule 300 MG 1 CAP PER TUBE THREE TIMES A DAY Prescribed : February 14, 2025 7:00:30 PM UTC [id number] on February 14, 2025 7:00:30 PM UTC Continued 675693 ACETAMINOPHEN EXTRA STRENGTH 500 MG ORAL THREE TIMES A DAY Prescribed : February 14, 2025 7:00:30 PM UTC per PEG tube [id number] on February 14, 2025 7:00:30 PM UTC PATIENT OPEN ORDERS Code System Descripti on Frequency Occurrenc es Priority Category [place] [address]-4 [facility] EKG study ONE TIME 0 Stat Augus t 2024 5:27:00 PM UTC ELIZABETH Ramos MD [id number] on February 05, 2025 5:27:00 PM UTC RFSNUT MEDHOST RFS - NUTRITION AL CONSULT ONE TIME 0 Routine February 05, 2025 9:22:00 PM UTC GUTIERRES-O RTEZ KEITH [id number] on February 05, 2025 9:22:00 PM UTC REQNUT [facility]HOST CONSULT SENIOR COMMERCIAL LOAN OFFICER ONE TIME 0 Routine February 05, 2025 9:22:00 PM UTC GUTIERRES-O RTEZ KEITH [id number] on February 05, 2025 9:22:00 PM UTC REQNUT [facility] CONSULT SENIOR COMMERCIAL LOAN OFFICER ONE TIME 0 Routine February 06, 2025 2:49:00 PM UTC GUTIERRES-O RTEZ KEITH [id number] on February 06, 2025 2:49:00 PM UTC REQNUT [facility]HOST CONSULT SENIOR COMMERCIAL LOAN OFFICER ONE TIME 0 Routine [facility] 2024 2:20:00 PM [place] Ramos MD [id number] on r 2024 2:20:00 PM UT SCHEDULED PROCEDURES Code System Description Status Scheduled Date Upd ated By Patient scheduled procedure information is not available. HOSPITAL COURSE HOSPITAL COURSE Note Title Discharge Summary Date Of Service February 14, 2025 7: 03:07 PM UT Created By [id number] on February 14, 2025 7:03:07 PM UT Signed By [id number] on February 14, 2025 7:16:04 PM UT The patient was diagnosed an d treated for...1. Aspiration into airway, pneumonia ruled out2. Dysphagia3. SVT4. Hypokalemia5. Weakness6. Dehydration7. Elevated d-dimer8. Brachial plexopathy9. COPD10. Underweight, BMI 14Advanced care planning - Full code. Surrogate MDM is her daughter.Treated with oxygen, DuoNebs.&Acirc; Made NPO and obtained RETAIL ANALYTICS MANAGER dysphagia evaluation, MBS which showed no significan aspiration but poor control of food boluses. High risk for future aspirations will continue NPO status at this time. Ongoing reassessments recommended with RETAIL ANALYTICS MANAGER.&Acirc; Dr. Andrea, gastroenterology, consulted who placed PEG tube placed 02/11/[address] Andrea. Receiving [facility] for enteral nutrition. Heart rate now controlled. Pain medication adjusted. Overall very deconditioned, especially since she was ambulatory just a few months ago. Will require rehab. If condition does not improve, will need neurology referral to r/o neurological pathology. She does have brachial plexopathy so left sided weakness is not new. MEDICATIONS HOME MEDICATIONS Status RXNORM [facility] Medication Dose Route Frequency Dates Comments Reported By Updated By Active [id number] 53071 89742 0 Gabapentin Capsule 300 MG 300.0 MG ORAL BID Last Dose: Take one capsule in the morning and one capsule at noon. Take 2 capsules @ bedtime. EXTPHAR [id number] on February 05, 2025 8:49:30 PM [facility] Active 887888 42172 25545 0 Gabapentin Oral Capsule 300 MG 600.0 ORAL BEDTIME Last Dose: EXTPHAR [id number] on February 05, 2025 8:50:04 PM [facility] Active 164980 25367 16548 2 megestrol acetate (MEGACE) 20.0 MG ORAL BID Last Dose: EXTPHAR [id number] on February 05, 2025 8:51:14 PM [place] Active 253906 47735 01837 3 Mirtazapine Oral Tablet 30 MG 30.0 MG ORAL BEDTIME Last Dose: EXTPHAR [id number] on February 05, 2025 10:05:28 PM UTC Active 763920 22467 18794 1 hydrOXYzine PAMOATE (VISTARIL) 25.0 MG ORAL TIDPRN Last Dose: EXTPHAR [id number] on 2024 6:47:07 PM UTC Active 938249 47532 75681 0 ibuprofen (MOTRIN) 600.0 MG ORAL DAILYPRN Last Dose: Take with food or milk EXTPHAR [id number] on February 05, 2025 10:05:28 PM UTC Active 718939 04742 41615 1 NORCO 5-325 MG 1.0 TAB PER TUBE Q6HPRN Last Dose: per PEG tube EXTPHAR [id number] on 2024 6:57:25 PM [place] Active 75355 56215 4 Centrum Adults Oral Tablet 1.0 TAB ORAL DAILY Last Dose: RELATIV [id number] on February 05, 2025 10:05:28 PM UT Active 575977 57821 05826 3 Buprenorphin e HCl-Naloxone HCl Sublingual Tablet Sublingual 8-2 MG 1.0 ORAL DAILY Last Dose: Patient gets from [facility] in [place] PATIENT [id number] on 2024 7:55:34 PM UTC DISCHARGE MEDICATIONS Status RXNORM [facility] Medication Dose Route Frequency Dates Dis pense Data Comments Physician Updated By [facility] ed [phone] Centrum Adults Oral Tablet 1.0 TAB PER TUBE ONCE DAILY Prescr ibed: 2024 7:00:3 0 PM UTC [facility] [id number] on 2024 7:00:30 PM [facility] [id number] 9358 4026 511 metoprolol tartrate(LO PRESSOR) 12.5 MG PER TUBE TWICE A DAY Prescr ibed: 2024 7:00:3 0 PM UTC per PEG tube [facility] [id number] on 2024 7:00:30 PM UTC Continu ed 743239 2617 2572 860 famotidine (PEPCID) 20.0 MG PER TUBE TWICE A DAY Prescr ibed: 2024 7:00:3 0 PM UTC [facility] [id number] on [facility] 2024 7:00:30 PM UTC Continu ed 340559 9392 8083 510 Ibuprofen Oral Tablet 400 MG 1.0 TAB PER TUBE EVERY SIX HOURS NEEDED Prescr ibed: 2024 7:00:3 0 PM UTC per PEG tube [facility] [id number] on [facility] 2024 7:00:30 PM UTC Continu ed 426195 1936 7069 611 hydrOXYzine PAMOATE (VISTARIL) 25.0 MG ORAL THREE TIMES A DAY NEEDED Prescr ibed: 2024 7:00:3 0 PM UTC per PEG tube [facility] [id number] on [facility] 2024 7:00:30 PM UTC Continu ed 308150 1657 4089 511 NORCO 5-325 MG 1.0 TAB PER TUBE EVERY SIX HOURS NEEDED Prescr ibed: 2024 7:00:3 0 PM UTC per PEG tube [facility] [id number] on [facility] 2024 7:00:30 PM UTC Continu ed 768036 6164 6198 904 budesonide (PULMICORT) 0.5 MG/2ML 0.5 MG INHALE D TWICE DAILY (RESPIRATO RY) Prescr ibed: 2024 6:50:1 7 PM UTC [facility] [id number] on [facility] 2024 6:50:17 PM UTC Continu ed 9851956 1413 7020 101 DUONEB 0.5-2.5 MG/3 ML 1.0 NEB INHALE D EVERY FOUR HOURS NEEDED (RESPIRATO RY) Prescr ibed: 2024 6:50:1 7 PM UTC [facility] [id number] on [facility] 2024 6:50:17 PM UT Continu ed [id number] 4723 8353 093 Mirtazapine Oral Tablet 30 MG 30.0 MG PER TUBE AT BEDTIME Prescr ibed: 2024 7:00:3 0 PM UTC per PEG tube [facility] [id number] on [facility] 2024 7:00:30 PM UT Continu ed 579517 4573 1021 230 Gabapentin Oral Capsule 300 MG 1.0 CAP PER TUBE THREE TIMES A DAY Prescr ibed: 2024 7:00:3 0 PM UTC [id number] UT Continu ed 871358 1213 4673 061 ACETAMINOPH EN EXTRA STRENGTH 500.0 MG ORAL THREE TIMES A DAY Prescr ibed: 2024 7:00:3 0 PM UTC per PEG tube [facility] [id number] [facility] 7[facility] PM [place] INPATIENT MEDICATIONS Status RXNORM [facility] Medication Dose Route Frequency Rat e Quantity Dates Indication Dispense Data Comments Physician Updated By Marisol inued [id number] 0783 1604 425 LORazepam (ATIVAN) 2 MG/ML SOLN 2.0 MG INTRAV ENOUS ONE TIME ONLY Start: February 05, 2025 5:14:0 0 PM UTC End: February 05, 2025 5:14:0 0 PM UT ELIZABETH Ramos MD INTERF ED on February 05, 2025 5:12:00 PM UT Discont inued 307043 9152 6589 688 nicotine TD (NICODERM) 21 MG/24HR PT24 21.0 MG TRANSD ERMAL ONCE DAILY NEEDED Start: February 05, 2025 7:26:0 0 PM UT End: 2024 7:15:2 2 PM UTC [facility] [id number] on [facility] 2024 4:25:00 AM UT Discont inued 428805 8473 5822 173 hydrALAZINE (APRESOLINE ) 20 MG/ML SOLN 20.0 MG INTRAV ENOUS EVERY FOUR HOURS NEEDED Start: February 05, 2025 7:26:0 0 PM UTC End: 2024 7:15:2 2 PM UTC [facility] [id number] on [facility] 2024 4:25:00 AM UTC Discont inued 0012 1176 130 MAG-AL PLUS 200-200-20 MG/5 ML LIQD 30.0 ML ORAL EVERY SIX HOURS NEEDED Start: February 05, 2025 7:26:0 0 PM UTC End: 2024 7:15:2 2 PM UTC [facility] [id number] on [facility] 2024 4:25:00 AM UTC Discont inued 653130 1716 7044 611 ibuprofen (MOTRIN) 400 MG TABS 400.0 MG ORAL EVERY SIX HOURS NEEDED Start: February 05, 2025 7:26:0 0 PM UTC End: 2024 7:15:2 2 PM UTC [facility] [id number] on [facility] 2024 4:25:00 AM UTC Discont inued 915977 7556 7044 311 traZODone (DESYREL) 50 MG TABS 50.0 MG ORAL AT BEDTIME NEEDED Start: February 05, 2025 7:26:0 0 PM UTC End: February 05, 2025 10:06: 41 PM UTC [facility] [id number] on February 05, 2025 10:06:00 PM UTC Discont inued 188057 9138 4677 361 ACETAMINOPH EN 325 MG TABS 650.0 MG ORAL EVERY SIX HOURS NEEDED Start: February 05, 2025 7:26:0 0 PM UTC End: 2024 7:15:2 2 PM UTC [facility] [id number] on [facility] 2024 4:25:00 AM UTC Discont inued 4231627 0945 7012 911 docusate sodium (COLACE) 100 MG CAPS 100.0 MG ORAL TWICE A DAY Start: February 06, 2025 1:00:0 0 AM UTC End: 2024 7:15:2 2 PM UTC [facility] [id number] on [facility] 2024 4:25:00 AM UTC Discont inued 215398 3073 7059 601 pantoprazol e (PROTONIX) 40 MG TBEC 40.0 MG ORAL ONCE DAILY Start: February 06, 2025 1:00:0 0 PM UTC End: 2024 12:15: 37 PM UTC [facility] [id number] on [facility] 2024 12:16:00 PM UTC Discont inued 692291 5690 8031 082 enoxaparin (LOVENOX) 40 MG/0.4ML SOSY 40.0 MG SUBCUT ANEOUS ONCE DAILY Start: February 06, 2025 1:00:0 0 PM UTC End: 2024 7:15:2 2 PM UTC [facility] [id number] on [facility] 2024 4:25:00 AM UTC Discont inued 1673774 9595 9475 503 ondansetron (ZOFRAN) 4 MG/2ML SOLN 4.0 MG INTRAV ENOUS EVERY EIGHT HOURS NEEDED Start: February 05, 2025 7:26:0 0 PM UTC End: 2024 7:15:2 2 PM UTC [facility] [id number] on [facility] 2024 4:25:00 AM UTC Discont inued 517647 8270 6024 064 ondansetron (ZOFRAN) 4 MG TBDP 4.0 MG SUBLIN GUAL EVERY EIGHT HOURS NEEDED Start: February 05, 2025 7:26:0 0 PM UTC End: 2024 7:15:2 2 PM UTC [facility] [id number] on [facility] 2024 4:25:00 AM UTC Discont inued 912225 5613 4011 900 mirtazapine (REMERON) 15 MG TABS 15.0 MG ORAL AT BEDTIME Start: February 06, 2025 1:00:0 0 AM UTC End: 2024 7:15:2 2 PM UTC [facility] [id number] on [facility] 2024 4:25:00 AM UTC Discont inued 072257 2789 7059 111 gabapentin (NEURONTIN) 300 MG CAPS 300.0 MG ORAL ONCE DAILY Start: February 06, 2025 1:00:0 0 PM UTC End: February 06, 2025 2:50:1 8 PM UTC [facility] [id number] on February 06, 2025 2:50:00 PM UTC Discont inued 5449244 0561 7020 101 DUONEB 0.5-2.5 MG/3 ML SOLN 1.0 NEB INHALE D EVERY TWO HOURS NEEDED (RESPIRATO RY) Start: February 05, 2025 7:34:0 0 PM UTC End: 2024 9:54:0 0 PM UTC [facility] [id number] on [facility] 2024 4:25:00 AM UTC Discont inued 183576 6714 6198 904 budesonide (PULMICORT) 0.5 MG/2ML SUSP 0.5 MG INHALE D TWICE DAILY (RESPIRATO RY) Start: February 05, 2025 11:00: 00 PM UTC End: 2024 9:54:0 0 PM UTC [facility] [id number] on [facility] 2024 4:25:00 AM UTC Discont inued 245709 4543 9069 020 loperamide (IMODIUM) 2 MG CAPS 2.0 MG ORAL NEEDED Start: February 05, 2025 7:34:0 0 PM UTC End: 2024 7:15:2 2 PM UTC [facility] [id number] on [facility] 2024 4:25:00 AM UTC Discont inued 237974 6953 0003 310 metoprolol tartrate(LO PRESSOR) 1 MG/ML SOLN 5.0 MG INTRAV ENOUS EVERY HOUR NEEDED Start: February 05, 2025 7:34:0 0 PM UTC End: 2024 7:15:2 2 PM UTC [facility] [id number] on [facility] 2024 4:25:00 AM UTC Discont inued 141670 6734 1090 825 promethazin e inj (PHENERGAN) 25 MG/ML SOLN 25.0 MG INTRAV ENOUS EVERY SIX HOURS NEEDED Start: February 05, 2025 7:34:0 0 PM UTC End: 2024 1:45:1 3 PM UTC [facility] [id number] on [facility] 2024 1:45:00 PM UTC Discont inued 796677 2058 4026 511 metoprolol tartrate(LO PRESSOR) 25 MG TABS 12.5 MG ORAL TWICE A DAY Start: February 05, 2025 8:15:0 0 PM UTC End: 2024 9:54:0 0 PM UTC [facility] [id number] on [facility] 2024 4:25:00 AM UTC Discont inued 684777 9197 5060 702 megestrol acetate (MEGACE) 40 MG TABS 20.0 MG ORAL TWICE A DAY Start: February 06, 2025 1:00:0 0 AM UTC End: 2024 5:03:3 2 PM UTC [facility] [id number] on [facility] 2024 5:03:00 PM UTC Discont inued 701490 6634 7059 111 gabapentin (NEURONTIN) 300 MG CAPS 600.0 MG ORAL AT BEDTIME Start: February 06, 2025 1:00:0 0 AM UTC End: February 06, 2025 2:50:1 8 PM UTC [facility] [id number] on February 06, 2025 2:50:00 PM UTC Discont inued 830856 5497 7094 611 hydrOXYzine PAMOATE (VISTARIL) 25 MG CAPS 25.0 MG ORAL THREE TIMES A DAY NEEDED Start: February 05, 2025 10:03: 00 PM UTC End: 2024 9:54:0 0 PM UTC [facility] [id number] on [facility] 2024 4:25:00 AM UTC Discont inued 1658291 3532 8008 504 D5 1/2NS SOLN 1000. 0 ML INTRAV ENOUS CONT 100.0 ML/HR Start: February 05, 2025 11:05: 00 PM UTC End: 2024 2:29:0 4 PM UTC [facility] [id number] on [facility] 2024 2:29:00 PM UTC Discont inued 371262 4784 7059 111 gabapentin (NEURONTIN) 300 MG CAPS 300.0 MG ORAL THREE TIMES A DAY Start: February 06, 2025 7:00:0 0 PM UTC End: 2024 7:15:2 2 PM UTC [facility] [id number] on [facility] 2024 4:25:00 AM UTC Discont inued 9051220 7216 5531 911 KLOR-CON M20 20 MEQ TBCR 40.0 MEQ ORAL EVERY FOUR HOURS Start: February 06, 2025 3:00:0 0 PM UTC End: 2024 4:25:1 7 AM UTC [facility] [id number] on [facility] 2024 4:25:00 AM UTC Discont inued 1056557 5081 6051 223 PERCOCET 5-325 MG TABS 1.0 TAB ORAL EVERY SIX HOURS NEEDED Start: February 06, 2025 10:53: 00 PM UTC End: 2024 1:45:1 3 PM UTC [facility] [id number] on [facility] 2024 1:45:00 PM UTC Discont inued 9559642 4899 9379 501 ketorolac (TORADOL) 30 MG/ML SOLN 15.0 MG INTRAV ENOUS NOW Start: 2024 9:02:0 0 AM UTC End: 2024 9:19:0 4 AM UTC PORTIA HERCULES [id number] on [facility] 2024 9:19:00 AM UTC Discont inued 7298916 8327 9379 501 ketorolac (TORADOL) 30 MG/ML SOLN 30.0 MG INTRAV ENOUS ONE TIME ONLY Start: 2024 9:19:0 0 AM UTC End: 2024 9:19:0 0 AM UTC [facility] INTERFAC ED on [facility] 2024 9:18:00 AM UTC Discont inued 320466 3167 0020 200 PANTOPRAZOL E SODIUM 40 MG SOLR 40.0 MG INTRAV ENOUS ONCE DAILY Start: 2024 1:00:0 0 PM UTC End: 2024 1:45:1 3 PM UTC [facility] [id number] on [facility] 2024 1:45:00 PM UTC Discont inued 741247 9181 7044 311 traZODone (DESYREL) 50 MG TABS 50.0 MG ORAL AT BEDTIME Start: 2024 1:00:0 0 AM UTC End: 2024 7:15:2 2 PM UTC [facility] [id number] on [facility] 2024 4:25:00 AM UTC Discont inued 0090 4673 061 ACETAMINOPH EN EXTRA STRENGTH 500 MG TABS 500.0 MG ORAL THREE TIMES A DAY Start: 2024 7:00:0 0 PM UTC End: 2024 9:54:0 0 PM UTC [facility] [id number] on [facility] 2024 4:25:00 AM UTC Discont inued 675470 5799 2572 860 famotidine (PEPCID) 20 MG TABS 20.0 MG ORAL TWICE A DAY Start: 2024 1:00:0 0 AM UTC End: 2024 9:54:0 0 PM UTC MONTANA Ramos MD [id number] on [facility] 2024 4:25:00 AM UTC Discont inued 607223 4317 0710 709 D5NS w/ 20MEQ KCL 1000 ML SOLN 1000. 0 ML INTRAV ENOUS CONT 75.0 ML/HR Start: 2024 6:38:0 0 PM UTC End: 2024 1:52:4 8 PM UTC [facility] [id number] [facility] 1:52:00 PM UTC Discont inued 9803664 8509 9379 501 ketorolac (TORADOL) 30 MG/ML SOLN 30.0 MG INTRAV ENOUS EVERY EIGHT HOURS NEEDED Start: 2024 11:15: 00 PM UTC End: 2024 7:15:2 2 PM UTC [facility]NA Ramos [facility] [id number] [facility] 2024 4:25:00 AM UTC Discont inued 5415305 8573 3066 401 diphenhydrA MINE (BENADRYL) 50 MG/ML SOLN 50.0 MG INTRAV ENOUS AT BEDTIME NEEDED Start: 2024 12:56: 00 AM UTC End: 2024 7:15:2 2 PM UTC RIO Wagner PA-C [id number] [facility] 2024 4:25:00 AM UTC Discont inued 658156 2466 4089 511 NORCO 5-325 MG TABS 1.0 TAB ORAL EVERY SIX HOURS NEEDED Start: 2024 5:05:0 0 AM UTC End: 2024 5:31:3 4 AM UTC RIO Wagner PA-C [id number] [facility] 2024 5:31:00 AM UTC Discont inued 9805769 4763 9189 003 morphine sulfate 2 MG/ML SOLN 2.0 MG INTRAV ENOUS EVERY FOUR HOURS NEEDED Start: 2024 5:30:0 0 AM UTC End: 2024 9:45:4 1 AM UTC RIO Wagner PA-C [id number] [facility] 2024 9:45:00 AM UTC Discont inued 8736413 7932 1604 425 LORazepam (ATIVAN) 2 MG/ML SOLN 1.0 MG INTRAV ENOUS EVERY SIX HOURS NEEDED Start: 2024 5:31:0 0 AM UTC End: 2024 9:45:4 1 AM UTC RIO Wagner PA-C [id number] on [facility] 2024 9:45:00 AM UTC Discont inued 882015 0896 0710 709 D5NS w/ 20MEQ KCL 1000 ML SOLN 1000. 0 ML INTRAV ENOUS CONT 75.0 ML/HR Start: 2024 1:52:0 0 PM UTC End: 2024 7:15:2 2 PM UTC MONTANA Ramos MD [id number] on [facility] 2024 4:25:00 AM UTC Discont inued 271028 9240 4775 000 lactated ringers (LR) SOLN 1000. 0 ML INTRAV ENOUS ONE TIME ADMINISTRA TION (UNSCHEDUL ED) 125.0 ML/HR Start: 2024 4:22:0 0 PM UTC End: 2024 4:25:2 0 PM UTC JUANITA DELEON MD [id number] on [facility] 2024 4:25:00 PM UTC Discont inued 4212479 6970 9469 930 propofol (DIPRIVAN) 200 MG/20ML EMUL 20.0 ML INTRAV ENOUS ONE TIME ONLY Start: 2024 4:41:0 0 PM UTC End: 2024 4:41:0 0 PM UTC [facility] INTERFAC ED on 2024 4:39:00 PM UTC Discont inued 7165 9425 101 PHENYLEPHRI NE HCL (PRESSORS) 1 MG/10ML SOSY 1.0 MG INTRAV ENOUS ONE TIME ONLY Start: 2024 4:41:0 0 PM UTC End: 2024 4:41:0 0 PM UTC [facility] INTERFAC ED on [facility] 2024 4:39:00 PM UTC Discont inued 6373519 0033 8915 930 sodium chloride MINI-BAG PLUS 0.9 % 100 ML MBP REYNA 100.0 ML INTRAV ENOUS ONE TIME ONLY Start: 2024 6:05:0 0 PM UTC End: 2024 6:05:0 0 PM UTC [facility] INTERFAC ED on 2024 6:03:00 PM UTC Discont inued 1853267 7044 3992 490 ceFAZolin (ANCEF) 1 GM SOLR 1.0 GM INTRAV ENOUS ONE TIME ONLY Start: 2024 6:05:0 0 PM UTC End: 2024 6:05:0 0 PM UTC [facility] INTERFAC ED on 2024 6:03:00 PM UTC Discont inued 9268539 2977 3992 490 ceFAZolin (ANCEF) 1 GM SOLR 1.0 GM INTRAV ENOUS ONE TIME ADMINISTRA TION (UNSCHEDUL ED) 200.0 ML/HR Start: 2024 6:07:0 0 PM UTC End: 2024 6:09:3 1 PM UTC JUANITA DELEON MD [id number] on 2024 6:35:00 PM UTC Discont inued 0761646 0033 8915 930 sodium chloride MINI-BAG PLUS 0.9 % 100 ML MBP REYNA 100.0 ML INTRAV ENOUS ONE TIME ADMINISTRA TION (UNSCHEDUL ED) 200.0 ML/HR Start: 2024 6:07:0 0 PM UTC End: 2024 6:09:3 1 PM UTC JUANITA [id number] on 2024 6:35:00 PM UTC Discont inued 5541326 5013 9469 930 propofol (DIPRIVAN) 200 MG/20ML EMUL 20.0 ML INTRAV ENOUS ONE TIME ONLY Start: 2024 6:25:0 0 PM UTC End: 2024 6:25:0 0 PM UTC [facility] INTERFAC ED on 2024 6:24:00 PM UTC Discont inued 4601787 1238 9189 003 morphine sulfate 2 MG/ML SOLN 2.0 MG INTRAV ENOUS EVERY FOUR HOURS NEEDED Start: 2024 11:44: 00 PM UTC End: 2024 5:03:5 3 PM UTC RIO Wagner PA-C [id number] on [facility] 2024 5:03:00 PM UTC Discont inued 9719604 4598 6051 223 PERCOCET 5-325 MG TABS 1.0 TAB ORAL EVERY SIX HOURS NEEDED Start: 2024 5:03:0 0 PM UTC End: 2024 3:22:0 7 AM UTC [facility] [id number] on [facility] 2024 3:22:00 AM UTC Discont inued 809986 3760 4089 511 NORCO 5-325 MG TABS 1.0 TAB ORAL EVERY SIX HOURS NEEDED Start: 2024 3:21:0 0 AM UTC End: 2024 7:15:2 2 PM UTC RIO Wagner PA-C [id number] on [facility] 2024 4:25:00 AM UTC Discont inued XXXX XXX0 063 *PATIENT INFORMATION MISC 1.0 EA SEE COMMEN TS NEEDED Start: 2024 6:52:0 0 PM UTC End: 2024 7:15:2 2 PM UTC [facility] [id number] on [facility] 2024 4:25:00 AM UTC SOCIAL HISTORY SOCIAL HISTORY - Smoking Status SNOMED-CT Social History Element Description Effective Dates Offered Cessation Comment Updated By [id number] Current Tobacco smoking status Former Smoker [id number] on February 05, 2025 4:08:32 PM UT [id number] Historical Tobacco smoking status Current Every Day Smoker 1/2 ppd [id number] on February 19, 2024 3:38:50 PM UT SOCIAL HISTORY - Gender Sex: Female SOCIAL HISTORY - Status : status i nformation is not available Intention in Next Year: intention information is not available SOCIAL HISTORY - Assessments Code System Description Status Date Value of Assessment Updated By Comment Assessment Information is no t available SOCIAL HISTORY - [place] Affiliation Ho-Chunk information is not av ailable SOCIAL HISTORY - Legal Sex Legal Sex information is not available SOCIAL HISTORY - Sexual Behavior Sexual Orientation Gender Identity SNOMED-CT Description SNO MED -CT Description Activity Level No of Partners Partner Type UpdatedBy Information is not available SOCIAL HISTORY - Occupation Occupation information is no t available VITAL SIGNS PATIENT VITAL SIGNS This section displays the mo st recent value for each vital sign as of February 16, 2025 1:18:50 PM UTC Loinc Code Vital Sign Activity Date Result Updated By 8302-2 Body height February 05, 2025 8:59:06 PM UTC 172.72 cm (68.0 in) [id number] on February 05, 2025 8:59:06 PM UTC 94202-1 Body mass index (BMI ) [Ratio] February 05, 2025 8:59:06 PM UTC 14.783 kg/m2 3140-1 Body Surface Area Derived From Formula February 05, 2025 8:59:06 PM UTC 1.5043 m2 8310-5 Body temperature February 14 6:56:00 PM UTC 98.2 [degF] 53232-7 Body weight Measured February 05, 2025 8:59:06 PM UTC 43.4 kg (96.0 lb) [id number] on February 05, 2025 8:59:06 PM UTC 8462-4 Diastolic blood pressure February 14, 2025 6:56:00 PM UTC 60.0 mm[Hg] 8867-4 Heart rate February 14 6:56:00 PM UTC 72 /min 67705-8 Oxygen saturation in Arterial blood by Pulse oximetry February 14, 2025 6:56:00 PM UTC 96.0 % 8506-8 Radial artery Mean blood pressure February 10, 2025 11:07:00 PM UTC 90.0 mm[Hg] 9279-1 Respiratory rate February 14 6:56:00 PM UTC 18 /min 64356-9 Spirometry panel February 14 11:25:00 AM UTC 3.0 {score} 8480-6 Systolic blood pressure February 14, 2025 6:56:00 PM UTC 127.0 mm[Hg] PEDIATRIC GROWTH CHART - VITAL SIGNS This section displays Head C ircumference Percentile, Weight for Length Percentile and BMI Percentile Loinc Code Pediatric Measure Age (Months) Result Updat ed By No Pediatric Growth Chart Pe rcentile Information Available. PROCEDURES PATIENT PROCEDURES CODE SYSTEM DESCRIPTION STATUS PERFORMED DATE UPDATED BY [id number] SNOMED-CT ESOPHAGOGASTRODU ODENOSCOPY WITH INSERTION PEG completed February 11, 2025 4:00:00 AM UT [id number] on February 11, 2025 6:37:08 PM UT PROCEDURE NOTE Procedure Note information i s not available. HEALTH CONCERNS Problems Concern Status Health Concern problem infor mation not available. Smoking Status Status Years Used Consumed packs p er day Health Concern smoking histo ry information not available. Family History Concern Status Health Concern family histor y information not available. MEDICAL EQUIPMENT MEDICAL EQUIPMENT Device Status Quantity Dates Procedure Comments Updated By No implanted devices [id number] on 2024 3:00:07 PM UT ENCOUNTERS ENCOUNTER INFORMATION Reason for Visit DYPHAGIA Admission February 05, 2025 7:29:00 PM [place] [address] [address] Discharge February 14, 2025 9:54:00 PM [facility] (SNF) ENCOUNTER DIAGNOSES Note Title Discharge Summary Date Of Service February 14, 2025 7: 03:07 PM UT Created By [id number] on February 14, 2025 7:03:07 PM UT Signed By [id number] on February 14, 2025 7:16:04 PM UT Code System Diagnosis Onset Date 527896456 SNOMED-CT Weakness present 27901947 SNOMED-CT Dysphagia 54013770 SNOMED-CT Pulmonary aspiration ABSTRACT DIAGNOSES Code System Diagnosis Updated By Abatement Date R13.10 ICD10 DYSPHAGIA, UNSPECIFIED [id number] on February 15, 2025 1:28:36 PM UT R13.10 ICD10 DYSPHAGIA, UNSPECIFIED [id number] 11 on February 15, 2025 1:28:36 PM [facility] T17.818A ICD10 GASTRIC CONTENTS IN OTHER PARTS OF RESPIRATORY TRACT CAUSING OTHER INJURY, INITIAL ENCOUNTER [id number] on February 15, 2025 1:28:36 PM UT I47.10 ICD10 SUPRAVENTRICULAR TACHYCARDIA, UNSPECIFIED [id number] on February 15, 2025 1:28:36 PM UT Z68.1 ICD10 BODY MASS INDEX [BMI] 19.9 OR LESS, ADULT [id number] on February 15, 2025 1:28:36 PM [facility] E87.6 ICD10 HYPOKALEMIA [id number] on Feb 1:28:36 PM UT E86.0 ICD10 DEHYDRATION [id number] on Feb 1:28:36 PM UT R79.1 ICD10 ABNORMAL COAGULATION PROFILE [id number] on February 15, 2025 1:28:36 PM UT J44.9 ICD10 CHRONIC OBSTRUCT MARIANELA PULMONARY DISEASE, UNSPECIFIED [id number] on February 15, 2025 1:28:36 PM UT R63.6 ICD10 UNDERWEIGHT [id number] on Feb 1:28:36 PM UT G89.29 ICD10 OTHER CHRONIC PAIN [id number] o n February 15, 2025 1:28:36 PM [facility] F41.9 ICD10 ANXIETY DISORDER, UNSPECIFIE D [id number] on February 15, 2025 1:28:36 PM [facility] M79.671 ICD10 PAIN IN RIGHT FOOT [id number] o n February 15, 2025 1:28:36 PM [facility] M25.571 ICD10 PAIN IN RIGHT AN KLE AND JOINTS OF RIGHT FOOT [id number] on February 15, 2025 1:28:36 PM [place] R29.6 ICD10 REPEATED FALLS [id number] on 2024 1:28:36 PM [facility] Z91.81 ICD10 HISTORY OF FALLING [id number] o n February 15, 2025 1:28:36 PM [facility] Z79.899 ICD10 OTHER ASSISTED (CURRENT) DRUG THERAPY [id number] on February 15, 2025 1:28:36 PM [facility] Z87.891 ICD10 PERSONAL HISTORY OF NICOTINE DEPENDENCE [id number] on February 15, 2025 1:28:36 PM [facility] R94.31 ICD10 ABNORMAL ELECTRO CARDIOGRAM [ECG] [EKG] [id number] on February 15, 2025 1:28:36 PM [facility] CARE TEAM Care Roof Truss Detailer Role KEITH RICHARD Referring KEITH RICHARD Primary Attending KEITH RICHARD Admitting KVNG CONWAY Primary Care HISTORY AND PHYSICAL NOTE CONSULTATION NOTE DISCHARGE SUMMARY NOTE PROGRESS NOTE CARE TEAM CARE sheet rock applicator Role on Team Location Telecom Status Start Date End Jose e Updated By KOURTNEY SAUNDERS CRNA Healthcare professional normal February 11, 2025 5:51:00 PM UTC February 14, 2025 9:54:00 PM UTC [id number] on February 11, 2025 6:34:49 PM UTC JUANITA DELEON MD PHY Surgeon normal February 11, 2025 6:00:00 PM UTC February 14, 2025 9:54:00 PM UTC [id number] on February 11, 2025 6:34:49 PM UTC [facility] Holly KEITH Referring normal February 05, 2025 5:57:56 PM UTC February 05, 2025 4:00:00 AM UTC [id number] on February 11, 2025 6:34:49 PM UTC [facility] Holly KEITH Attending normal February 05, 2025 5:57:56 PM UTC February 05, 2025 4:00:00 AM UTC [id number] on February 11, 2025 6:34:49 PM UTC GUTIERRES-ORMAHAMED CHRISTYGAR Admitting normal February 05, 2025 5:57:56 PM UTC February 05, 2025 4:00:00 AM UTC [id number] on February 11, 2025 6:34:49 PM UTC ELIZABETH Ramos MD, MD Referring normal February 05, 2025 4:54:19 PM UTC February 05, 2025 5:57:56 PM UTC [id number] on February 11, 2025 6:34:49 PM UTC ELIZABETH Ramos MD, MD Attending normal February 05, 2025 4:54:19 PM UTC February 05, 2025 5:57:56 PM UTC [id number] on February 11, 2025 6:34:49 PM UTC ELIZABETH Ramos MD, MD Admitting normal February 05, 2025 4:54:19 PM UTC February 05, 2025 5:57:56 PM UTC [id number] on February 11, 2025 6:34:49 PM UTC MAN CALDERON MD [facility] normal February 05, 2025 3:40:50 PM UTC February 08, 2025 2:49:08 PM UTC [id number] on February 11, 2025 6:34:49 PM UTC
--- OUTSIDE RECORDS SUMMARY | 2025-04-08 07:17 | XMS_ITS | Continuity of Care Document ---
Author Organization [facility] Phone Care Team Providers Care Go Go Dancer Name Role Phone JAMILAH WELCH Admitting KVNG CONWAY Primary Care JAMILAH WELCH Primary Attending JAMILAH WELCH Unavailable ALLERGIES AND ADVERSE REACTIONS ALLERGIES AND ADVERSE REACTIONS Code System Allergy Substance Adverse Reaction Date Reaction (Severity) Comment Status Reported By Updated By No Known Allergies [id number] on February 14, 2025 3:20:44 AM [facility] RESULTS Patient: DALE SHAVER Date of : 1950 LABORATORY RESULTS Information is not available LABORATORY NARRATIVE RESULTS Information is not available RADIOLOGY RESULTS ORDER 100: MODIFIED BARIUM S WALLOW (LOINC: 39626-6) ORDER DATE: April 06, 2025 2:56:00 PM [facility] PERFORMING LAB: [address] [id number] Final Result Date: March 102024 3:47:[address] [place] [address] Name: SIVAKUMAR HUNTER Exam Date: 04/06/2025 : 1950 Age 74 years Gender: F Physician: JAMILAH WELCH Facility: [facility] Facility HSV: Outpatient Exam: MODIFIED BARIUM SWALLOW EXAM: MODIFIED BARIUM SWALLOW Performed by: ANNEL Carmona Attending Physician: Dr. Jose Sainz MD. INDICATION: dysphasia. S/P PEG tube. FINDINGS/TECHNIQUE: Under fluoroscopic evaluation cineradiography/videoradiography recordings were performed in conjunction with the speech-language pathologist ([employer]). Various liquid, solid and/or semi-solid barium preparations were used to assess swallowing function. Aspiration visualized with applesauce. Recorded fluoroscopy was used for this study. FLUORO TIME: 2.3 minutes. Reference air kerma: 13.417 mGy. IMPRESSION: Modified barium swallow. Aspiration visualized with applesauce. Please see formal report by speech-language pathology for findings and recommendations. Electronically signed by: Jose Sainz MD 04/06/2025 01:05 PM EDT RP Dictated By: Jose Sainz Transcribed By: Transcribed On: 04/06/2025 11:47 AM Electronically signed by: Jose Sainz 04/06/2025 Thank you for referring SIVAKUMAR HUNTER to [facility]. Legally authenticated by DENA KAUFMAN MD 2025-04-06 11:47:00 PATHOLOGY NARRATIVE RESULTS Information is not available MICROBIOLOGY RESULTS No Micro Labs/Results Exist for Patient BLOOD ADMIN RESULTS Information is not available MEDICATIONS HOME MEDICATIONS Status RXNORM NDC Medication Dose Route Frequency Dates Comments Reported By Updated By Drug Treatment Unknown DISCHARGE MEDICATIONS Status RXNORM NDC Medication Dose Route Frequency Dates Dis pense Data Comments Physician Updated By No Discharge Medication Info rmation Available INPATIENT MEDICATIONS Status RXNORM NDC Medication Dose Route Frequency Rat e Quantity Dates Indication Dispense Data Comments Physician Updated By No Inpatient Medication Info rmation Available SOCIAL HISTORY SOCIAL HISTORY - Smoking Status SNOMED-CT Social History Element Description Effective Dates Offered Cessation Comment Updated By [id number] Historical Tobacco smoking status Former Smoker [id number] on February 05, 2025 4:08:32 PM [facility] [id number] Historical Tobacco smoking status Current Every Day Smoker 1/2 ppd [id number] on February 19, 2024 3:38:50 PM [facility] SOCIAL HISTORY - Gender Sex: Female SOCIAL HISTORY - Status : status i nformation is not available Intention in Next Year: intention information is not available SOCIAL HISTORY - Assessments Code System Description Status Date Value of Assessment Updated By Comment Assessment Information is no t available SOCIAL HISTORY - [place] Affiliation [place] information is not av ailable SOCIAL HISTORY - Legal Sex Legal Sex information is not available SOCIAL HISTORY - Sexual Behavior Sexual Orientation Gender Identity SNOMED-CT Description SNO MED -CT Description Activity Level No of Partners Partner Type UpdatedBy Information is not available SOCIAL HISTORY - Occupation Occupation information is no t available HEALTH CONCERNS Problems Concern Status Health Concern problem infor mation not available. Smoking Status Status Years Used Consumed packs p er day Health Concern smoking histo ry information not available. Family History Concern Status Health Concern family histor y information not available. MEDICAL EQUIPMENT MEDICAL EQUIPMENT Device Status Quantity Dates Procedure Comments Updated By No implanted devices [id number] on er 2024 3:00:07 PM [facility] ENCOUNTERS ENCOUNTER INFORMATION Reason for Visit R13.10 Admission April 06, 2025 2:42:[address] [id number] Discharge April 06, 2025 2:42:00 PM [facility] DISCHARGED TO HOME OR SELF CARE ENCOUNTER DIAGNOSES Notes information is not aracely ilable. Code System Diagnosis Onset Date Diagnosis information is not available. 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 Role on Team Location Telecom Status Start Date End Jose e Updated By MAN CALDERON MD PCP normal March 25, 2025 3:55:57 PM [facility] April 06, 2025 2:42:00 PM [facility] [id number] on March 25, 2025 3:55:57 PM [facility] REBEKAH Barbour APRN Referring normal March 25, 2025 3:55:57 PM [facility] April 06, 2025 2:42:00 PM [facility] [id number] on March 25, 2025 3:55:57 PM [facility] REBEKAH Barbour APRN Attending normal March 25, 2025 3:55:57 PM [facility] April 06, 2025 2:42:00 PM [facility] [id number] on March 25, 2025 3:55:57 PM [facility] REBEKAH Barbour APRN Admitting normal March 25, 2025 3:55:57 PM [facility] April 06, 2025 2:42:00 PM [facility] [id number] on March 25, 2025 3:55:57 PM [facility]
--- NOTE | 2025-04-08 14:02 | HMH.EDGENADL ---
Discharge Plan Disposition Patient Disposition: Xfer SNF Condition: Good Prescriptions Prescriptions: No Action multivitamin Tablet 1 tab PO DAILY buspirone 5 mg tablet 5 mg PO BID mirtazapine 30 mg tablet 30 mg PO HS cefdinir 300 mg capsule 300 mg PO BID 2 Days Qty: 4 0RF Rx Instructions: Start 10/18/24. ipratropium-albuterol 0.5 mg-3 mg(2.5 mg base)/3 mL Solution For Nebulization 3 ml inhalation Q6HP PRN (Reason: Shortness Of Breath) 30 Days Qty: 90 0RF gabapentin 300 mg capsule 300 mg PO 1200 30 Days Qty: 30 0RF Rx Instructions: takes around noon gabapentin 300 mg capsule 600 mg PO HS 30 Days Qty: 60 0RF Referrals Follow up/Referrals: Provider,Referral, MD [Primary Care Provider, Medical] - See instructions Activity Restrictions/Add. Instructions Additional Instructions/Restrictions: If you develop any new or worsening symptoms, or if you become concerned for your help for any reason, return to the emergency department for evaluation Clinical Impressions Clinical Impression: Complication of feeding tube Instructions Patient Instructions: DI for Acute Abdominal Pain Print Language Print Language: Faroese Discharge ED Provider: Marcio Ramos General Adult HPI <Marcio Ramos MD - Last Filed: 04/08/25 15:11> General Chief complaint: Abdominal Pain Stated complaint: Dislodged feed tube Time Seen by Provider: 04/08/25 14:02 Mode of Arrival: EMS Source of Information: Patient and EMS History of Present Illness HPI narrative: Gia Farley is a 74y female with a past medical history of dysphagia, underweight, has a feeding tube in place, COPD who presents to the emergency department from group home for possible dislodged feeding tube. Per EMS, they did not get much of a report from the group home but states that today, her feeding tube made a gurgling noise instead of a whooshing noise and they were afraid it may be dislodged. They do not know what type of feeding regimen she gets. Reportedly, patient has been complaining of pain around the feeding tube site today. Patient is also complaining of neck pain to me that is chronic but denies any falls. EMS does not have any further history on the patient at this time. Related Data Home Medications ?Medication ?Instructions ?Recorded ?Confirmed multivitamin 1 tab PO DAILY 11/17/23 10/14/24 buspirone 5 mg tablet 5 mg PO BID 10/14/24 10/15/24 mirtazapine 30 mg tablet 30 mg PO HS 10/15/24 10/15/24 Previous Rx's ?Medication ?Instructions ?Recorded cefdinir 300 mg capsule 300 mg PO BID 2 days #4 caps 10/17/24 gabapentin 300 mg capsule 300 mg PO 1200 30 days #30 caps 10/17/24 gabapentin 300 mg capsule 600 mg (2 x 300 mg) PO HS 30 days 10/17/24 #60 caps ipratropium 0.5 mg-albuterol 3 mg 3 ml inhalation Q6HP PRN Shortness 10/17/24 (2.5 mg base)/3 mL nebulization Of Breath 30 days #90 mL soln Allergies Allergy/AdvReac Type Severity Reaction Status Date / Time Sulfa (Sulfonamide Allergy Unknown Hives Verified 09/07/24 15:06 Antibiotics) [facility] <Marcio Ramos MD - Last Filed: 04/08/25 15:11> [facility] Disclaimer: The information contained in this section may have been updated after the patient was seen, as this information can be updated by other users. Medical History Neuropathy Abnormal CT of the chest COPD (chronic obstructive pulmonary disease) Large bullae/bleb right apex. No evidence of malignancy History of cataract Depression Surgical History History of surgery on wrist Family History Other Cancer Social History (Updated 10/14/24 @ 18:03 by Shantal Valles RN) Smoking Status: Never smoker smoking status start date: 40 yrs ago alcohol intake: never substance use type: denies use current occupational status: retired Travel in the last 8 weeks?: None household members: family housing: house marital status: single number of children: 1 Have you lived/traveled outside [place] in past 30 days?: No Contact w/someone who lives/traveled outside US past 30 days?: No Exposure to someone with infectious disease in past 14 days?: No Do you have a fever (greater than 100.4 F or 38 C)?: No Have you tested positive for COVID-19?: No Exposed to someone with COVID-19 in past 14 days?: No Do you have a sore throat?: No Do you have a cough?: No Do you have any weakness?: No Do you have any diarrhea?: No Are you experiencing any unusual bleeding?: No Do you have any muscle aches/pain?: No Do you have any abdominal pain?: No Are you experiencing loss of taste or smell?: No Other Medical History Have you received the Flu Vaccine for this season: No Have you received the Pneumonia Vaccine: No <Marcio Ramos MD - Last Filed: 04/08/25 15:11> ROS Obtained: Yes Systems reviewed as appropriate & no additional complaints except as documented Physical Exam <Marcio Ramos MD - Last Filed: 04/08/25 15:11> General General appearance: alert and in no apparent distress Comment: thin Head Head exam: atraumatic Eye Eye exam: Present normal appearance ENT ENT exam: Present normal external ear exam Neck Neck exam: Present full ROM; Absent tenderness Chest Chest inspection: Present symmetric chest wall rise Respiratory Respiratory exam: Present normal lung sounds bilaterally; Absent respiratory distress Cardiovascular Cardiovascular exam: Present regular rate and normal rhythm Abdominal Exam Abdominal exam: Present soft and other (Feeding tube in place to the left upper quadrant. 20 Lithuanian, 15 cm tube. Appears to be intact at the skin. No erythema. No abdominal tenderness. No abdominal distention); Absent distention, tenderness or guarding Extremities Exam Extremities exam: Present normal inspection Back Exam Back exam: Present normal inspection Neurological Exam Neurological exam: Present alert and oriented X3 Psychiatric Psychiatric exam: Present normal affect Skin Skin exam: Present warm and dry Medical Decision Making <Marcio Ramos MD - Last Filed: 04/08/25 15:11> Medical Records Screening: Per USPSTF and CDC recommendations, given the prevalence of disease in our region, it is our hospital?s policy to screen for HIV and viral Hepatitis for all patients aged 18 and over and those with ongoing risk factors. Bryson Inquiry Pt receiving controlled substance: No Vital Signs: 04/08/25 14:09 04/08/25 14:30 04/08/25 15:00 Temperature 98.1 F Temperature Source Oral Pulse Rate 82 89 Pulse Rate [Radial] 77 Respiratory Rate 18 Blood Pressure 132/70 143/77 H Blood Pressure [Right Arm] 159/86 H Blood Pressure Mean 90 Blood Pressure Mean [Right Arm] 110 Blood Pressure Source Blood Pressure Source [Right Arm] Automatic Cuff Blood Pressure Position Blood Pressure Position [Right Arm] Sitting 02 Sat by Pulse Oximetry 97 96 96 Oxygen Delivery Method Room Air Room Air 04/08/25 15:30 04/08/25 16:00 04/08/25 16:52 Temperature 98.1 F Temperature Source Oral Pulse Rate 88 87 87 Pulse Rate [Radial] Respiratory Rate 18 Blood Pressure 148/78 H 146/75 H 146/75 H Blood Pressure [Right Arm] Blood Pressure Mean 101 98 Blood Pressure Mean [Right Arm] Blood Pressure Source Automatic Cuff Blood Pressure Source [Right Arm] Blood Pressure Position Sitting Blood Pressure Position [Right Arm] 02 Sat by Pulse Oximetry 96 96 Oxygen Delivery Method Room Air Orders (Tests/Meds): ED MEDICATIONS Discontinued Medications Generic Name Dose Route Start Last Admin Trade Name Freq PRN Reason Stop Dose Admin Acetaminophen 1,000 mg 04/08/25 16:34 Acetaminophen 325mg/10.15ml Udc PO 04/08/25 16:35 ONCE ONE Diatrizoate Meglum/Diatrizoate Sod 30 ml 04/08/25 14:27 04/08/25 14:29 Diatrizoate Meglumine(Gastrografin) 66%-10% 120ml PO 04/08/25 14:28 30 ml ONCE ONE Administration Gabapentin 600 mg 04/08/25 16:34 Gabapentin 300mg Capsule PO 04/08/25 16:35 ONCE ONE ORDERS Category Date Time Status XR KUB Stat Exams 04/08/25 14:10 Completed Medical Decision Narrative: Gia Farley is a 74y female with a past medical history of dysphagia, underweight, has a feeding tube in place, COPD who presents to the emergency department from group home for possible dislodged feeding tube. Per EMS, they did not get much of a report from the group home but states that today, her feeding tube made a gurgling noise instead of a whooshing noise and they were afraid it may be dislodged. They do not know what type of feeding regimen she gets. Reportedly, patient has been complaining of pain around the feeding tube site today. Patient is also complaining of neck pain to me that is chronic but denies any falls. EMS does not have any further history on the patient at this time. On arrival, patient is hemodynamically stable, BP 159/86, oxygenation 97% on room air, heart rate within normal limits. Physical exam, stated above, revealed overall nontoxic-appearing female in no distress. She does appear thin. A feeding tube in place to left upper quadrant without erythema. It is a 20 Lithuanian, 15 cm tube. No abdominal tenderness or distention. Cardiopulmonary exam is unremarkable. Nursing staff contacted nursing staff at the group home who stated that patient had returned from physical therapy this morning and was complaining of pain in her PEG site. They stated that the feeding tube was not making the whooshing sound that they typically expect but did have normal bowel sounds. They state the patient does get continuous feeds through this and intermittent flushes. She also gets comfort feedings by mouth but does not know the last time she ate. Patient was recently transferred from [facility] with PEG tube in place and group home staff does not know when it was placed, however patient states that it was February 11. Will obtain portable KUB with contrast through the feeding tube to evaluate placement of feeding tube. X-ray imaging on my interpretation shows contrast within the gastric lumen with rugae noted, however will confirm via radiology interpretation to ensure that there is no extravasation of contrast. At this time, patient's care was transferred to the oncoming physician, Dr. Ontiveros, pending radiology interpretation and ultimate disposition. <Peri Ontiveros, DO - Last Filed: 04/08/25 19:36> Vital Signs: 04/08/25 14:09 04/08/25 14:30 04/08/25 15:00 Temperature 98.1 F Temperature Source Oral Pulse Rate 82 89 Pulse Rate [Radial] 77 Respiratory Rate 18 Blood Pressure 132/70 143/77 H Blood Pressure [Right Arm] 159/86 H Blood Pressure Mean 90 Blood Pressure Mean [Right Arm] 110 Blood Pressure Source Blood Pressure Source [Right Arm] Automatic Cuff Blood Pressure Position Blood Pressure Position [Right Arm] Sitting 02 Sat by Pulse Oximetry 97 96 96 Oxygen Delivery Method Room Air Room Air 04/08/25 15:30 04/08/25 16:00 04/08/25 16:52 Temperature 98.1 F Temperature Source Oral Pulse Rate 88 87 87 Pulse Rate [Radial] Respiratory Rate 18 Blood Pressure 148/78 H 146/75 H 146/75 H Blood Pressure [Right Arm] Blood Pressure Mean 101 98 Blood Pressure Mean [Right Arm] Blood Pressure Source Automatic Cuff Blood Pressure Source [Right Arm] Blood Pressure Position Sitting Blood Pressure Position [Right Arm] 02 Sat by Pulse Oximetry 96 96 Oxygen Delivery Method Room Air Lab Data Lab results reviewed: Yes I reviewed the patient's lab results. Orders (Tests/Meds): ED MEDICATIONS Discontinued Medications Generic Name Dose Route Start Last Admin Trade Name Freq PRN Reason Stop Dose Admin Acetaminophen 1,000 mg 04/08/25 16:34 Acetaminophen 325mg/10.15ml Udc PO 04/08/25 16:35 ONCE ONE Diatrizoate Meglum/Diatrizoate Sod 30 ml 04/08/25 14:27 04/08/25 14:29 Diatrizoate Meglumine(Gastrografin) 66%-10% 120ml PO 04/08/25 14:28 30 ml ONCE ONE Administration Gabapentin 600 mg 04/08/25 16:34 Gabapentin 300mg Capsule PO 04/08/25 16:35 ONCE ONE ORDERS Category Date Time Status XR KUB Stat Exams 04/08/25 14:10 Completed Medical Decision Narrative: Gia Farley is a 74y female with a past medical history of dysphagia, underweight, has a feeding tube in place, COPD who presents to the emergency department from group home for possible dislodged feeding tube. Per EMS, they did not get much of a report from the group home but states that today, her feeding tube made a gurgling noise instead of a whooshing noise and they were afraid it may be dislodged. They do not know what type of feeding regimen she gets. Reportedly, patient has been complaining of pain around the feeding tube site today. Patient is also complaining of neck pain to me that is chronic but denies any falls. EMS does not have any further history on the patient at this time. On arrival, patient is hemodynamically stable, BP 159/86, oxygenation 97% on room air, heart rate within normal limits. Physical exam, stated above, revealed overall nontoxic-appearing female in no distress. She does appear thin. A feeding tube in place to left upper quadrant without erythema. It is a 20 Lithuanian, 15 cm tube. No abdominal tenderness or distention. Cardiopulmonary exam is unremarkable. Nursing staff contacted nursing staff at the group home who stated that patient had returned from physical therapy this morning and was complaining of pain in her PEG site. They stated that the feeding tube was not making the whooshing sound that they typically expect but did have normal bowel sounds. They state the patient does get continuous feeds through this and intermittent flushes. She also gets comfort feedings by mouth but does not know the last time she ate. Patient was recently transferred from [facility] with PEG tube in place and group home staff does not know when it was placed, however patient states that it was February 11. Will obtain portable KUB with contrast through the feeding tube to evaluate placement of feeding tube. X-ray imaging on my interpretation shows contrast within the gastric lumen with rugae noted, however will confirm via radiology interpretation to ensure that there is no extravasation of contrast. At this time, patient's care was transferred to the oncoming physician, Dr. Ontiveros, pending radiology interpretation and ultimate disposition. Peri Ontiveros, DO I assumed care of the patient at 1500. KUB was interpreted by myself and read by radiologist and showed appropriate placement. Patient was discharged back to her nursing facility in stable condition via BLS. Critical Care <Marcio Ramos MD - Last Filed: 04/08/25 15:11> Critical Care Time Critical Care Time: No
[2025-04-08 14:09] VITALS: BP 159/86; PULSE 77; RESP 18; TEMP 36.7; O2SAT 97; BMI 16.2
--- NOTE | 2025-04-08 14:10 | XR_ITS ---
FINAL REPORT CLINICAL HISTORY: Possible dislodged feeding tube COMPARISON: None FINDINGS: SINGLE VIEW ABDOMEN A single view of the abdomen was obtained. Contrast is all within the gastric lumen. There is no evidence of extravasation. IMPRESSION: No evidence of extravasation. Reviewed, Interpreted and Dictated by Cem El MD Transcribed by Yamel Abbasi Authenticated and [facility]
[2025-04-08] MEDS: DIATRIZOATE MEGLUMINE(GASTROGRAFIN) 66%-10% 120ML 30 ML PO (14:29)
[2025-04-08 14:30] VITALS: BP 132/70; PULSE 82; O2SAT 96
--- OUTSIDE RECORDS SUMMARY | 2025-04-08 14:30 | XMS_ITS | Clinical Summary ---
Author Organization Healthcare Address [address] [id number] Care Team Providers Care Hard Hat Diver Name Role Phone Lawosn Yarbruogh MD Primary Care Provider [phone] Allergies Active Allergy Reactions Criticality Noted Date Comments Codeine Unknown - Patient st ates they do not know rxn details Low 01/22/2024 Medications chlorhexidine (Peridex) 0.12 % solution Use 15 mL in the mouth or throat 2 (two) times a day. 4 Active Cholecalciferol (VITAMIN D3 PO) Take 1 capsule by mouth 1 (one) time each day. Active Multiple Vitamins-Mineral s (multivitamin with minerals) tablet Take 1 tablet by mouth 1 (one) time each day. Active ibuprofen 200 MG tablet Take 1 tablet (200 mg) by mouth every 6 (six) hours if needed for mild pain. Active acetaminophen (Tylenol) 325 MG tablet Take 1 tablet (325 mg) by mouth every 6 (six) hours if needed for pain. Active gabapentin (Neurontin) 300 MG capsule Take 2 capsules (600 mg) by mouth every night for 3 days. 6 capsule 4 Active mirtazapine (Remeron) 15 MG tablet Take 2 tablets (30 mg) by mouth every night. 4 Active hydrOXYzine pamoate (Vistaril) 25 MG capsule Take 1 capsule (25 mg) by mouth every 6 (six) hours if needed for anxiety. 4 Active nicotine (Nicoderm CQ) 7 MG/24HR patch Place 1 patch on the skin 1 (one) time each day. 4 Active polyethylene glycol (Miralax) 17 g packet Take 17 g by mouth 1 (one) time each day. 4 Active Tiotropium [place] Monohydrate (Spiriva Respimat) 2.5 MCG/ACT inhaler Inhale 2 puffs 1 (one) time each day. 4 Active mometasone-formo terol (Dulera 100) 100-5 MCG/ACT inhaler Inhale 2 puffs 2 (two) times a day. Rinse mouth with water after use to reduce aftertaste and incidence of candidiasis. Do not swallow. 4 Active Active Problems Problem Noted Date Diagnosed Date Failure to thrive in adult 01/22/2024 Immunizations Immunization Administration Dates Next Due Influenza Vaccine, Quadrivalent, Adjuvanted 08/2020 Influenza, high-dose, quadrivalent 03/05/2023, Moderna COVID-19 Vaccine (Cable Driller) 12+ years 01/2021 Pneumococcal Conjugate PCV 13 05/09/2020 Social History Tobacco Use Types Packs/Day Years Used Date Smoking Tobacco: Never Assessed Humiliation, Afraid, Rape, a nd Kick questionnaire Answer Date Recorded Within the last year, have y ou been afraid of your partner or ex-partner? Patient unable to answer 01/27/2024 Within the last year, have y ou been humiliated or emotionally abused in other ways by your partner or ex-partner? Patient unable to answer 01/27/2024 Within the last year, have y ou been kicked, hit, slapped, or otherwise physically hurt by your partner or ex-partner? Patient unable to answer 01/27/2024 Within the last year, have y ou been raped or forced to have any kind of sexual activity by your partner or ex-partner? Patient unable to answer 01/27/2024 Hunger Vital Sign Answer Date Recorded Within the past 12 months, y ou worried that your food would run out before you got the money to buy more. Never true 01/27/20 24 Within the past 12 months, t he food you bought just didn't last and you didn't have money to get more. Never true 01/27/2024 PRAPARE - Transportation Answer Date Re corded In the past 12 months, has l ack of transportation kept you from medical appointments or from getting medications? No 01/08 In the past 12 months, has l ack of transportation kept you from meetings, work, or from getting things needed for daily living? No 01/27/2024 Housing Stability Vital Sign Answer Jose e Recorded In the last 12 months, was t here a time when you were not able to pay the mortgage or rent on time? No 01/27/2024 In the last 12 months, how many places have you lived? 1 01/27/2024 In the last 12 months, was t here a time when you did not have a steady place to sleep or slept in a jail (including now)? No 01/27/2024 Utilities Answer Date Recorded In the past 12 months has th e electric, gas, oil, or water company threatened to shut off services in your home? No 01/27/2024 Comments Unknown Sex and Gender Information Value Date Recorded Sex Assigned at Not on file Legal Sex Female 6:37 PM EDT Gender Identity Not on file Sexual Orientation Not on file Last Filed Vital Signs Vital Sign Reading Time Taken Comments Blood Pressure 131/68 02/02/2024 8:29 AM EDT Pulse 79 02/02/2024 8:29 AM EDT Temperature 36.9 C (98.4 F) 02/02/2024 8:29 AM EDT Respiratory Rate 16 02/02/2024 8:29 AM EDT Oxygen Saturation 94% 02/02/2024 8:29 AM EDT Inhaled Oxygen Concentration - - Weight 45.4 kg (100 lb 1.6 oz) 01/27/2024 7:21 P M EDT Height 172.7 cm (5' 8 ) 01/22/2024 11:15 PM EDT Body Mass Index 15.22 01/22/2024 11:15 PM EDT Plan of Treatment Health Maintenance Due Date Last Done Comments Dental Oral Exam 1950 Dental Prophylaxis 1950 Dental X-Ray: Bitewings 1950 Dental X-Ray: Full Mouth 1950 [facility]-Bone Density Scan 1950 [facility]-Depression Screening 1950 [facility]-Medicare Annual Wellness (AWV) 1950 [facility]-Infant/Child/Adol SDOH Screenings 1950 [facility]- SDOH Screenings 1970 [facility]-Adult SDOH Screenings 1970 [facility]-DTaP,Tdap,and Td Vaccines (1 - Tdap) 10/12/1971 CT Colonography 1997 Colonoscopy 1997 FIT-DNA 1997 FIT 1997 FOBT 1997 Sigmoidoscopy 1997 [facility]-Colorectal Cancer Screening 1997 [facility]-Breast Cancer Screening 2002 [facility]-Zoster Vaccines (1 of 2) 2002 [facility]-Pneumococcal Vaccine: 50+ Years (2 of 2 - PCV20 or PCV21) 05/09/2021 05/09/2020 [id number] Vaccine (6 - 2024- season) 2025 03/05/2023, 12/30/2021, 05/16/2021, Additional history exists [facility]-Influenza Vaccine (#1) 02/07/202503/05, 04/11/2021, 05/09/2020 [facility]-RSV Vaccine: 60+ Years or (1 - 1-dose 75+ series) 10/12/2027 [facility]-Hepatitis C Screening Completed 01/31/2024, HPV Vaccines Aged Out No longer eligi ble based on patient's age to complete this topic [facility]-HIB Vaccines Aged Out No longer e ligible based on patient's age to complete this topic [facility]-Hepatitis A Vaccines Aged Out No longer eligible based on patient's age to complete this topic [facility]-IPV Vaccines Aged Out No longer e ligible based on patient's age to complete this topic [facility]-Rotavirus Vaccines Aged Out No lo nger eligible based on patient's age to complete this topic Procedures Procedure Name Priority Date/Time Associated Diagnosis Comments HEPATITIS C VIRUS (HCV) QUANTITATIVE PCR Routine 01/31/2024 5:28 AM EDT from Last 3 Months or Most Recently Relevant to Health Maintenance Results * Hepatitis C Virus (HCV) Quantitative PCR (01/31/2024 5:28 AM EDT) Hepatitis C Virus (HCV) Quantitative Interpretation Not Detected Not Detected . 02/03/2024 7:24 AM EDT [facility] Blood Venous blood specimen / Unknown Venipuncture / Unknown 01/31/2024 5:28 AM EDT 01/31/2024 10:27 AM EDT Narrative [facility] - 02/03/2024 7:24 AM EDT The [employer] M2000 HCV test is a Real Time in vitro nucleic acid amplification test for the quantitation of Hepatitis C Viral (HCV) RNA in human serum in HCV-infected individuals. It is intended for use as an aid in the management of HCV-infected individuals undergoing anti-viral therapy. The dynamic range for this test is log10 = 1.08 to 8.00 and/or 12 to 100,000,000 IU/mL. The limit of detection (LOD) for this assay is 12 IU/mL and the limit of quantitation (LOQ) is 12 IU/mL. This assay is FDA approved for clinical use. Ascencion Reeves MD LAB BLOOD ORDERABLES Final Re sult [facility] [address] [place] [phone] from Last 3 Months or Most Recently Relevant to Health Maintenance Insurance MEDICARE Advance Directives * Full Code (Latest Code Status on File) Date Activated Date Inactivated Comments 01/22/2024 10:51 PM 02/02/2024 7:19 PM Question Answer Comments Patient has decision-making capacity? Yes Care Teams Hard Hat Diver Relationship Specialty Start Date End Date Lawson Yarbrough MD [address] [place], [place] [address] PCP - General 10/20/20
--- OUTSIDE RECORDS SUMMARY | 2025-04-08 14:31 | XMS_ITS | Encounter Summary ---
Author Organization Healthcare Address [address] [id number] Care Team Providers Care Library Specialist Name Role Phone Lawson Yarbrough MD Primary Care Provider [phone] Encounter Details Date Type Department Care Team (Late st Contact Info) Description 01/30/2024 Lab Requisition [facility] [address] [place] [address] Gladis Rogers MD [address] [place] [address] Unspecified general medical examination Social History Tobacco Use Types Packs/Day Years [...] place to sleep or slept in a residential (including now)? No 01/27/2024 Utilities Answer Date Recorded In the past 12 months has th e electric, gas, oil, or water company threatened to shut off services in your home? No 01/27/2024 Comments Unknown Sex and Gender Information Value Date Recorded Sex Assigned at Not on file Legal Sex Female 6:37 PM EDT Gender Identity Not on file Sexual Orientation Not on file documented as of this encounter Functional Status * Calculated C-SSRS Risk Score (Lifetime/Recent) Answer Date of Assessment Author No Risk Indicated 02/02/2024 8:00 AM EDT Emma Herrera LPN * Question Answer Date of Assessment Author 1. Wish to be (Past 1 Month) No 02/02/2024 8:00 AM EDT Blanka Herrera LPN 2. Non-Specific Active Suicidal Thoughts (Past 1 Month) No 02/02/2024 8:00 AM EDT Blanka Herrera LPN 6. Suicidal Behavior (Lifetime) No 02/02/2024 8:00 AM EDT Blanka Herrera LPN documented as of this encounter Plan of Treatment Not on file documented as of this encounter Procedures Procedure Name Priority Date/Time Associated Diagnosis Comments EXTRA TUBE LALA, FREEZE AND HOLD STAT 01/30/2024 6:01 PM EDT Unspecified general medical examination SOURCE, [facility] HIV AB/AG W/REFLEX TO HIV 1/2 ANTIBODY DIFFERNTIATION PERFORMABLE STAT 01/30/2024 6:01 PM EDT Unspecified general medical examination SOURCE, BBFE HCV QUANT PCR STAT 01/30/2024 6:01 PM EDT Unspecified general medical examination SOURCE, BBFE HIV AB/AG W/REFLEX TO HIV1/2 ANTIBODY DIFFERENTIATION STAT 01/30/2024 6:01 PM EDT Unspecified general medical examination SOURCE, BBFE HEPATITIS B S AG STAT 01/30/2024 6:01 PM EDT Unspecified general medical examination documented in this encounter Results * Extra Tube Lala, Freeze and Hold (01/30/2024 6:01 PM EDT) Blood Venous blood specimen / Unknown 01/30/2024 6:01 PM EDT 01/30/2024 6:12 PM EDT Gladis Rogers MD LAB BLOOD ORDERABLES Final Re sult Performing Organization Address City/[facility] Co de Phone Number [facility] [address] [place] [address] * Source, BBFE HIV AB/AG w/Reflex to HIV1/2 Antibody Differentiation (01/30/2024 6:01 PM EDT) Pathologist [facility] HIV 1 & 2 Antibody/Anti gen Screen Non Reactive Non Reactive 01/30/2024 7:04 PM EDT [facility] Blood Venous blood specimen / Unknown 01/30/2024 6:01 PM EDT 01/30/2024 6:12 PM EDT Gladis Rogers MD LAB BLOOD ORDERABLES Final Re sult Performing Organization Address City/[facility]/ZIP Co de Phone Number [facility] [address] [place] [address] * Source, BBFE HCV Quant PCR (01/30/2024 6:01 PM EDT) Pathologist [facility] Hepatitis C Virus (HCV) Quantitative Interpretation Not Detected Not Detected . 02/03/2024 7:24 AM EDT [facility] Blood Venous blood specimen / Unknown 01/30/2024 6:01 PM EDT 01/30/2024 6:12 PM EDT Narrative [facility] - 02/03/2024 7:24 AM EDT The [employer] M2000 HCV test is a Real Time [...] assay is FDA approved for clinical use. Gladis Rogers MD LAB BLOOD ORDERABLES Final Re sult Performing Organization Address [facility] de Phone Number [facility] [address] [place] [address] * Source, BBFE Hepatitis B S AG (01/30/2024 6:01 PM EDT) [facility] Signature Hepatitis B Surf Antigen Negative Negative 01/30/2024 7:04 PM EDT [facility] Blood Venous blood specimen / Unknown 01/30/2024 6:01 PM EDT 01/30/2024 6:12 PM EDT Gladis Rogers MD LAB BLOOD ORDERABLES Final Re sult Performing Organization Address City/[facility] Co de Phone Number [facility] [address] [place] [address] documented in this encounter Visit Diagnoses Diagnosis Unspecified general medical examination documented in this encounter Additional Health Concerns Assessment Noted Time A Body Mass Index follow-up plan has been documented for the patient 01/30/2024 3:09 PM EDT documented as of this encounter Care Teams Library Specialist Relationship Specialty Start Date End Date Lawson Yarbrough MD [address] [place] [address] PCP - General 10/20/20 documented as of this encounter
[2025-04-08 15:00] VITALS: BP 143/77; PULSE 89; O2SAT 96
[2025-04-08 15:30] VITALS: BP 148/78; PULSE 88; O2SAT 96
[2025-04-08 16:00] VITALS: BP 146/75; PULSE 87; O2SAT 96
[2025-04-08 16:52] VITALS: BP 146/75; PULSE 87; RESP 18; TEMP 36.7; O2SAT 96
== END 2025-04-08 16:52 ==
PROVIDERS: Emergency Provider Student in an Organized Health Care Education/Training Program
DX: K94.20 Gastrostomy complication, unspecified (principal)
CPT/HCPCS: 74018; 99283; 99284; Q9963

== ENCOUNTER 2025-04-19 09:19 | Day surgery (SDC) | payer MEDICARE, SELFPAY ==
[2025-04-19 09:53] VITALS: BP 119/57; PULSE 75; RESP 18; O2SAT 92
[2025-04-19] MEDS: LACTATED RINGERS 1000ML 1,000 ML 50 ML IV (09:59)
--- NOTE | 2025-04-19 10:19 | P.PNANES_ITS ---
[facility] Disclaimer: The information contained in this section may have been updated after the patient was seen, as this information can be updated by other users. Medical History Neuropathy Abnormal CT of the chest COPD (chronic obstructive pulmonary disease) Large bullae/bleb right apex. No evidence of malignancy History of cataract Depression Surgical History History of surgery on wrist Family History Other Cancer Social History Smoking Status: Never smoker smoking status start date: 40 yrs ago alcohol intake: never substance use type: denies use current occupational status: retired Travel in the last 8 weeks?: None household members: family housing: house marital status: single number of children: 1 Have you lived/traveled outside US in past 30 days?: No Contact w/someone who lives/traveled outside US past 30 days?: No Exposure to someone with infectious disease in past 14 days?: No Do you have a fever (greater than 100.4 F or 38 C)?: No Have you tested positive for COVID-19?: No Exposed to someone with COVID-19 in past 14 days?: No Do you have a sore throat?: No Do you have a cough?: No Do you have any weakness?: No Do you have any diarrhea?: No Are you experiencing any unusual bleeding?: No Do you have any muscle aches/pain?: No Do you have any abdominal pain?: No Are you experiencing loss of taste or smell?: No [facility] Anesthesia Checklist Patient Identification Patient Identification: Arm Band Structural Data Admitted From: Home Planned Operative Procedure/s: EGD Consent for Planned Operative Procedure(s) Verified: Yes Verified Documents: Surgical Consent and History and Physical NPO Status Verified Time NPO: 00:00 Additional verifications Anesthesia Reactions: No Airway Assessment Mallampati Score:: Class II C-Spine Mobility Assessed: Yes TMJ Mobility Assessed: Yes Dentition: Edentulous Neurological Assessment Level of Consciousness: Awake, Alert and Appropriate Anesthesia Plan Anesthesia Risk discussed: Yes Anesthesia Plan: Verified ASA Class: III Anesthesia Type: MAC
--- NOTE | 2025-04-19 10:20 | EXP.GEN.HP ---
HPI HPI HPI: This is a 74-year-old female who presents for esophagogastroduodenoscopy. She has had increasing dysphagia over the past few years. During her recent hospitalization and [facility] she underwent PEG placement. She continues to have difficulty swallowing. Per the patient's family some sort of swallowing study was recently completed at [facility]. [facility] Disclaimer: The information contained in this section may have been updated after the patient was seen, as this information can be updated by other users. Medical History Neuropathy Abnormal CT of the chest COPD (chronic obstructive pulmonary disease) Large bullae/bleb right apex. No evidence of malignancy History of cataract Depression Surgical History History of surgery on wrist Family History Other Cancer Social History Smoking Status: Never smoker smoking status start date: 40 yrs ago alcohol intake: never substance use type: denies use current occupational status: retired Travel in the last 8 weeks?: None household members: family housing: house marital status: single number of children: 1 Have you lived/traveled outside US in past 30 days?: No Contact w/someone who lives/traveled outside US past 30 days?: No Exposure to someone with infectious disease in past 14 days?: No Do you have a fever (greater than 100.4 F or 38 C)?: No Have you tested positive for COVID-19?: No Exposed to someone with COVID-19 in past 14 days?: No Do you have a sore throat?: No Do you have a cough?: No Do you have any weakness?: No Do you have any diarrhea?: No Are you experiencing any unusual bleeding?: No Do you have any muscle aches/pain?: No Do you have any abdominal pain?: No Are you experiencing loss of taste or smell?: No Other Medical History Have you received the Flu Vaccine for this season: No Have you received the Pneumonia Vaccine: No Review of Systems Review of Systems Review of systems:: pertinent systems reviewed and negative unless documented below *Gastrointestinal Gastrointestinal: Reports as per HPI *Neurologic Neurologic: Reports abnormal movements Meds Home Medications and Allergies Home Medications ?Medication ?Instructions ?Recorded ?Confirmed ?Type multivitamin 1 tab PO DAILY 11/17/23 04/19/25 History buspirone 5 mg tablet 5 mg PO BID 10/14/24 04/19/25 History mirtazapine 30 mg tablet 30 mg PO HS 10/15/24 04/19/25 History cefdinir 300 mg capsule 300 mg PO BID 2 days #4 caps 10/17/24 04/19/25 Rx gabapentin 300 mg capsule 300 mg PO 1200 30 days #30 caps 10/17/24 04/19/25 Rx gabapentin 300 mg capsule 600 mg (2 x 300 mg) PO HS 30 days 10/17/24 04/19/25 Rx #60 caps ipratropium 0.5 mg-albuterol 3 mg 3 ml inhalation Q6HP PRN Shortness 10/17/24 04/19/25 Rx (2.5 mg base)/3 mL nebulization Of Breath 30 days #90 mL soln cetirizine 5 mg chewable tablet 5 mg PO DAILY 04/19/25 04/19/25 History metoprolol tartrate 25 mg tablet 25 mg PO BID 04/19/25 04/19/25 History sertraline 100 mg tablet 100 mg PO DAILY 04/19/25 04/19/25 History trazodone 50 mg tablet 50 mg PO DAILY 04/19/25 04/19/25 History New Prescriptions to Start Prescriptions: Allergies Allergy/AdvReac Type Severity Reaction Status Date / Time Sulfa (Sulfonamide Allergy Unknown Hives Verified 04/19/25 09:46 Antibiotics) Exam Data for Last 24 hours Vital signs and Labs for Last 24 Hours: Pulse Resp BP Pulse Ox O2 Del Method 75 18 119/57 L 92 L Room Air 04/19/25 09:53 04/19/25 09:53 04/19/25 09:53 04/19/25 09:53 04/19/25 09:53 I & O for Last 24 hours: Intake & Output 04/16/25 04/17/25 04/18/25 04/19/25 11:59 11:59 11:59 11:59 Weight 98 lb 12.8 oz Constitutional Constitutional: no acute distress *Routine HEENT Exam Head: Present atraumatic Eye: Absent conjunctival icterus ENT: Present mucous membranes dry *Routine Neck Exam Neck: Absent swelling *Routine Respiratory Exam Respiratory: Absent respiratory distress *Routine Cardiovascular Exam Cardiovascular: Absent tachycardia *Routine Abdominal Exam Abdominal: Present soft *Routine Rectal Exam Rectal:: deferred *Routine Genitalia Exam Genitalia:: deferred *Routine Extremities Exam Extremities: Absent tenderness *Routine Skin Exam Skin: Absent erythema *Routine Neurological Exam Neurological: Absent oriented X3 Assessment and Plan *Assessment and plan (1) Dysphagia: Status: Acute Qualifiers: Dysphagia type: unspecified Qualified Code(s): R13.10 - Dysphagia, unspecified Category: Medical Code(s): R13.10 - Dysphagia, unspecified (2) Declining functional status: Status: Acute Category: Medical Code(s): R53.81 - Other malaise Plan Obtain swallowing study results from [facility] Esophagogastroduodenoscopy today I have discussed the risks and benefits including, but not limited to: Bleeding Infection Damage to surrounding tissue Inherent risks of sedation The patient agrees to proceed.
--- NOTE | 2025-04-19 10:24 | HMH.SCOPE ---
Procedure: Date: 04/19/25 Patient Date of :: 1950 Procedure Performed:: Esophagogastroduodenoscopy with biopsy Indications:: Dysphagia Performing Provider:: Aravind Lynch MD Referring Provider:: . Sedation:: Monitored anesthesia care Procedure:: After informed consent was obtained the patient was taken to the endoscopy suite. Sedation ensued after the patient was transferred to the left lateral decubitus position. Pulse, blood pressure, and oxygen saturation were monitored throughout the procedure. The endoscope was advanced beyond the duodenal bulb. Retroflexion within the gastric lumen was accomplished. The gastroscope was carefully removed and the patient was transferred to recovery in stable condition. Please see findings and specimens below for detail. Findings:: Patulous esophagus/esophageal dysmotility No definitive mechanical stricture Small sliding hiatal hernia Percutaneous endoscopic gastrostomy tube bumper in upper mid gastric body Mild patchy gastritis Specimens:: Antral biopsy Recommendations:: Follow-up pathology Obtain results of recent swallowing study performed at [facility] Complications:: No immediate Estimated blood obtained (mL): 1 Colonoscopy Component Colonoscopy Component Was a colonoscopy performed during today's procedure?: No
[2025-04-19 10:39] VITALS: BP 105/58; PULSE 62; RESP 16; TEMP 36.3; O2SAT 96
[2025-04-19 10:54] VITALS: BP 124/73; PULSE 77; RESP 16; TEMP 36.3; O2SAT 95
[2025-04-19 11:09] VITALS: BP 142/87; PULSE 78; RESP 16; TEMP 36.3; O2SAT 95
== END 2025-04-19 11:31 | disposition home or self-care (01) ==
PROVIDERS: PCP Internal Medicine Adolescent Medicine; Visit Provider Surgery
PROC: 0DJ08ZZ Inspection of Upper Intestinal Tract, Via Natural or Artificial Opening Endoscopic (ICD-10-PCS; CPT 43239; principal; 2025-04-19 10:15)
DX: K22.4 Dyskinesia of esophagus (principal); K44.9 Diaphragmatic hernia without obstruction or gangrene; K29.70 Gastritis, unspecified, without bleeding; K31.89 Other diseases of stomach and duodenum; J44.9 Chronic obstructive pulmonary disease, unspecified; Z88.2 Allergy status to sulfonamides; Z93.1 Gastrostomy status
CPT/HCPCS: 43239; 88305; J2003; J2704; J7120